=== PATIENT | male | born 1960 | race Caucasian/White ===

== ENCOUNTER → 2017-01-05 | Outpatient (CLI) | payer OTHER ==
[2017-01-05 11:57] LABS: ALT 68 U/L (21-72); AST 39 U/L (17-59); Alkaline Phosphatase 59 U/L (38-126); Anion Gap 10 mmol/L; Blood Urea Nitrogen 26 mg/dL (9-20); Calcium 9.5 mg/dL (8.4-10.2); Carbon Dioxide 28 mmol/L (22-30); Chloride 104 mmol/L (98-107); Cholesterol 324 mg/dL (<200); Glucose 103 mg/dL (74-99); HDL Cholesterol 60 mg/dL (40-60); Non-African American GFR(MDRD) 54 (>60 ml/min/1.73 sqM); Potassium 5.1 mmol/L (3.5-5.1); Sodium 142 mmol/L (137-145); Total Bilirubin 0.9 mg/dL (0.2-1.3); Total Protein 7.6 g/dL (6.3-8.2); Triglycerides 153 mg/dL (<150)
== END | disposition home or self-care (01) ==
LOC: LABWHC1 11:14
PROVIDERS: ATTEND Internal Medicine Endocrinology, Diabetes & Metabolism
DX: E11.9 Type 2 diabetes mellitus without complications (principal); E21.3 Hyperparathyroidism, unspecified
CPT/HCPCS: 36415; 80053; 80061; 82043; 82306; 83970

== ENCOUNTER → 2017-06-29 | Outpatient (CLI) | payer OTHER ==
[2017-06-29 07:48] LABS: ALT 44 U/L (21-72); AST 36 U/L (17-59); Alkaline Phosphatase 48 U/L (38-126); Anion Gap 9 mmol/L; Blood Urea Nitrogen 23 mg/dL (9-20); Calcium 9.5 mg/dL (8.4-10.2); Carbon Dioxide 26 mmol/L (22-30); Chloride 104 mmol/L (98-107); Cholesterol 263 mg/dL (<200); Glucose 101 mg/dL (74-99); HDL Cholesterol 51 mg/dL (40-60); Non-African American GFR(MDRD) 57 (>60 ml/min/1.73 sqM); Potassium 4.8 mmol/L (3.5-5.1); Sodium 139 mmol/L (137-145); Total Protein 7.3 g/dL (6.3-8.2)
[2017-06-29 17:13] LABS: Urine Creatinine 180.3 mg/dL
== END | disposition home or self-care (01) ==
LOC: LABWHC1 07:08
PROVIDERS: ATTEND Internal Medicine Endocrinology, Diabetes & Metabolism
DX: E11.9 Type 2 diabetes mellitus without complications (principal)
CPT/HCPCS: 36415; 80053; 80061; 82043; 82306; 82570

== ENCOUNTER → 2017-10-01 | Outpatient (CLI) | payer OTHER ==
[2017-10-01 09:18] LABS: Basophils # (A) 0.1 k/uL (0-0.2); Basophils % (A) 1 %; CHCM 32.1; Eosinophils # (A) 0.1 k/uL (0-0.7); Eosinophils % (A) 1 %; HCT 50.4 % (39.0-53.0); HGB 15.9 gm/dL (13.0-17.5); Luc # (Auto) 0.11; Luc % (Auto) 2; Lymphocytes # (A) 1.8 k/uL (1.0-4.8); Lymphocytes % (A) 31 %; MCH 30.6 pg (25.0-35.0); MCHC 31.6 g/dL (31.0-37.0); MCV 96.9 fL (80.0-100.0); Mean Platelet Volume 7.3; Monocytes # (A) 0.4 k/uL (0-1.0); Monocytes % (A) 6 %; Neutrophils # (A) 3.5 k/uL (1.3-7.7); Neutrophils % (A) 59 %; RBC 5.21 m/uL (4.30-5.90); RDW 15.4 % (11.5-15.5); WBC (Perox) 5.71
[2017-10-01 09:44] LABS: Appearance,Urine Clear (Clear); Bilirubin,Urine Negative (Negative); Glucose,Urine (UA) Negative (Negative); Ketones,Urine Negative (Negative); Leukocyte Esterase,Urine Negative (Negative); Nitrite,Urine Negative (Negative); PH, Urine 5.5 (5.0-8.0); Protein,Urine Negative (Negative); UA Billing (MACRO vs. MICRO) CHEM; Urobilinogen,Urine <2.0 mg/dL (<2.0)
[2017-10-01 11:39] LABS: ALT 53 U/L (21-72); AST 42 U/L (17-59); Alkaline Phosphatase 56 U/L (38-126); Anion Gap 8 mmol/L; Blood Urea Nitrogen 26 mg/dL (9-20); Calcium 9.7 mg/dL (8.4-10.2); Carbon Dioxide 28 mmol/L (22-30); Chloride 103 mmol/L (98-107); Cholesterol 280 mg/dL (<200); Creatine Kinase 206 U/L (55-170); Glucose 95 mg/dL (74-99); HDL Cholesterol 45 mg/dL (40-60); Non-African American GFR(MDRD) 56 (>60 ml/min/1.73 sqM); Potassium 5.2 mmol/L (3.5-5.1); Sodium 139 mmol/L (137-145); Total Bilirubin 0.8 mg/dL (0.2-1.3); Total Protein 7.5 g/dL (6.3-8.2)
[2017-10-01 12:37] LABS: Rheumatoid Factor, Qnt <9 IU/mL (<12)
[2017-10-01 13:29] LABS: Erythrocyte Sedimentation Rate 8 mm/hr (0-15)
--- NOTE | 2017-10-01 16:31 | US ---
EXAMINATION TYPE: US thyroid st tissue head/neck DATE OF EXAM: 10/01/2017 COMPARISON: NONE CLINICAL HISTORY: 57-year-old male R59.0 Cervical adenopathy. 2 palpable right neck areas for 6 month s. TECHNIQUE: Multiple sonographic images along the right side of the neck at the palpable sites. Some c omparison images of the contralateral side were also obtained. FINDINGS: Right neck posterior palpable area #1: 1.7 x 1.0 x 1.3cm borderline-enlarged lymph node. Right neck anterior palpable area #2: no abnormalities seen at this time. Left neck for comparison: no abnormalities seen at this time. IMPRESSION: 2 palpable sites along the right neck. More posteriorly, there is a borderline enlarged 1.3 cm (short axis) lymph node. This can be followed clinically. The second palpable site anteriorly shows no disc rete abnormality at this time.
[2017-10-01 16:50] LABS: ANA w/Reflex to Titer NEGATIVE (NEGATIVE)
== END | disposition home or self-care (01) ==
LOC: RADUSWWP 08:16
PROVIDERS: ATTEND Family Medicine
DX: R59.0 Localized enlarged lymph nodes (principal); E78.5 Hyperlipidemia, unspecified; E21.3 Hyperparathyroidism, unspecified; E11.9 Type 2 diabetes mellitus without complications; E55.9 Vitamin D deficiency, unspecified; M25.50 Pain in unspecified joint; N39.490 Overflow incontinence
CPT/HCPCS: 36415; 76536; 80053; 80061; 81003; 82043; 82306; 82533; 82550; 82570; 83036; 83970; 84443; 85025; 85652; 86038; 86431

== ENCOUNTER → 2018-02-04 | Outpatient (CLI) | payer BC ==
[2018-02-04 09:42] LABS: Albumin 4.5 g/dL (3.5-5.0); Calcium 9.8 mg/dL (8.4-10.2); Total Protein 7.5 g/dL (6.3-8.2)
[2018-02-04 15:54] LABS: Parathyroid Hormone Intact 72.2 pg/mL (14.0-72.0)
[2018-02-04 15:57] LABS: Vitamin D 25 Hydroxy 41.1 ng/mL (30.0-100.0)
== END | disposition home or self-care (01) ==
LOC: LABWHC1 08:50
PROVIDERS: ATTEND Internal Medicine Endocrinology, Diabetes & Metabolism
DX: E11.9 Type 2 diabetes mellitus without complications (principal); E21.3 Hyperparathyroidism, unspecified; E55.9 Vitamin D deficiency, unspecified
CPT/HCPCS: 36415; 80053; 82306; 83036; 83970

== ENCOUNTER → 2018-09-28 | Outpatient (CLI) | payer BC ==
[2018-09-28 16:51] LABS: Vitamin D 25 Hydroxy 26.6 ng/mL (30.0-100.0)
[2018-09-28 16:58] LABS: Albumin 4.5 g/dL (3.80-4.90); Albumin/Globulin Ratio 2.25 (1.20-2.10); Anion Gap 6.2 mmol/L (4.00-12.00); Calcium 9.5 mg/dL (8.7-10.3); Carbon Dioxide 28.8 mmol/L (21.6-31.8); LDL Cholesterol,Calculated 108.8 mg/dL (0.0-131.0); Potassium 5.5 mmol/L (3.5-5.5); Total Protein 6.5 g/dL (6.2-8.2); VLDL Calculation 23.2 mg/dL (5.00-40.00)
[2018-09-28 17:05] LABS: Parathyroid Hormone Intact 91.5 pg/mL (14.0-72.0)
[2018-09-28 18:32] LABS: Hemoglobin A1C 6.3 % (4.0-6.0)
== END | disposition home or self-care (01) ==
LOC: LABWHC1 08:39
PROVIDERS: ATTEND Internal Medicine Endocrinology, Diabetes & Metabolism
DX: E11.65 Type 2 diabetes mellitus with hyperglycemia (principal); E21.3 Hyperparathyroidism, unspecified; E78.5 Hyperlipidemia, unspecified
CPT/HCPCS: 36415; 80053; 80061; 82043; 82306; 82550; 82570; 82607; 83036; 83970; 84443

== ENCOUNTER 2019-02-21 03:28 | Emergency (ER) | payer BC ==
[2019-02-21] MEDS ORDERED: IPRATROPIUM-ALBUTEROL 3 ML NEB INHALATION STA (04:02)
[2019-02-21] MEDS ORDERED: predniSONE 20 MG TAB PO STA (04:03)
--- NOTE | 2019-02-21 04:52 | XR ---
EXAM: XR Chest, 2 Views CLINICAL HISTORY: ITS.REASON XR Reason: cough TECHNIQUE: Frontal and lateral views of the chest. COMPARISON: 10/02/2016. FINDINGS: Lungs: Low lung volumes. Lungs appear clear. Pleural space: Unremarkable. No pneumothorax. Heart: Stable cardiomediastinal silhouette. Mediastinum: See above. Bones/joints: Degenerative changes of the thoracic findings Tubes, lines and devices: Stable left chest wall pacemaker. IMPRESSION: No acute findings.
--- NOTE | 2019-02-21 04:54 | ED ---
SOB HPI - General Chief Complaint: Shortness of Breath Stated Complaint: IMELDA Time Seen by Provider: 02/21/19 04:02 Source: patient, family Mode of arrival: ambulatory Limitations: no limitations - History of Present Illness Initial Comments: This is a 58-year-old gentleman with a history of asthma presents the emergency department today for evaluation of wheezing and shortness of breath. Patient reports that in the past his asthma has been exacerbated by weather changes, he did spend last week in [place] reports that he did have some wheezing throughout that trip. Patient reports he is feeling better yesterday, he went to bed feeling fine he woke suddenly this morning with wheezing coughing he felt as though he couldn't get his breath. He attempted to use his MDI inhaler with minimal relief at which time his decided to bring the ER for evaluation. She patient denies any chest pain or palpitations he describes feeling as though his airways are very tight and he is wheezing and coughing. Patient does have a history of significant GERD which she had surgical repair of his esophagus for 10 or 12 years ago is now evidently of medications since that time however he does report that recently has been having some acid reflux-like symptoms and his does confirm he's been complaining of acid reflux especially after eating. the patient is scheduled to see Dr. Issa in the near future for evaluation of abdominal pain and will discuss possible plan for colonoscopy and endoscopy. - Related Data Home Medications Medication Instructions Recorded Confirmed Metoprolol Tartrate [Lopressor] 25 mg PO BID 09/11/14 10/06/16 Venlafaxine HCl [Effexor] 50 mg PO DAILY 09/11/14 10/06/16 Flecainide Acetate 50 mg PO Q8H 12/18/14 10/06/16 Temazepam [Restoril] 30 mg PO HS PRN 12/18/14 10/06/16 Venlafaxine HCl [Effexor] 25 mg PO HS 12/18/14 10/06/16 Previous Rx's Medication Instructions Recorded Tamsulosin HCl [Flomax] 0.4 mg PO DAILY #10 cap 09/11/14 predniSONE [Deltasone] 40 mg PO DAILY 5 Days #10 tablet 02/21/19 Allergies Allergy/AdvReac Type Severity Reaction Status Date / Time No Known Allergies Allergy Verified 02/21/19 03:36 Review of Systems ROS Statement: Those systems with pertinent positive or pertinent negative responses have been documented in the HPI. ROS Other: All systems not noted in ROS Statement are negative. Past Medical History Past Medical History: Asthma, Diabetes Mellitus Additional Past Medical History / Comment(s): tachycardia, PVC'S History of Any Multi-Drug Resistant Organisms: None Reported Past Surgical History: Back Surgery, Orthopedic Surgery, Pacemaker Additional Past Surgical History / Comment(s): LT KNEE SX X2. RT KNEE SCOPE. HIATAL HERNIA REPAIR. COLONOSCOPY Past Anesthesia/Blood Transfusion Reactions: Previous Problems w/ Anesthesia Additional Past Anesthesia/Blood Transfusion Reaction / Comment(s): SLOW TO COME OUT OF ANESTHESIA Type of Cardiac Device: Permanent Pacemaker Device Placement Date:: 2010 Past Psychological History: Depression Smoking Status: Never smoker Past Alcohol Use History: None Reported Past Drug Use History: None Reported - Past Family History Father Family Medical History: Cancer Mother Family Medical History: Deep Vein Thrombosis (DVT), Rheumatoid Arthritis (RA) General Exam - General Exam Comments Initial Comments: Physical Exam GENERAL: Patient is well-developed and well-nourished. Patient is nontoxic and well-hydrated, patient is coughing very loudly has audit ory expiratory wheezing without a stethoscope HENT: Normocephalic, Atraumatic. EYES: PERRL, EOMI PULMONARY: Tachypnea, agrees work of breathing, significant wheezing no stridor CARDIOVASCULAR: There is a regular rate and rhythm without any murmurs gallops or rubs. ABDOMEN: Soft and nontender with normal bowel sounds. SKIN: Skin is clear with no lesions or rashes and otherwise unremarkable. : Deferred NEUROLOGIC: Patient is alert and oriented x3. Moving all extremities spontaneously MUSCULOSKELETAL: Normal extremities with adequate strength and full range of motion. No lower e xtremity swelling or edema. No calf tenderness. PSYCHIATRIC: Normal psychiatric evaluation. Limitations: no limitations Limitations: no limitations Course Vital Signs 02/21/19 02/21/19 02/21/19 03:33 04:17 04:37 Temperature 97.7 F Pulse Rate 62 60 65 Respiratory 24 Rate Blood Pressure 110/74 O2 Sat by Pulse 100 Oximetry Medical Decision Making - Medical Decision Making Patient was seen and evaluated patient with a significant cough and expiratory wheeze has a history of asthma no history of COPD Breathing treatments chest x-ray and steroids were ordered Patient was reevaluated after treatment, complete resolution of the wheezing he's feeling much better there is no increased work of breathing he is somewhat jittery from the breathing treatments and steroids if a chest x-ray with no acute findings at this time the patient is comfortable with the plan for discharge home and by mouth steroids he is arty scheduled to follow-up with a building maintenance superintendent Dr. Hawkins. I did discuss with the patient possible etiology for his wheezing including weather changes versus silent aspiration of gastric contents giving that he is been experiencing GERD and this did happen at night. Patient is scheduled to follow-up with Dr Haro on abdominal pain and possible colonoscopy he will discuss this with him at that time and discussed the possibility of endoscopy as well. All questions pertaining care were answered return parameters were discussed and the patient was discharged home in stable condition - EKG Data -: EKG Interpreted by Me EKG shows normal: sinus rhythm Rate: normal EKG Comments: EKG was obtained at 3:46 AM, rate is 62 rhythm is sinus there is a normal axis OH is prolonged at 314, QRS 114, QTC to [address] elevations or depressions no evidence of acute ischemia or infarction. This is sinus rhythm with first-degree AV block. Disposition Clinical Impression: Asthma with exacerbation Disposition: HOME SELF-CARE Condition: Stable Instructions (If sedation given, give patient instructions): Asthma (ED) Prescriptions: predniSONE [Deltasone] 40 mg PO DAILY 5 Days #10 tablet Is patient prescribed a controlled substance at d/c from ED?: No Referrals: Floresita Bonilla MD [Primary Care Provider] - 1-2 days
[2019-02-21 06:12] VITALS: BP 127/85; PULSE 73; RESP 16; TEMP 98
== END 2019-02-21 06:05 | disposition home or self-care (01) ==
LOC: EC 03:28
DX: J45.901 Unspecified asthma with (acute) exacerbation (principal); F32.9 Major depressive disorder, single episode, unspecified; Z79.899 Other long term (current) drug therapy; Z95.0 Presence of cardiac pacemaker
CPT/HCPCS: 94640; 93005; 71046; 99285; J7512

== ENCOUNTER → 2019-02-25 | Outpatient (CLI) | payer BC ==
[2019-02-25 16:51] LABS: Albumin 4.6 g/dL (3.80-4.90); Anion Gap 6.9 mmol/L (4.00-12.00); Calcium 10.2 mg/dL (8.7-10.3); Carbon Dioxide 28.1 mmol/L (21.6-31.8); Globulin 2.3 g/dL (1.6-3.3); Potassium 5.1 mmol/L (3.5-5.5); Total Bilirubin 0.9 mg/dL (0.3-1.2); Total Protein 6.9 g/dL (6.2-8.2)
[2019-02-25 19:09] LABS: Hemoglobin A1C 6.4 % (4.0-6.0)
== END | disposition home or self-care (01) ==
LOC: LABWHC1 08:20
PROVIDERS: ATTEND Internal Medicine Endocrinology, Diabetes & Metabolism
DX: E11.65 Type 2 diabetes mellitus with hyperglycemia (principal); E55.9 Vitamin D deficiency, unspecified
CPT/HCPCS: 36415; 80053; 82306; 83036; 84443

== ENCOUNTER → 2019-06-16 | Outpatient (CLI) | payer BC ==
[2019-06-16 11:39] LABS: African American GFR (CKD) 62.4 (60.0-200.0); Albumin 4.3 g/dL (3.80-4.90); Albumin/Globulin Ratio 2.15 (1.60-3.17); Anion Gap 6.4 mmol/L (4.00-12.00); BUN/Creat Ratio 15.71 Ratio (12.00-20.00); Calcium 9.4 mg/dL (8.7-10.3); Carbon Dioxide 27.6 mmol/L (21.6-31.8); LDL Cholesterol,Calculated 111.4 mg/dL (0.0-131.0); Potassium 4.7 mmol/L (3.5-5.5); Total Bilirubin 0.5 mg/dL (0.3-1.2); Total Protein 6.3 g/dL (6.2-8.2); VLDL Calculation 27.6 mg/dL (5.00-40.00)
[2019-06-16 11:50] LABS: Vitamin D 25 Hydroxy 42.8 ng/mL (30.0-100.0)
[2019-06-16 15:31] LABS: Hemoglobin A1C 6.1 % (4.0-6.0)
== END | disposition home or self-care (01) ==
LOC: LABWHC1 07:28
PROVIDERS: ATTEND Internal Medicine Endocrinology, Diabetes & Metabolism
DX: E11.65 Type 2 diabetes mellitus with hyperglycemia (principal); E55.9 Vitamin D deficiency, unspecified; E21.3 Hyperparathyroidism, unspecified; E78.5 Hyperlipidemia, unspecified; Z12.5 Encounter for screening for malignant neoplasm of prostate
CPT/HCPCS: 80061; 80053; 84443; 82306; 83970; 82043; 82570; 83036; 36415; G0103

== ENCOUNTER → 2019-09-30 | Outpatient (CLI) | payer BC ==
[2019-09-30 17:25] LABS: African American GFR (CKD) 68.3 (60.0-200.0); Albumin 4.6 g/dL (3.80-4.90); Albumin/Globulin Ratio 2.3 (1.60-3.17); Anion Gap 6.6 mmol/L (4.00-12.00); BUN/Creat Ratio 16.15 Ratio (12.00-20.00); Calcium 9.5 mg/dL (8.7-10.3); Carbon Dioxide 29.4 mmol/L (21.6-31.8); Chol/HDL Ratio 4.38; LDL Cholesterol,Calculated 153.2 mg/dL (0.0-131.0); Potassium 5.2 mmol/L (3.5-5.5); Total Bilirubin 0.8 mg/dL (0.3-1.2); Total Protein 6.6 g/dL (6.2-8.2); VLDL Calculation 32.8 mg/dL (5.00-40.00)
[2019-09-30 19:01] LABS: Hemoglobin A1C 5.9 % (4.0-6.0)
== END | disposition home or self-care (01) ==
LOC: LABWHC1 09:43
PROVIDERS: ATTEND Internal Medicine Endocrinology, Diabetes & Metabolism
DX: E11.9 Type 2 diabetes mellitus without complications (principal); E55.9 Vitamin D deficiency, unspecified; E21.3 Hyperparathyroidism, unspecified
CPT/HCPCS: 36415; 80053; 80061; 82306; 83036; 83970

== ENCOUNTER → 2020-01-17 | Outpatient (CLI) | payer BC ==
[2020-01-17 15:53] LABS: African American GFR (CKD) 62.4 (60.0-200.0); Albumin 4.4 g/dL (3.80-4.90); Albumin/Globulin Ratio 1.91 (1.60-3.17); Anion Gap 6.3 mmol/L (4.00-12.00); BUN/Creat Ratio 17.14 Ratio (12.00-20.00); Calcium 9.6 mg/dL (8.7-10.3); Carbon Dioxide 30.7 mmol/L (21.6-31.8); Chol/HDL Ratio 2.94; Globulin 2.3 g/dL (1.6-3.3); LDL Cholesterol,Calculated 119.8 mg/dL (0.0-131.0); Non-African American GFR(CKD) 53.8 (60.0-200.0); Total Bilirubin 1.2 mg/dL (0.2-1.2); Total Protein 6.7 g/dL (6.2-8.2); VLDL Calculation 16.2 mg/dL (5.00-40.00)
[2020-01-17 17:13] LABS: Hemoglobin A1C 6.3 % (4.0-6.0)
== END | disposition home or self-care (01) ==
LOC: LABWHC1 08:44
PROVIDERS: ATTEND Internal Medicine Endocrinology, Diabetes & Metabolism
DX: E11.9 Type 2 diabetes mellitus without complications (principal); E55.9 Vitamin D deficiency, unspecified; E21.3 Hyperparathyroidism, unspecified
CPT/HCPCS: 36415; 80053; 80061; 82306; 83036; 83970

== ENCOUNTER → 2020-09-13 | Outpatient (CLI) | payer BC ==
[2020-09-13 17:52] LABS: Albumin 4.3 g/dL (3.80-4.90); Albumin/Globulin Ratio 1.95 (1.60-3.17); Anion Gap 7.1 mmol/L (4.00-12.00); BUN/Creat Ratio 12.86 Ratio (12.00-20.00); Calcium 9.4 mg/dL (8.7-10.3); Carbon Dioxide 28.9 mmol/L (21.6-31.8); Chol/HDL Ratio 5.35; Globulin 2.2 g/dL (1.6-3.3); Non-African American GFR(CKD) 53.5 (60.0-200.0); Potassium 5.2 mmol/L (3.5-5.5); Total Protein 6.5 g/dL (6.2-8.2)
[2020-09-13 19:16] LABS: Hemoglobin A1C 6.1 % (4.0-6.0)
== END | disposition home or self-care (01) ==
LOC: LABWHC1 09:21
PROVIDERS: ATTEND Internal Medicine Endocrinology, Diabetes & Metabolism
DX: E11.9 Type 2 diabetes mellitus without complications (principal); E21.0 Primary hyperparathyroidism
CPT/HCPCS: 36415; 80053; 80061; 82043; 82306; 82570; 83036; 83970; 84443

== ENCOUNTER → 2020-11-26 | Outpatient (CLI) | payer BC ==
--- NOTE | 2020-11-26 08:28 | CT ---
EXAMINATION TYPE: CT lumbar spine wo con DATE OF EXAM: 11/26/2020 8:12 AM COMPARISON: None. HISTORY: low back pain, lumbar region radiculopathy, spondylolisthesis, osteophyte, primary osteoarth ritis, spondylolisthesis L4-L5, lumbar disc disease L5-S1, bilateral radiculopathy right worse than l eft. Right lower extremity weakness. CT DLP: 1487.9 mGycm Automated exposure control for dose reduction was used. Unenhanced CT of the lumbar spine was performed. Bone and soft tissue window settings are submitted as well as coronal and sagittal reconstructions. There are 5 lumbar type vertebra identified. There is slight grade 1 retrolisthesis L5 on S1. No pars defects. Moderate disc space narrowing with moderate to severe spurring L5-S1 level otherwise verteb ral body heights and disc space heights are maintained. Review of axial images shows T12-L1, L1-L2, and L2-L3 levels all 2 appear within normal limits. Axial images at L3-L4 level mild broad disc bulge mildly effacing the anterior thecal sac, patent giuseppe ateral neural foramina. Mild facet arthropathy bilaterally. Axial images at the L4-L5 level show moderate broad disc bulge and moderate facet degenerative change s. There is effacement of the anterior and posterior lateral thecal sac and at least 57. There is mod erate left and mild right-sided neural foraminal narrowing. Axial images at L5-S1 levels with spondylolisthesis with left paracentral spur disc complex, some enc roachment on the central left S1 nerve suspected axial image 67. Patent spinal canal. Mild bilateral neural foraminal narrowing. Bilateral laminectomy defects. Paraspinal muscle bulk is maintained. Mild calcified plaque of the abdominal aorta. IMPRESSION: Postsurgical change lumbosacral junction. Multilevel degenerative changes greatest at L5-S1 level as detailed above.
== END | disposition home or self-care (01) ==
LOC: RADCTMAIN 07:53
PROVIDERS: ATTEND Orthopaedic Surgery Orthopaedic Surgery of the Spine
DX: M47.27 Other spondylosis with radiculopathy, lumbosacral region (principal); M16.0 Bilateral primary osteoarthritis of hip; E11.9 Type 2 diabetes mellitus without complications; Z98.890 Other specified postprocedural states
CPT/HCPCS: 72131

== ENCOUNTER → 2020-12-29 | Outpatient (CLI) | payer BC ==
[2020-12-29 12:47] LABS: Albumin 4.5 g/dL (3.80-4.90); Albumin/Globulin Ratio 2.65 (1.60-3.17); Anion Gap 8.4 mmol/L (4.00-12.00); BUN/Creat Ratio 12.86 Ratio (12.00-20.00); Calcium 9.1 mg/dL (8.7-10.3); Carbon Dioxide 27.6 mmol/L (21.6-31.8); Chol/HDL Ratio 4.26; Globulin 1.7 g/dL (1.6-3.3); LDL Cholesterol,Calculated 114.2 mg/dL (0.0-131.0); Non-African American GFR(CKD) 53.5 (60.0-200.0); Potassium 4.4 mmol/L (3.5-5.5); Total Bilirubin 0.9 mg/dL (0.2-1.2); Total Protein 6.2 g/dL (6.2-8.2); VLDL Calculation 35.8 mg/dL (5.00-40.00)
[2020-12-29 16:41] LABS: Hemoglobin A1C 6.2 % (4.0-6.0)
[2020-12-29 17:41] LABS: Urine Creatinine 105.5 mg/dL
== END | disposition home or self-care (01) ==
LOC: LABWHC1 07:53
PROVIDERS: ATTEND Internal Medicine Interventional Cardiology
DX: E11.9 Type 2 diabetes mellitus without complications (principal); E78.2 Mixed hyperlipidemia
CPT/HCPCS: 36415; 80053; 80061; 82043; 82550; 82570; 83036; 84443

== ENCOUNTER → 2021-04-04 | Outpatient (CLI) | payer BC ==
[2021-04-04 16:04] LABS: African American GFR (CKD) 74.7 (60.0-200.0); Albumin 4.1 g/dL (3.80-4.90); Albumin/Globulin Ratio 1.78 (1.60-3.17); Anion Gap 7.1 mmol/L (4.00-12.00); BUN/Creat Ratio 16.67 Ratio (12.00-20.00); Calcium 8.9 mg/dL (8.7-10.3); Carbon Dioxide 27.9 mmol/L (21.6-31.8); Chol/HDL Ratio 5.05; Globulin 2.3 g/dL (1.6-3.3); LDL Cholesterol,Calculated 131.8 mg/dL (0.0-131.0); Non-African American GFR(CKD) 64.4 (60.0-200.0); Potassium 5.2 mmol/L (3.5-5.5); Total Bilirubin 0.8 mg/dL (0.2-1.2); Total Protein 6.4 g/dL (6.2-8.2); VLDL Calculation 42.2 mg/dL (5.00-40.00)
[2021-04-04 17:36] LABS: Hemoglobin A1C 6.1 % (4.0-6.0)
[2021-04-04 20:11] LABS: Urine Creatinine 63.2 mg/dL
== END | disposition home or self-care (01) ==
LOC: LABWHC1 07:31
PROVIDERS: ATTEND Internal Medicine Endocrinology, Diabetes & Metabolism
DX: E11.65 Type 2 diabetes mellitus with hyperglycemia (principal); E55.9 Vitamin D deficiency, unspecified; E21.3 Hyperparathyroidism, unspecified
CPT/HCPCS: 36415; 80053; 80061; 82043; 82306; 82570; 83036; 83970; 84443

== ENCOUNTER 2021-09-20 06:46 | Day surgery (SDC) | payer BC ==
[2021-09-15 11:11] VITALS: BMI 33.2
[~2021-09-20 06:46] MED LIST: LACTATED RINGERS 1,000 ML IV SCH
[2021-09-20 07:06] VITALS: TEMP 97.8
[2021-09-20] MEDS ORDERED: LACTATED RINGERS 1,000 ML IV ONE (07:08)
[2021-09-20 07:22] LABS: Glucose,Whole Blood 89 mg/dL (75-99)
[2021-09-20] MEDS ORDERED: PROPOFOL 10 MG/ML 20 ML VIAL IV ONE (07:37)
[2021-09-20] MEDS ORDERED: LIDOCAINE 1% INJ 10MG/ML (20 ML MDV) ONE (07:37)
--- NOTE | 2021-09-20 07:41 | P.GSHP ---
History of Present Illness H&P Date: 09/20/21 Chief Complaint: Colon cancer screening 61-year-old male here today for colonoscopy. Patient's last colonoscopy 5 years ago. Poor prep that time. Personal history of colon polyps in the past. Patient has history of prolapsing internal hemorrhoids chronically. No acute c omplaints. He is interested in having hemorrhoidal banding. Past Medical History Past Medical History: Asthma, Diabetes Mellitus, Hypertension, Osteoarthritis (OA), Sleep Apnea/CPAP/BIPAP Additional Past Medical History / Comment(s): Tachycardia, PVC'S. "Issues with one kidney, Dr watching #'s." CPAP use. Arthritis in back, hips and knees, bone spurs to L2-L5. History of Any Multi-Drug Resistant Organisms: None Reported Past Surgical History: Back Surgery, Orthopedic Surgery, Pacemaker Additional Past Surgical History / Comment(s): LEFT KNEE SURGERY X2, RIGHTT KNEE SCOPE, HIATAL HERNIA/ESOPHAGUS REPAIR, COLONOSCOPY. Past Anesthesia/Blood Transfusion Reactions: Previous Problems w/ Anesthesia, Motion Sickness Additional Past Anesthesia/Blood Transfusion Reaction / Comment(s): SLOW TO COME OUT OF ANESTHESIA. Type of Cardiac Device: Permanent Pacemaker Device Placement Date:: 2010 Past Psychological History: Depression Smoking Status: Never smoker Past Alcohol Use History: None Reported Past Drug Use History: None Reported - Past Family History Father Family Medical History: Cancer Mother Family Medical History: Rheumatoid Arthritis (RA) Brother(s) Family Medical History: Deep Vein Thrombosis (DVT) Medications and Allergies Home Medications Medication Instructions Recorded Confirmed Type Metoprolol Tartrate [Lopressor] 25 mg PO BID 09/11/14 09/15/21 History Tamsulosin HCl [Flomax] 0.4 mg PO DAILY #10 cap 09/11/14 09/15/21 Rx Venlafaxine HCl [Effexor] 75 mg PO DAILY 09/11/14 09/15/21 History Flecainide Acetate 50 mg PO BID 12/18/14 09/15/21 History Actos (Unknown Dose) 1 tab PO BID 09/15/21 09/15/21 History Cyclobenzaprine [Flexeril] 10 mg PO HS 09/15/21 09/15/21 History Doxepin [SINEquan] 10 mg PO HS 09/15/21 09/15/21 History Fluticasone/Vilanterol [Breo 1 inhalation INHALATION QAM 09/15/21 09/15/21 History Ellipta 200-25 Mcg Inhaler] Gabapentin 300 mg PO DAILY 09/15/21 09/15/21 History Rosuvastatin Calcium 5 mg PO DAILY 09/15/21 09/15/21 History Allergies Allergy/AdvReac Type Severity Reaction Status Date / Time No Known Allergies Allergy Verified 09/15/21 11:12 Surgical - Exam Vital Signs Temp Pulse Resp BP Pulse Ox 97.8 F 88 18 178/89 97 09/20/21 07:05 09/20/21 07:05 09/20/21 07:05 09/20/21 07:05 09/20/21 07:05 Physical exam: General: Well-developed, well-nourished HEENT: Normocephalic, sclerae nonicteric Abdomen: Nontender, nondistended Extremities: No edema Neuro: Alert and oriented Assessment and Plan (1) Colon cancer screening Narrative/Plan: Will proceed with colonoscopy with possible hemorrhoidal banding. Risks of bleeding, infection, scarring, recurrent hemorrhoids, stricture reviewed. He understands and wishes to proceed. Current Visit: No Status: Acute Code(s): Z12.11 - ENCOUNTER FOR SCREENING FOR MALIGNANT NEOPLASM OF COLON SNOMED Code(s): 928885067
--- NOTE | 2021-09-20 08:00 | P.PCN ---
Date of Procedure: 09/20/21 Procedure(s) Performed: PREOPERATIVE DIAGNOSIS: Colon cancer screening, prolapsing hemorrhoids, history of polyps POSTOPERATIVE DIAGNOSIS: Poor prep, unable to reach cecum PROCEDURE: Colonoscopy ANESTHESIA: MAC SURGEON: Cruzito Haro M.D. SPECIMENS: None ENDOSCOPIC PROCEDURE: The patient was placed on the endoscopy table in the left decubitus position. The Olympus colonoscope was inserted into the anus and passed under direct visualization to the proximal transverse colon. We could not say for certainty how close we were to the cecum. The patient had a poor prep with significant tortuosity. We got to a point where advancing further was challenging and I could not visualize the lumen well because of the prep. The scope was then withdrawn. Attempts at evacuating some of the stool was mostly unsuccessful. We could not visualize the mucosal surfaces well. No large masses were seen. No obvious diverticulosis was noted. I did not use the anoscope given the poor prep. Digital rectal examination was normal. The patient was taken to the recovery room in stable condition per anesthesia guidelines. RECOMMENDATIONS: Resume diet. Will require short-term repeat colonoscopy with 2 day prep.
[2021-09-20 08:23] VITALS: BP 121/63; PULSE 66; RESP 20
== END 2021-09-20 08:53 | disposition home or self-care (01) ==
LOC: ORWHC2ENDO 06:46
PROVIDERS: ATTEND Surgery
DX: Z12.11 Encounter for screening for malignant neoplasm of colon (principal); E11.9 Type 2 diabetes mellitus without complications; G47.30 Sleep apnea, unspecified; I10 Essential (primary) hypertension; J45.909 Unspecified asthma, uncomplicated; M19.90 Unspecified osteoarthritis, unspecified site; Z79.84 Long term (current) use of oral hypoglycemic drugs; Z87.19 Personal history of other diseases of the digestive system; Z95.0 Presence of cardiac pacemaker; F32.9 Major depressive disorder, single episode, unspecified
CPT/HCPCS: 45378; J2001; J2704

== ENCOUNTER → 2022-04-25 | Outpatient (CLI) | payer BC ==
[2022-04-25 12:56] LABS: Partial Thromboplastin Time 25.9 sec (22.0-30.0); Prothrombin Time 10.7 sec (9.0-12.0)
[2022-04-25 18:35] LABS: HCT 47.9 % (39.6-50.0); HGB 15.4 g/dL (13.0-17.0); MCH 29.7 pg (27.0-32.0); MCHC 32.2 g/dL (32.0-37.0); MCV 92.5 fL (80.0-97.0); Mean Platelet Volume 10.3 fL (9.5-12.2); NRBC Per 100 WBC 0 /100 WBCS (0.0-0.0); Platelet Count 201 X 10*3/uL (140-440); RBC 5.18 X 10*6/uL (4.40-5.60); WBC 5.71 X 10*3/uL (4.50-10.00)
[2022-04-25 18:36] LABS: African American GFR (CKD) 66.8 (60.0-200.0); Albumin 4.5 g/dL (3.8-4.9); Albumin/Globulin Ratio 2.04 (1.60-3.17); Anion Gap 11.4 mmol/L (10.00-18.00); BUN/Creat Ratio 15.54 Ratio (12.00-20.00); Blood Urea Nitrogen 20.2 mg/dL (9.0-27.0); Calcium 9.8 mg/dL (8.7-10.3); Carbon Dioxide 26.1 mmol/L (20.0-27.5); Globulin 2.2 g/dL (1.6-3.3); Non-African American GFR(CKD) 57.7 (60.0-200.0); Potassium 5.1 mmol/L (3.5-5.5); Total Bilirubin 0.8 mg/dL (0.30-1.20); Total Protein 6.7 g/dL (6.2-8.2)
[2022-04-25 19:55] LABS: Appearance,Urine Clear (Clear); Bilirubin,Urine Negative (Negative); Blood,Urine Negative (Negative); Color,Urine Yellow (Yellow); Ketones,Urine Negative (Negative); Nitrite,Urine Negative (Negative); Specific Gravity,Urine 1.008 (1.001-1.030); Urobilinogen,Urine 0.2 (0.2,1.0)
== END | disposition home or self-care (01) ==
LOC: LABPAT 11:18
PROVIDERS: ATTEND Orthopaedic Surgery
DX: Z01.812 Encounter for preprocedural laboratory examination (principal)
CPT/HCPCS: 80053; 81003; 85027; 85610; 85730; 87070

== ENCOUNTER → 2022-04-25 | Outpatient (CLI) | payer BC | END | disposition home or self-care (01) | LOC: LABWHC1 11:15 | PROVIDERS: ATTEND Family Medicine | DX: Z53.9 Procedure and treatment not carried out, unspecified reason (principal) ==

== ENCOUNTER 2022-05-02 05:33 | Day surgery (SDC) | payer BC ==
[2022-04-27 09:44] VITALS: BMI 33.6
[~2022-05-02 05:33] MED LIST changes: +ACETAMINOPHEN TAB 500 MG TAB PO PRN; +GABAPENTIN 300 MG CAP PO PRN; -LACTATED RINGERS 1,000 ML IV SCH; +MELOXICAM 7.5 MG TAB PO PRN; +TRANEXAMIC ACID IN NACL,ISO-OS 1,000 MG in SALINE 1 100ML.BAG IVPB PRN
[2022-05-02] MEDS ORDERED: ONDANSETRON 4 MG/2 ML VIAL IVP ONE (05:44)
[2022-05-02] MEDS ORDERED: LIDOCAINE 1% (10MG/ML) FOR IV START INTRADERMA PRN (05:44)
[2022-05-02] MEDS ORDERED: DEXAMETHASONE SOD PHOSPHATE 4 MG/ML 1 ML VIAL IV ONE (05:44)
[2022-05-02] MEDS ORDERED: MIDAZOLAM 2 MG/2 ML VIAL IV PRN (05:44)
[2022-05-02] MEDS: LACTATED RINGERS 1,000 ML IV SCH (06:00)
[2022-05-02 06:22] LABS: Glucose,Whole Blood 92 mg/dL (75-99)
[2022-05-02] MEDS ORDERED: PHENYLEPHRINE-0.9% NACL SYG 1,000 MCG/10 ML SYRINGE ONE (06:52)
[2022-05-02] MEDS ORDERED: ePHEDrine 50 MG/ML 1 ML VIAL ONE (06:52)
[2022-05-02] MEDS ORDERED: TRANEXAMIC ACID IN NACL,ISO-OS 1,000 MG/100 ML BAG ONE (06:52)
[2022-05-02] MEDS ORDERED: MIDAZOLAM 2 MG/2 ML VIAL ONE (06:52)
[2022-05-02] MEDS ORDERED: PROPOFOL 10 MG/ML 20 ML VIAL IV ONE (06:52)
[2022-05-02] MEDS ORDERED: ceFAZolin 1,000 MG in SODIUM CHLORIDE 0.9% 1,000 ML IRRIGATION ONE (06:58)
[2022-05-02] MEDS ORDERED: HYDROmorphone 0.5 MG/0.5 ML SYRINGE IVP PRN ×2 (07:00→08:45)
[2022-05-02] MEDS ORDERED: ROPIVACAINE 5 MG/ML 30 ML VIAL MISCELLANE ONE ×2 (07:23→08:06)
--- NOTE | 2022-05-02 08:16 | P.OP ---
Date of Procedure: 05/02/22 Preoperative Diagnosis: Severe osteoarthritis right hip Postoperative Diagnosis: Severe osteoarthritis right hip Procedure(s) Performed: Right total hip arthroplasty with a direct anterior approach Implants: [employer] Polarstem standard size 3 [employer] R3, 3 hole hemispherical acetabular shell, 52 mm [employer] Reflection 6.5 mm cancellus screw, 20 mm 2 [employer] R3, XLPE 20 acetabular liner [employer] Oxinium femoral head 36 m, +0 All components were press-fit. The articulation is Oxinium on polyethylene. Anesthesia: spinal Surgeon: Luis Preciado Yard Pilot #1: Rory Flores Estimated Blood Loss (ml): 300 Pathology: other (Femoral head) Condition: stable Disposition: PACU Indications for Procedure: After failure of conservative treatment we discussed the surgical and nonsurgical treatment options at length. Patient wishes to proceed with a total hip arthroplasty with a direct anterior approach. Complications specific to this procedure were discussed at length, including but not limited to infection, leg length discrepancy, dislocation, nerve injury, and fracture. Covid-19 was also discussed at length with the patient, and they are aware of the current policies and procedures. The patient was given the option of delaying surgery, but they elect to proceed knowing these risks. Patient is aware of all these complications and informed consent was obtained Operative Findings: The operative findings are consistent with severe osteoarthritis of the right hip Description of Procedure: Patient was seen and evaluated in the preoperative area and the consent was reviewed. The operative site was marked with a skin marker. The patient was then brought to the operating room and given preoperative antibiotics i ntravenously. 1 g of Tranexamic acid was also given intravenously. A spinal anesthetic was administered by the anesthesia department. The patient was then placed on the [place] table with the bony prominences well-padded. The hip area was then prepped with a ChloraPrep solution and draped in the usual sterile fashion. A universal timeout was then performed, which confirmed the patient's name, s urgical site, ALLERGIES, and procedure being performed on the consent. Next the incision site was located at 1 cm distal and 2 cm lateral to the anterior superior iliac spine. The skin and subcutaneous tissues were sharply incised. Incision was carefully dissected down to the fascia overlying the tensor fascia kenn muscle. This fascia was then incised in line with the incision. Care was taken to stay laterally in order to avoid injuring the lateral femoral cutaneous nerve. Next, using blunt finger dissection, the tensor fascia kenn muscle was dissected off its investing fascia. The muscle was then carefully retracted laterally with a cobra retractor over the lateral neck of the femur. Next, the circumflex vessels were identified and cauterized using the AquaMantis device. The anterior hip capsule was then exposed. The capsule was then opened and an inverted T fashion. Cobra retractors were then placed intracapsularly. The retractors were maintained intracapsular throughout the procedure. The proximal femur was then visualized. Fluoroscopic x-rays were then taken in order to evaluate the preoperative leg lengths. A small amount of traction was placed on the leg. The femoral neck was then osteotomized at the appropriate level above the lesser trochanter. A small wedge of bone was then removed from the remaining femoral head. Next, using a corkscrew the femoral head was removed from the acetabulum. On gross visual inspection, the femoral head had complete loss of articular cartilage and multiple periarticular osteophytes. The femoral head was then measured. Attention was then turned to the acetabulum. The acetabulum was exposed and any remaining labrum was excised. Sequential reaming of the acetabulum was performed using fluoroscopic guidance until there was a good bed of bleeding cancellus bone. When the appropriate size was reached, a trial was then placed. The position and fit of the trial was checked with fluoroscopy. The trial was then removed. Then, using fluoroscopic guidance, the final implant was impacted at 20 of anteversion and 40 of abduction, and fully seated in the acetabulum. 2 screws were then placed in the acetabulum. Again fluoroscopy was used to check position of the screws. Next, the liner was then impacted, with a 20 elevated liner located in the anterior superior quadrant. Component locking was confirmed. Attention was then directed to the femur. With the aid of the [place] table, the femur was externally rotated to approximately 130, extended, and adducted under the opposite leg. A side hook was then placed under the proximal femur, and the side hook elevator was used to elevate the proximal femur while releasing the capsule. Retractors were then placed. A capsular release was performed, as wel l as a release of the conjoined tendon, which afforded excellent visualization of the proximal femur. Next, a box osteotome was used to lateralize the proximal femur. A ice handler was then used to locate the femoral canal. Sequential broaching was then performed with appropriate size which afforded excellent fixation in the proximal femur. A trial was then placed with appropriate head and neck, and the hip was gently reduced with the aid of the [place] table. Fluoroscopy was then used to check position of the components, as well as to ensure equal leg lengths. The hip was then gently dislocated and the trials were then removed. Final implants were then impacted and the hip was again reduced. Final fluoroscopic x-rays confirmed that the components were in anatomic position, as well as equal leg lengths. The hip was also taken through range of motion, and found to be stable. The hip was then copiously irrigated with antibiotic solution with pulsatile lavage. The hip was then irrigated with Irrisept solution. The soft tissues were then injected with a ropivacaine solution. A second dose of 1 g of Tranexamic acid was also given intravenously. The fascia was then closed with 2-0 strata fix suture. The subcutaneous tissue was closed with 3-0 Vicryl. The subcuticular tissue was closed with 3-0 strata fix suture. The skin was then closed with Exofin skin glue. After the glue and dried, and Optifoam silver impregnated dressing was applied. The patient was then transferred to the recovery room in stable condition. The public aid eligibility assistant JEREMY Matthew was required due to the complexity of surgery, and the need for skilled surgical coordinator for positioning, draping, exposure, retraction, and closure of the wound.
--- NOTE | 2022-05-02 08:40 | XR ---
EXAMINATION TYPE: XR Hip Limited RT, FL guidance operating room DATE OF EXAM: 05/02/2022 Comparison: None Clinical History: 62-year-old male RIGHT ANTERIOR HIP Findings: Intraoperative fluoroscopy during right hip arthroplasty. FLUOROSCOPY Fluoroscopy time of 37 seconds was used during right hip total arthroplasty. 3 image/s document/s th e procedure. Impression: Intraoperative fluoroscopy as above.
[2022-05-02] MEDS ORDERED: NALOXONE 0.4 MG/ML 1 ML VIAL IV PRN (08:45)
[2022-05-02] MEDS ORDERED: ONDANSETRON 4 MG/2 ML VIAL IVP PRN (08:45)
[2022-05-02] MEDS ORDERED: HYDROcodone/APAP 5-325MG 1 EACH TAB PO PRN (08:45)
[2022-05-02] MEDS ORDERED: HYDROmorphone 1 MG/ML 1 ML SYRINGE IVP PRN (08:45)
[2022-05-02] MEDS ORDERED: HYDROcodone/APAP 7.5-325MG 1 EACH TAB PO PRN (08:45)
[2022-05-02 08:54] LABS: Glucose,Whole Blood 95 mg/dL (75-99)
--- NOTE | 2022-05-02 09:40 | XR ---
Limited right hip HISTORY: Post right hip arthroplasty Single frontal view of the right hip Patient is status post right hip arthroplasty. There is anatomic alignment. Lucency is present within the soft tissues. IMPRESSION: Orthopedic follow-up.
--- NOTE | 2022-05-02 14:34 | P.CONS ---
History of Present Illness - Reason for Consult Consult date: 05/02/22 Medical Management Requesting physician: Luis Preciado - History of Present Illness History of Presenting Illness: Patient is a very pleasant 62-year-old male with a past medical history complete heart block status post pacemaker placement, hypertension, hyperlipidemia, chronic kidney disease, diabetes mellitus, obstructive sleep apnea, BPH, asthma, and GERD. He is currently admitted under orthopedic surgery team status post right total hip arthroplasty secondary to severe osteoarthritis. We have been consulted for continued medical management throughout patient's hospitalization. Patient seen and fully evaluated at bedside upon returning from our. Patient appears to be doing well. He reports management of postoperative pain and denies having any complaints at this time. Patient is tolerating oral intake and denies any episodes of postoperative nausea or vomiting. Patient denies experiencing any numbness/tingling/focal weakness. He denies having a history of DVTs or PEs. Patient has yet to urinate in postoperative period, but reports he will continue to attempt. Patient is currently eating lunch time of assessment and visiting with his at bedside. He denies having any headache, lightheadedness, dizziness, chest pain, palpitations, or shortness of breath. Patient reports full resolution of numbness and tingling to lower extremities, moving right lower extremity without any difficulties and was able to ambulate from lower structure to bed upon arrival to room. Review of systems: Pertinent positives and negatives as discussed in HPI, a complete review of systems was performed and all other systems are negative. Physical exam: Vital signs reviewed and stable. General: Nontoxic, no distress and appears stated age. Derm: Skin warm and dry, normal coloration for ethnicity. Head: Atraumatic, normocephalic and symmetric. Eyes: EOMs intact, no lid lag, and anicteric sclera Mouth: no lip lesions, mucus membranes moist Cardiovascular: regular rate and rhythm with normal S1S2, no murmur, positive posterior tibial pulses bilaterally, and cap refill < 2 seconds. Lungs: Respirations even, regular, and unlabored on room air. Lungs CTA bilaterally, no rhonchi, no rales, no wheezing, and no accessory muscle usage. Abdominal: soft, nontender to palpation, no guarding, no appreciable organomegaly Ext: ROM intact. No gross muscle atrophy, no edema, no contractures. Dressing in place right hip, clean dry and intact ice pack in place. Neuro: Speech clear, face symmetrical and CN II-XII grossly intact with no noted focal neuro deficits Psych: Alert and oriented to person, place, time, and situation. Appropriate and pleasant affect. Assessment and Plan of Care: Severe osteoarthritis Status post right total hip arthroplasty -Management per primary admitting orthopedic surgery team including DVT prophylaxis, pain management, postoperative wound care, weightbearing, and PT/OT. -Currently DVT prophylaxis with aspirin 325 mg twice a day. Type 2 diabetes mellitus -Patient to continue daily medication regimen with Acarbose and has been placed on glycemic protocol with NovoLog sliding scale. Hypertension -Monitor vital signs and continue daily medication regimen with metoprolol. Hyperlipidemia -Continue daily medication regimen with atorvastatin. History of complete heart block status post pacemaker placement, tachyarrhythmia -Continue daily cardiac medication regimen including flecainide, atorvastatin, and metoprolol. Thank you for allowing us to participate in the care of this pleasant patient. Do not hesitate to contact us with questions. Someone can be reached from the [facility] hospitalist group all hours of the day at [phone] or via [employer]. I reviewed the documentation as provided by the SUSSY above, who is the original author of this note. I agree with the documented assessment and plan, with the following changes: none Past Medical History Past Medical History: Asthma, Diabetes Mellitus, GERD/Reflux, Hyperlipidemia, Hypertension, Osteoarthritis (OA), Prostate Disorder, Renal Disease, Sleep Apnea/CPAP/BIPAP Additional Past Medical History / Comment(s): Pacemaker - Medtronic; Tachycardia, PVC'S. "Issues with one kidney, Dr watching #'s, mild." Sl BPH. CPAP use. Arthritis back, hips, knees; bone spurs to S1-L2. History of Any Multi-Drug Resistant Organisms: None Reported Past Surgical History: Back Surgery, Hernia Repair, Orthopedic Surgery, Pacemaker, Tonsillectomy Additional Past Surgical History / Comment(s): Bilat ing hernia as child. LEFT KNEE scopes X2, RIGHT KNEE SCOPE, HIATAL HERNIA/ESOPHAGUS REPAIR, COLONOSCOPY, 2004 herniated disc L3-4, Pain procedures. Past Anesthesia/Blood Transfusion Reactions: Previous Problems w/ Anesthesia, Motion Sickness Additional Past Anesthesia/Blood Transfusion Reaction / Comm: Slow to awaken from Anesthesia, some combative x1. Type of Cardiac Device: Permanent Pacemaker Device Placement Date:: 2010 Smoking Status: Never smoker - Past Family History Father Family Medical History: Cancer Additional Family Medical History / Comment(s): anaplastic thyroid cancer Mother Family Medical History: Rheumatoid Arthritis (RA) Brother(s) Family Medical History: Deep Vein Thrombosis (DVT) Medications and Allergies Home Medications Medication Instructions Recorded Confirmed Type Metoprolol Tartrate [Lopressor] 25 mg PO BID 09/11/14 05/02/22 History Flecainide Acetate 50 mg PO TID 12/18/14 05/02/22 History Doxepin [SINEquan] 10 mg PO HS 09/15/21 05/02/22 History Fluticasone/Vilanterol [Breo 1 inhalation INHALATION QAM 09/15/21 05/02/22 History Ellipta 200-25 Mcg Inhaler] Rosuvastatin Calcium 10 mg PO HS 09/15/21 05/02/22 History Acarbose [Precose] 50 mg PO BID 04/27/22 05/02/22 History Ergocalciferol [Vitamin D2 (1250 1,250 mcg PO SA 04/27/22 05/02/22 History Mcg = 86534 Iu)] Multivit-Mins/Iron/Folic/Lycop 1 each PO DAILY 04/27/22 05/02/22 History [Centrum Men's Tablet] Naproxen Sodium [Aleve] 220 mg PO Q12HR PRN 04/27/22 05/02/22 History Tamsulosin HCl [Flomax] 0.4 mg PO HS 04/27/22 05/02/22 History Zypan (Digestive Enzyme) 7 tab PO TID 04/27/22 05/02/22 History Aspirin 325 mg PO BID #60 tab 05/02/22 Rx Celecoxib [CeleBREX] 200 mg PO DAILY PRN #30 cap 05/02/22 Rx HYDROcodone/APAP 7.5-325MG [[place] 1 - 2 each PO Q6HR PRN #32 tab 05/02/22 Rx 7.5-325] Ondansetron [Zofran] 4 mg PO Q6HR PRN #30 tab 05/02/22 Rx Sennosides-Docusate Sodium 1 tab PO BID PRN #60 tablet 05/02/22 Rx [Senokot-S] Venlafaxine HCl ER [Effexor Xr] 225 mg PO DAILY 05/02/22 05/02/22 History Allergies Allergy/AdvReac Type Severity Reaction Status Date / Time gluten Allergy Nausea & Verified 05/02/22 16:12 Vomiting & Diarrhea Physical Exam Osteopathic Statement: *. No significant issues noted on an osteopathic structural exam other than those noted in the History and Physical/Consult. Vitals: Vital Signs Temp Pulse Pulse Resp BP Pulse Ox 05/02/22 12:03 64 18 104/59 98 05/02/22 11:33 65 16 102/69 98 05/02/22 11:03 52 L 16 108/58 97 05/02/22 10:30 49 L 16 115/65 97 05/02/22 10:01 53 L 16 107/67 95 05/02/22 09:46 49 L 16 100/60 95 05/02/22 09:32 49 L 16 108/64 100 05/02/22 09:17 50 L 16 102/62 100 05/02/22 09:00 51 L 16 94/51 100 05/02/22 08:47 50 L 16 95/54 98 05/02/22 08:40 97.2 F L 53 L 12 90/54 95 05/02/22 05:55 97.2 F L 55 L 18 118/72 94 L Intake and Output 05/01/22 05/02/22 05/02/22 22:59 06:59 14:59 Intake Total 351 400 Output Total 300 Balance 351 100 Intake: IV 351 400 Output: Estimated Blood Loss 300 Other: Weight 109.8 kg
[2022-05-02] MEDS ORDERED: ZYPAN PO SCH (16:00)
[2022-05-02] MEDS: ACARBOSE 25 MG TAB PO SCH (17:29)
[2022-05-02] MEDS: FLECAINIDE 50 MG TAB PO SCH ×2 (17:29→22:04)
[2022-05-02] MEDS: SODIUM CHLORIDE 0.9% 1,000 ML IV SCH (17:32)
[2022-05-02] MEDS ORDERED: ATORVASTATIN 20 MG TAB PO SCH (21:00)
[2022-05-02] MEDS ORDERED: SENNOSIDES-DOCUSATE SODIUM 1 EACH TAB PO SCH (21:00)
[2022-05-02] MEDS ORDERED: DOXEPIN 10 MG CAP PO SCH (21:00)
[2022-05-02] MEDS ORDERED: TAMSULOSIN 0.4 MG CAP.ER.24H PO SCH (21:00)
[2022-05-02] MEDS: ASPIRIN 325 MG TAB PO SCH (21:03)
[2022-05-02] MEDS: METOPROLOL TARTRATE 25 MG TAB PO SCH (21:03)
[2022-05-02 21:15] LABS: Glucose,Whole Blood 100 mg/dL (75-99)
[2022-05-03] MEDS: SODIUM CHLORIDE 0.9% 1,000 ML IV SCH ×2 (01:23→09:51)
[2022-05-03] MEDS: LACTATED RINGERS 1,000 ML IV SCH (06:19)
[2022-05-03 06:53] LABS: Glucose,Whole Blood 113 mg/dL (75-99)
--- NOTE | 2022-05-03 07:36 | P.DS ---
Providers Expected date of discharge: 05/03/22 Attending physician: Luis Preciado Consults: 05/02/22 08:45 Consult Physician Routine Consulting Provider: Socorro Gatica Consult Reason/Comments: Medical management Do you want consulting provider notified?: Yes Primary care physician: Jaspreet Shaver - Discharge Diagnosis(es) (1) Primary localized osteoarthritis of right hip Current Visit: Yes Status: Acute (2) Status post total hip replacement, right Current Visit: Yes Status: Acute Hospital Course: This is a 62-year-old male with known history of degenerative arthritis of the right hip. The patient presents for evaluation. After discussion and consideration patient elects to proceed with total hip arthroplasty with direct anterior approach. The patient is seen preoperatively by primary care physician and cleared for surgery. Patient is admitted to [facility] on 05/02/2022 for total hip arthroplasty with direct anterior approach. The procedure is performed without complication or sequelae. The patient is doing well postoperatively. Labs and vital signs are stable on day of discharge. On day of discharge patient's hip incision is healing well. There is minimal erythema. There is no drainage noted at this time. There is minimal soft tissue swelling to the hip and thigh. Patient has full foot and ankle motion without difficulty or pain. Neurovascular status to the lower extremity is intact. Patient is discharged to home in good condition. Please see med rec for accurate list of home medications. Patient Condition at Discharge: Good Plan - Discharge Summary Discharge Rx Participant: No New Discharge Prescriptions: New Aspirin 325 mg PO BID #60 tab Ondansetron [Zofran] 4 mg PO Q6HR PRN #30 tab PRN Reason: Nausea Celecoxib [CeleBREX] 200 mg PO DAILY PRN #30 cap PRN Reason: Pain HYDROcodone/APAP 7.5-325MG [[place] 7.5-325] 1 - 2 each PO Q6HR PRN #32 tab PRN Reason: Pain Sennosides-Docusate Sodium [Senokot-S] 1 tab PO BID PRN #60 tablet PRN Reason: Constipation No Action Metoprolol Tartrate [Lopressor] 25 mg PO BID Flecainide Acetate 50 mg PO TID Rosuvastatin Calcium 10 mg PO HS Naproxen Sodium [Aleve] 220 mg PO Q12HR PRN PRN Reason: Pain Multivit-Mins/Iron/Folic/Lycop [Centrum Men's Tablet] 1 each PO DAILY Zypan (Digestive Enzyme) 7 tab PO TID Acarbose [Precose] 50 mg PO BID Doxepin [SINEquan] 10 mg PO HS Fluticasone/Vilanterol [Breo Ellipta 200-25 Mcg Inhaler] 1 inhalation INHALATION QAM Ergocalciferol [Vitamin D2 (1250 Mcg = 59562 Iu)] 1,250 mcg PO SA Tamsulosin HCl [Flomax] 0.4 mg PO HS Venlafaxine HCl ER [Effexor Xr] 225 mg PO DAILY Discharge Medication List Metoprolol Tartrate [Lopressor] 25 mg PO BID 09/11/14 [History] Flecainide Acetate 50 mg PO TID 12/18/14 [History] Doxepin [SINEquan] 10 mg PO HS 09/15/21 [History] Fluticasone/Vilanterol [Breo Ellipta 200-25 Mcg Inhaler] 1 inhalation INHALATION QAM 09/15/21 [History] Rosuvastatin Calcium 10 mg PO HS 09/15/21 [History] Acarbose [Precose] 50 mg PO BID 04/27/22 [History] Ergocalciferol [Vitamin D2 (1250 Mcg = 86549 Iu)] 1,250 mcg PO SA 04/27/22 [History] Multivit-Mins/Iron/Folic/Lycop [Centrum Men's Tablet] 1 each PO DAILY 04/27/22 [History] Naproxen Sodium [Aleve] 220 mg PO Q12HR PRN 04/27/22 [History] Tamsulosin HCl [Flomax] 0.4 mg PO HS 04/27/22 [History] Zypan (Digestive Enzyme) 7 tab PO TID 04/27/22 [History] Aspirin 325 mg PO BID #60 tab 05/02/22 [Rx] Celecoxib [CeleBREX] 200 mg PO DAILY PRN #30 cap 05/02/22 [Rx] HYDROcodone/APAP 7.5-325MG [[place] 7.5-325] 1 - 2 each PO Q6HR PRN #32 tab 05/02/22 [Rx] Ondansetron [Zofran] 4 mg PO Q6HR PRN #30 tab 05/02/22 [Rx] Sennosides-Docusate Sodium [Senokot-S] 1 tab PO BID PRN #60 tablet 05/02/22 [Rx] Venlafaxine HCl ER [Effexor Xr] 225 mg PO DAILY 05/02/22 [History] Follow up Appointment(s)/Referral(s): Luis Preciado DO [Doctor of Osteopathic Medicine] - 2 Weeks Activity/Diet/Wound Care/Special Instructions: 1. Keep Optifoam dressing over the right hip intact over the next 7 days 2. Patient may shower with dressing intact over the surgical site of the right hip 3. Patient may shower without a dressing intact after 7 days if his incision site remains clean and dry 4. Weight-bear as tolerated right lower extremity with a walker 5. Take medications as prescribed 6. Any questions or concerns patient may contact [facility] at [phone] Discharge Disposition: HOME SELF-CARE
[2022-05-03 07:54] VITALS: BP 141/68; PULSE 63; TEMP 98.8
[2022-05-03] MEDS ORDERED: SYMBICORT 160-4.5 MCG INHALER INHALATION SCH (08:00)
[2022-05-03] MEDS: FLECAINIDE 50 MG TAB PO SCH (08:44)
[2022-05-03] MEDS: ASPIRIN 325 MG TAB PO SCH (08:44)
[2022-05-03] MEDS: ACARBOSE 25 MG TAB PO SCH (08:44)
[2022-05-03] MEDS: METOPROLOL TARTRATE 25 MG TAB PO SCH (08:44)
[2022-05-03] MEDS ORDERED: VENLAFAXINE HCL ER 75 MG CAP PO SCH (09:00)
[2022-05-03] MEDS ORDERED: MULTIVITAMINS, THERA 1 EACH TAB PO SCH (09:00)
[2022-05-03 09:51] VITALS: RESP 16
[2022-05-03 10:02] LABS: Basophils # (A) 0.02 X 10*3/uL (0.00-0.10); Basophils % (A) 0.2 %; Eosinophils # (A) 0.02 X 10*3/uL (0.04-0.35); Eosinophils % (A) 0.2 %; HCT 44.4 % (39.6-50.0); HGB 14.6 g/dL (13.0-17.0); Immature Grans, Automated 0.3 %; Lymphocytes # (A) 2.02 X 10*3/uL (0.90-5.00); Lymphocytes % (A) 16.4 %; MCH 30.2 pg (27.0-32.0); MCHC 32.9 g/dL (32.0-37.0); MCV 91.9 fL (80.0-97.0); Mean Platelet Volume 10.2 fL (9.5-12.2); Monocytes # (A) 1.15 X 10*3/uL (0.20-1.00); Monocytes % (A) 9.3 %; NRBC Per 100 WBC 0 /100 WBCS (0.0-0.0); Neutrophils # (A) 9.09 X 10*3/uL (1.80-7.70); Neutrophils % (A) 73.6 %; Platelet Count 197 X 10*3/uL (140-440); RBC 4.83 X 10*6/uL (4.40-5.60); RDW 13.2 % (11.5-14.5); WBC 12.34 X 10*3/uL (4.50-10.00)
[2022-05-03 10:16] LABS: African American GFR (CKD) 66.8 (60.0-200.0); Albumin 4.2 g/dL (3.8-4.9); Anion Gap 10.1 mmol/L (10.00-18.00); BUN/Creat Ratio 16.46 Ratio (12.00-20.00); Blood Urea Nitrogen 21.4 mg/dL (9.0-27.0); Calcium 9.3 mg/dL (8.7-10.3); Carbon Dioxide 24.9 mmol/L (20.0-27.5); Globulin 2.1 g/dL (1.6-3.3); Non-African American GFR(CKD) 57.7 (60.0-200.0); Potassium 5.1 mmol/L (3.5-5.5); Total Bilirubin 0.8 mg/dL (0.30-1.20); Total Protein 6.3 g/dL (6.2-8.2)
[2022-05-03 11:46] LABS: Glucose,Whole Blood 87 mg/dL (75-99)
--- NOTE | 2022-05-03 14:03 | P.PN ---
Subjective Progress Note Date: 05/03/22 History of Presenting Illness: Patient is a very pleasant 62-year-old male with a past medical history complete heart block status post pacemaker placement, hypertension, hyperlipidemia, chronic kidney disease, diabetes mellitus, obstructive sleep apnea, BPH, asthma, and GERD. He is currently admitted under orthopedic surgery team status post right total hip arthroplasty secondary to severe osteoarthritis. We have been consulted for continued medical management throughout patient's hospitalization. Patient seen and fully evaluated at bedside upon returning from our. Patient appears to be doing well. He reports management of postoperative pain and denies having any complaints at this time. Patient is tolerating oral intake and denies any episodes of postoperative nausea or vomiting. Patient denies experiencing any numbness/tingling/focal weakness. He denies having a history of DVTs or PEs. Patient has yet to urinate in postoperative period, but reports he will continue to attempt. Patient is currently eating lunch time of assessment and visiting with his at bedside. He denies having any headache, lightheadedness, dizziness, chest pain, palpitations, or shortness of breath. Patient reports full resolution of numbness and tingling to lower extremities, moving right lower extremity without any difficulties and was able to ambulate from lower structure to bed upon arrival to room. Interval history: Patient was seen and examined at the bedside. He denies any chest pain or shortness of breath. Patient is being discharged today by primary orthopedic team. Physical exam: Vital signs reviewed and stable. General: Nontoxic, no distress and appears stated age. Derm: Skin warm and dry, normal coloration for ethnicity. Head: Atraumatic, normocephalic and symmetric. Eyes: EOMs intact, no lid lag, and anicteric sclera Mouth: no lip lesions, mucus membranes moist Cardiovascular: regular rate and rhythm with normal S1S2, no murmur, positive posterior tibial pulses bilaterally, and cap refill < 2 seconds. Lungs: Respirations even, regular, and unlabored on room air. Lungs CTA bilaterally, no rhonchi, no rales, no wheezing, and no accessory muscle usage. Abdominal: soft, nontender to palpation, no guarding, no appreciable organomegaly Ext: ROM intact. No gross muscle atrophy, no edema, no contractures. Dressing in place right hip, clean dry and intact ice pack in place. Neuro: Speech clear, face symmetrical and CN II-XII grossly intact with no noted focal neuro deficits Psych: Alert and oriented to person, place, time, and situation. Appropriate and pleasant affect. Assessment and Plan of Care: Severe osteoarthritis Status post right total hip arthroplasty -Management per primary admitting orthopedic surgery team including DVT prophylaxis, pain management, postoperative wound care, weightbearing, and PT/OT. -Currently DVT prophylaxis with aspirin 325 mg twice a day. Type 2 diabetes mellitus -Patient to continue daily medication regimen with Acarbose and has been placed on glycemic protocol with NovoLog sliding scale. Hypertension -Monitor vital signs and continue daily medication regimen with metoprolol. Hyperlipidemia -Continue daily medication regimen with atorvastatin. History of complete heart block status post pacemaker placement, tachyarrhythmia -Continue daily cardiac medication regimen including flecainide, atorvastatin, and metoprolol. Objective - Vital Signs Vital signs: Vital Signs Temp 98.8 F 05/03/22 07:53 Pulse 63 05/03/22 07:53 Resp 16 05/03/22 09:48 BP 141/68 05/03/22 07:53 Pulse Ox 97 05/03/22 07:53 FiO2 Intake & Output 05/02/22 05/03/22 05/03/22 18:59 06:59 18:59 Intake Total 400 925 Output Total 300 Balance 100 925 Weight 109.8 kg Intake: IV 400 Intake, IV Titration 925 Amount Sodium Chloride 0.9% 1, 825 000 ml @ 75 mls/hr IV . [id number] AMY Rx#:[id number] ceFAZolin 2 gm In Sodium 100 Chloride 0.9% 50 ml @ 100 mls/hr IVPB Q8H AMY Rx#: [id number] Output: Estimated Blood Loss 300 Other: Voiding Method Toilet Toilet Toilet # Voids 1 3 - Labs CBC & Chem 7: 05/03/22 04:45 05/03/22 04:45 Labs: Abnormal Lab Results - Last 24 Hours (Table) 05/02/22 05/03/22 05/03/22 Range/Units 21:13 04:45 04:45 WBC 12.34 H (4.50-10.00) X 10*3/uL Neutrophils # 9.09 H (1.80-7.70) X 10*3/uL Monocytes # 1.15 H (0.20-1.00) X 10*3/uL Eosinophils # 0.02 L (0.04-0.35) X 10*3/uL Est GFR (CKD-EPI)NonAf 57.7 L (60.0-200.0) Glucose 120 H (70-110) mg/dL POC Glucose (mg/dL) 100 H (75-99) mg/dL AST 61 H (14-35) U/L 05/03/22 Range/Units 06:52 WBC (4.50-10.00) X 10*3/uL Neutrophils # (1.80-7.70) X 10*3/uL Monocytes # (0.20-1.00) X 10*3/uL Eosinophils # (0.04-0.35) X 10*3/uL Est GFR (CKD-EPI)NonAf (60.0-200.0) Glucose (70-110) mg/dL POC Glucose (mg/dL) 113 H (75-99) mg/dL AST (14-35) U/L
[2022-05-06] MEDS ORDERED: ERGOCALCIFEROL 1,250 MCG (50,000 IU) CAPSULE PO SCH (09:00)
== END 2022-05-03 12:54 | disposition home or self-care (01) ==
LOC: OR 05:33 → 4SSUR 08:44 → OR 05-03 12:54
PROVIDERS: ATTEND Orthopaedic Surgery
DX: M16.11 Unilateral primary osteoarthritis, right hip (principal); E11.22 Type 2 diabetes mellitus with diabetic chronic kidney disease; E78.5 Hyperlipidemia, unspecified; G89.18 Other acute postprocedural pain; G47.33 Obstructive sleep apnea (adult) (pediatric); I12.9 Hypertensive chronic kidney disease with stage 1 through stage 4 chronic kidney disease, or unspecified chronic kidney disease; J45.909 Unspecified asthma, uncomplicated; K21.9 Gastro-esophageal reflux disease without esophagitis; N40.0 Benign prostatic hyperplasia without lower urinary tract symptoms; Z79.82 Long term (current) use of aspirin; Z95.0 Presence of cardiac pacemaker; Z79.1 Long term (current) use of non-steroidal anti-inflammatories (NSAID)
CPT/HCPCS: 27130; 97116; 97161; 86900; 86901; 80053; 85025; 86850; 88300; 73501; C1776; J1100; J0690 ×2; J2405; J2795

== ENCOUNTER → 2022-05-31 | Outpatient (CLI) | payer BC ==
[2022-05-31 17:10] LABS: African American GFR (CKD) 66.8 (60.0-200.0); Anion Gap 9.9 mmol/L (10.00-18.00); Blood Urea Nitrogen 20.7 mg/dL (9.0-27.0); Carbon Dioxide 25.1 mmol/L (20.0-27.5); Non-African American GFR(CKD) 57.7 (60.0-200.0)
[2022-05-31 17:27] LABS: HCT 44.7 % (39.6-50.0); HGB 14.2 g/dL (13.0-17.0); MCH 29.4 pg (27.0-32.0); MCHC 31.8 g/dL (32.0-37.0); MCV 92.5 fL (80.0-97.0); Mean Platelet Volume 10.2 fL (9.5-12.2); NRBC Per 100 WBC 0 /100 WBCS (0.0-0.0); Platelet Count 223 X 10*3/uL (140-440); RBC 4.83 X 10*6/uL (4.40-5.60); RDW 13.5 % (11.5-14.5); WBC 5.86 X 10*3/uL (4.50-10.00)
== END | disposition home or self-care (01) ==
LOC: LABPAT 09:51
PROVIDERS: ATTEND Internal Medicine Clinical Cardiac Electrophysiology
DX: Z01.812 Encounter for preprocedural laboratory examination (principal); R55 Syncope and collapse
CPT/HCPCS: 80051; 82565; 84520; 85027

== ENCOUNTER 2022-06-05 12:26 | Day surgery (SDC) | payer BC ==
[2022-06-01 13:09] VITALS: BMI 32.5
[~2022-06-05 12:26] MED LIST changes: -ACETAMINOPHEN TAB 500 MG TAB PO PRN; -GABAPENTIN 300 MG CAP PO PRN; -MELOXICAM 7.5 MG TAB PO PRN; +SODIUM CHLORIDE 0.9% 1,000 ML IV SCH; -TRANEXAMIC ACID IN NACL,ISO-OS 1,000 MG in SALINE 1 100ML.BAG IVPB PRN; +ceFAZolin 1 GM in SODIUM CHLORIDE 0.9% IRRIG BTL 250 ML IRRIGATION PRN
[2022-06-05] MEDS ORDERED: SODIUM CHLORIDE 0.9% 500 ML 500 ML IV ONE (12:40)
[2022-06-05 13:00] LABS: Glucose,Whole Blood 93 mg/dL (70-110)
[2022-06-05 14:42] VITALS: RESP 16; TEMP 98.2
[2022-06-05] MEDS ORDERED: fentaNYL (PF) 50 MCG/ML 2 ML AMP ONE (15:40)
[2022-06-05] MEDS ORDERED: fentaNYL (PF) 50 MCG/ML 2 ML AMP IV ONE (15:51)
[2022-06-05] MEDS: MIDAZOLAM 2 MG/2 ML VIAL IV ONE ×2 (15:51→16:04)
[2022-06-05] MEDS: LIDOCAINE 1% INJ 10MG/ML (30 ML VIAL-PF) SQ ONE ×2 (16:02→16:10)
[2022-06-05] MEDS ORDERED: ACETAMINOPHEN TAB 325 MG TAB PO PRN (16:44)
--- NOTE | 2022-06-05 17:12 | P.EPPROC ---
- EP Procedure Note Electrophysiology Procedure Note: Diagnosis Symptomatic bradycardia, status post dual-chamber pacemaker Device at [facility] Procedure Dual-chamber pacemaker generator twisting frame changer fluoroscopy Details Patient was brought to the EP lab in a fasting state. Written informed consent was obtained prior to the procedure. Conscious sedation provided. By EP lab* IV antibiotics administered. Local anesthesia administered. A 4 cm incision made in the pectoral area. Device was explanted Atrial lead position the right atrial appendage, stable Pacing threshold 1.4 V at 0.4 ms, pacing impedance of 418 ohms and P waves 2.25 ohms . Chronic position stable on fluoroscopy no fractures or breaks RV lead position in the RV apex. Chronic position stable on fluoroscopy no fractures or breaks Pacing threshold 1.5 V at 0.4 ms pacing impedance of 399 ohms R waves 6.5 mV Both Medtronic leads Device scrum product owner: Medtronic JOSELUIS XT [id number] 50 Dual-chamber pacemaker device connected to the leads and placed in the subfascial pocket Patient tolerated the procedure well without acute complications
[2022-06-05 19:36] VITALS: BP 123/59; PULSE 52
== END 2022-06-05 18:59 | disposition home or self-care (01) ==
LOC: CATHEP 12:26
PROVIDERS: ATTEND Internal Medicine Clinical Cardiac Electrophysiology
DX: Z45.010 Encounter for checking and testing of cardiac pacemaker pulse generator [battery] (principal); I44.2 Atrioventricular block, complete; I10 Essential (primary) hypertension; E78.5 Hyperlipidemia, unspecified; E11.9 Type 2 diabetes mellitus without complications; I47.1 Supraventricular tachycardia; J45.40 Moderate persistent asthma, uncomplicated; E78.00 Pure hypercholesterolemia, unspecified; Z20.822 Contact with and (suspected) exposure to COVID-19; Z79.899 Other long term (current) drug therapy; Z79.51 Long term (current) use of inhaled steroids; Z96.641 Presence of right artificial hip joint
CPT/HCPCS: 33228; 87635; C1785; J2250; J0690; J2001; J3010

== ENCOUNTER 2022-12-11 01:44 | Emergency (ER) | payer BC ==
[2022-12-11 01:59] VITALS: TEMP 97.9
[2022-12-11 02:00] LABS: Glucose,Whole Blood 129 mg/dL (70-110)
[2022-12-11 02:25] LABS: Basophils # (A) 0.1 k/uL (0-0.2); Basophils % (A) 1 %; Eosinophils # (A) 0.2 k/uL (0-0.7); Eosinophils % (A) 1 %; HCT 51.2 % (39.0-53.0); HGB 17.2 gm/dL (13.0-17.5); Lymphocytes # (A) 2.9 k/uL (1.0-4.8); Lymphocytes % (A) 25 %; MCH 29.8 pg (25.0-35.0); MCHC 33.5 g/dL (31.0-37.0); MCV 88.9 fL (80.0-100.0); Mean Platelet Volume 7.5; Monocytes # (A) 0.8 k/uL (0-1.0); Monocytes % (A) 7 %; Neutrophils # (A) 7.3 k/uL (1.3-7.7); Neutrophils % (A) 64 %; Platelet Count 243 k/uL (150-450); RBC 5.76 m/uL (4.30-5.90); RDW 13.8 % (11.5-15.5); WBC 11.4 k/uL (3.8-10.6)
[2022-12-11 02:39] LABS: Albumin 4.6 g/dL (3.5-5.0); Calcium 9.3 mg/dL (8.4-10.2); Potassium 3.9 mmol/L (3.5-5.1); Total Bilirubin 1.6 mg/dL (0.2-1.3); Total Protein 7.6 g/dL (6.3-8.2)
[2022-12-11] MEDS ORDERED: SODIUM CHLORIDE 0.9% 1,000 ML IV ONE (02:41)
[2022-12-11] MEDS ORDERED: ONDANSETRON 4 MG/2 ML VIAL IVP STA (02:41)
[2022-12-11] MEDS ORDERED: FAMOTIDINE 20 MG/2 ML VIAL IV STA (02:42)
--- NOTE | 2022-12-11 02:47 | ED ---
Nausea/Vomiting/Diarrhea HPI - General Chief complaint: Abdominal Pain Stated complaint: Abdominal Pain, Vomiting, Diarrhea Time Seen by Provider: 12/11/22 02:11 Source: patient Mode of arrival: wheelchair Limitations: no limitations - History of Present Illness Initial comments: 's patient is 62-year-old man who presents to have evaluation of nausea, v omiting, diarrhea. The patient began having nausea night. Sunday he had onset of vomiting. He has continued to have some vomiting and then subsequently developed diarrhea over the weekend. Today he has had 6 bowel movements, no blood or dark tarry material. He has had 2 episodes of vomiting, no coffee-ground material or blood. He does have a little abdominal discomfort, mainly epigastric that he describes as a feeling like things are pushed together. No fever or chills. No upper respiratory or chest symptoms. No symptoms into the scrotum or testicles. No leg pains or swelling. MD complaint: nausea, vomiting, diarrhea, abdominal pain Onset/Timin -: days(s) Description of Vomiting: food contents Description of Diarrhea: water Location: epigastric Radiation: none Severity: mild Quality: dull Consistency: intermittent Improves with: none Worsens with: none Associated Symptoms: nausea/vomiting - Related Data Home Medications Medication Instructions Recorded Confirmed Metoprolol Tartrate [Lopressor] 25 mg PO BID 09/11/14 06/05/22 Flecainide Acetate 50 mg PO TID 12/18/14 06/05/22 Doxepin [SINEquan] 10 mg PO 09/15/21 06/05/22 Fluticasone/Vilanterol [Breo 1 inhalation INHALATION QAM 09/15/21 06/05/22 Ellipta 200-25 Mcg Inhaler] Rosuvastatin Calcium 10 mg PO HS 09/15/21 06/05/22 Acarbose [Precose] 50 mg PO BID 04/27/22 06/05/22 Ergocalciferol [Vitamin D2 (1250 1,250 mcg PO SA 04/27/22 06/05/22 Mcg = 61332 Iu)] Multivit-Mins/Iron/Folic/Lycop 1 each PO DAILY 04/27/22 06/05/22 [Centrum Men's Tablet] Tamsulosin HCl [Flomax] 0.4 mg PO HS 04/27/22 06/05/22 Zypan (Digestive Enzyme) 7 tab PO TID 04/27/22 06/05/22 Venlafaxine HCl ER [Effexor XR] 225 mg PO DAILY 05/02/22 06/05/22 Previous Rx's Medication Instructions Recorded Ondansetron Odt [Zofran ODT] 4 mg PO Q8HR PRN #10 tab 12/11/22 Allergies Allergy/AdvReac Type Severity Reaction Status Date / Time gluten Allergy Nausea & Verified 06/05/22 12:42 Vomiting & Diarrhea Review of Systems ROS Statement: Those systems with pertinent positive or pertinent negative responses have been documented in the HPI. ROS Other: All systems not noted in ROS Statement are negative. Constitutional: Denies: fever, chills Respiratory: Denies: cough, dyspnea Cardiovascular: Denies: chest pain, palpitations, edema Gastrointestinal: Reports: abdominal pain, nausea, vomiting, diarrhea. Denies: constipation, melena, hematochezia Genitourinary: Denies: dysuria, hematuria Musculoskeletal: Denies: back pain Skin: Denies: rash Neurological: Denies: headache Past Medical History Past Medical History: Asthma, Diabetes Mellitus, Hypertension, Osteoarthritis (OA), Sleep Apnea/CPAP/BIPAP Additional Past Medical History / Comment(s): Tachycardia, PVC'S. "Issues with one kidney, Dr watching #'s." CPAP use. Arthritis in back, hips and knees, bone spurs to L2-L5. History of Any Multi-Drug Resistant Organisms: None Reported Past Surgical History: Back Surgery, Orthopedic Surgery, Pacemaker Additional Past Surgical History / Comment(s): LEFT KNEE SURGERY X2, RIGHTT KNEE SCOPE, HIATAL HERNIA/ESOPHAGUS REPAIR, COLONOSCOPY. Past Anesthesia/Blood Transfusion Reactions: Previous Problems w/ Anesthesia, Motion Sickness Additional Past Anesthesia/Blood Transfusion Reaction / Comment(s): SLOW TO COME OUT OF ANESTHESIA. Type of Cardiac Device: Permanent Pacemaker Device Placement Date:: 2010 Past Psychological History: Depression Smoking Status: Never smoker - Past Family History Father Family Medical History: Cancer Mother Family Medical History: Rheumatoid Arthritis (RA) Brother(s) Family Medical History: Deep Vein Thrombosis (DVT) General Exam Limitations: no limitations General appearance: alert, in no apparent distress Head exam: Present: atraumatic, normocephalic Eye exam: Present: normal appearance. Absent: scleral icterus, conjunctival injection Respiratory exam: Present: normal lung sounds bilaterally. Absent: respiratory distress, wheezes, rales, rhonchi, stridor Cardiovascular Exam: Present: regular rate, normal rhythm, normal heart sounds. Absent: systolic murmur, diastolic murmur, rubs, gallop GI/Abdominal exam: Present: soft. Absent: distended, tenderness, guarding, rebound, rigid, mass Extremities exam: Present: normal inspection, normal capillary refill. Absent: pedal edema, calf tenderness Back exam: Present: normal inspection. Absent: CVA tenderness (R), CVA tenderness (L) Neurological exam: Present: alert Skin exam: Present: warm, dry, intact, normal color. Absent: rash Course Vital Signs 12/11/22 12/11/22 01:46 04:29 Temperature 97.9 F Pulse Rate 81 74 Respiratory 24 15 Rate Blood Pressure 141/85 129/74 O2 Sat by Pulse 97 100 Oximetry Medical Decision Making - Medical Decision Making This patient is 62-year-old man presenting to have evaluation of nausea, vomiting, diarrhea. The exam is not consistent with surgical cause patient's symptoms. The workup here does not show severe dehydration requiring admission. The patient does feel better after fluids and anti-medic, and would like to go home. We discussed appropriate further care and follow-up as well as return parameters. Was pt. sent in by a medical professional or institution? @ -no Did you speak to anyone other than the patient for history? @ -[No Did you review nursing and triage notes? @ -[agree Were old charts reviewed? @ -[yes Differential Diagnosis? @ -[Differential Dizziness: Differential Abdominal Pain Women: Appendicitis, Cholecystitis, diverticulosis, ischemic bowel, pancreatitis, hepatitis, UTI, gastroenteritis, AAA, incarcerated hernia, bowel obstruction, constipation, inflammatory bowel, hepatitis, peptic ulcer disease, splenic infarction, perforated viscus, vulvitis, ovarian torsion, PID, kidney stone, placenta abruption, this is not meant to be an all-inclusive list EKG interpreted by me (3pts min.)? @ -[See chart X-rays interpreted by me (1pt min.)? @ - CT interpreted by me (1pt min.)? @ - U/S interpreted by me (1pt. min.)? @ -[none] What testing was considered but not performed? (CT, X-rays, U/S, labs)? Why? @ [CT abdomen and pelvis considered, but patient responded well to treatment and has no abdominal tenderness, this will be deferred What meds were considered but not given? Why? @ -[none] Did you discuss the management of the patient with other professionals? @ -[No Did you reconcile home meds? @ -[none] Was smoking cessation discussed for >3mins.? @ -[none] Was critical care preformed (if so, how long)? @ -[none] Were there social determinants of health that impacted care today? How? (Homelessness, low income, unemployed, alcoholism, drug addiction, transportation, low edu. Level, literacy, decrease access to med. care, prison, rehab)? @ -[No Was there de-escalation of care discussed even if they declined? (Discuss DNR or withdrawal of care, Hospice)? @ -[No What co-morbidities impacted this encounter? (DM, HTN, Smoking, COPD, CAD, Cancer, CVA, Hep., AIDS, mental health diagnosis, sleep apnea, morbid obesity)? @ -[None Was patient admitted / discharged? @ -[Discharged Undiagnosed new problem with uncertain prognosis? @ -[none] Drug Therapy requiring intensive monitoring for toxicity (Heparin, Nitro, Insulin, Cardizem)? @ -[none] Were any procedures done? @ -[none] Diagnosis/symptom? @ -[1. Acute gastroenteritis Acute, or Chronic, or Acute on Chronic? @ -[Acute Uncomplicated (without systemic symptoms) or Complicated (systemic symptoms)? @ -[Uncomplicated Side effects of treatment? @ -[none] Exacerbation, Progression, or Severe Exacerbation] @ -[no] Poses a threat to life or bodily function? @ -[no] - Lab Data Result diagrams: 12/11/22 01:58 12/11/22 01:58 Lab Results 12/11/22 12/11/22 12/11/22 Range/Units 01:58 01:58 01:58 WBC 11.4 H (3.8-10.6) k/uL RBC 5.76 (4.30-5.90) m/uL Hgb 17.2 (13.0-17.5) gm/dL Hct 51.2 (39.0-53.0) % MCV 88.9 (80.0-100.0) fL MCH 29.8 (25.0-35.0) pg MCHC 33.5 (31.0-37.0) g/dL RDW 13.8 (11.5-15.5) % Plt Count 243 (150-450) k/uL MPV 7.5 Neutrophils % 64 % Lymphocytes % 25 % Monocytes % 7 % Eosinophils % 1 % Basophils % 1 % Neutrophils # 7.3 (1.3-7.7) k/uL Lymphocytes # 2.9 (1.0-4.8) k/uL Monocytes # 0.8 (0-1.0) k/uL Eosinophils # 0.2 (0-0.7) k/uL Basophils # 0.1 (0-0.2) k/uL Sodium 136 L (137-145) mmol/L Potassium 3.9 (3.5-5.1) mmol/L Chloride 101 (98-107) mmol/L Carbon Dioxide 25 (22-30) mmol/L Anion Gap 10 mmol/L BUN 21 H (9-20) mg/dL Creatinine 1.42 H (0.66-1.25) mg/dL Est GFR (CKD-EPI)AfAm 60 (>60 ml/min/1.73 sqM) Est GFR (CKD-EPI)NonAf 52 (>60 ml/min/1.73 sqM) Glucose 137 H (74-99) mg/dL POC Glucose (mg/dL) 129 H (70-110) mg/dL POC Glu [employer] Developer ID [place] Calcium 9.3 (8.4-10.2) mg/dL Total Bilirubin 1.6 H (0.2-1.3) mg/dL AST 28 (17-59) U/L ALT 24 (4-49) U/L Alkaline Phosphatase 71 (38-126) U/L Troponin I (0.000-0.034) ng/mL Total Protein 7.6 (6.3-8.2) g/dL Albumin 4.6 (3.5-5.0) g/dL Amylase 55 (30-110) U/L Lipase 94 (23-300) U/L Influenza Type A (PCR) (Not Detectd) Influenza Type B (PCR) (Not Detectd) RSV (PCR) (Not Detectd) SARS-CoV-2 (PCR) (Not Detectd) 12/11/22 12/11/22 Range/Units 01:58 01:58 WBC (3.8-10.6) k/uL RBC (4.30-5.90) m/uL Hgb (13.0-17.5) gm/dL Hct (39.0-53.0) % MCV (80.0-100.0) fL MCH (25.0-35.0) pg MCHC (31.0-37.0) g/dL RDW (11.5-15.5) % Plt Count (150-450) k/uL MPV Neutrophils % % Lymphocytes % % Monocytes % % Eosinophils % % Basophils % % Neutrophils # (1.3-7.7) k/uL Lymphocytes # (1.0-4.8) k/uL Monocytes # (0-1.0) k/uL Eosinophils # (0-0.7) k/uL Basophils # (0-0.2) k/uL Sodium (137-145) mmol/L Potassium (3.5-5.1) mmol/L Chloride (98-107) mmol/L Carbon Dioxide (22-30) mmol/L Anion Gap mmol/L BUN (9-20) mg/dL Creatinine (0.66-1.25) mg/dL Est GFR (CKD-EPI)AfAm (>60 ml/min/1.73 sqM) Est GFR (CKD-EPI)NonAf (>60 ml/min/1.73 sqM) Glucose (74-99) mg/dL POC Glucose (mg/dL) (70-110) mg/dL POC Glu Data Services Developer ID Calcium (8.4-10.2) mg/dL Total Bilirubin (0.2-1.3) mg/dL AST (17-59) U/L ALT (4-49) U/L Alkaline Phosphatase (38-126) U/L Troponin I <0.012 (0.000-0.034) ng/mL Total Protein (6.3-8.2) g/dL Albumin (3.5-5.0) g/dL Amylase (30-110) U/L Lipase (23-300) U/L Influenza Type A (PCR) Not Detected (Not Detectd) Influenza Type B (PCR) Not Detected (Not Detectd) RSV (PCR) Not Detected (Not Detectd) SARS-CoV-2 (PCR) Not Detected (Not Detectd) - EKG Data -: EKG Interpreted by Me EKG shows normal: axis (Normal), intervals (Prolonged QRS complex, other intervals normal), QRS complexes (Presented nonspecific intraventricular conduction delay) Rate: normal (Rate 70 bpm) When compared to previous EKG there are: other (Similar to the comparison ECG) Interpretation: nonspecific ST-T wave changes, other (Rhythm is paced, rate 70 bpm.) Disposition Clinical Impression: Gastroenteritis Disposition: HOME SELF-CARE Condition: Good Prescriptions: Ondansetron Odt [Zofran ODT] 4 mg PO Q8HR PRN #10 tab PRN Reason: Nausea Is patient prescribed a controlled substance at d/c from ED?: No Referrals: Nonstaff,Physician [REFERRING] - 1-2 days
[2022-12-11 04:30] VITALS: BP 129/74; PULSE 74; RESP 15
== END 2022-12-11 04:39 | disposition home or self-care (01) ==
LOC: EC 01:44
DX: K52.9 Noninfective gastroenteritis and colitis, unspecified (principal); E11.9 Type 2 diabetes mellitus without complications; J45.909 Unspecified asthma, uncomplicated; I10 Essential (primary) hypertension; M19.90 Unspecified osteoarthritis, unspecified site; F32.A Depression, unspecified; Z91.018 Allergy to other foods; Z79.899 Other long term (current) drug therapy; Z20.822 Contact with and (suspected) exposure to COVID-19
CPT/HCPCS: 36415; 80053; 82150; 83690; 84484; 85025; 87636; 99284; 96374; 96375; 96361; J2405

== ENCOUNTER → 2023-12-06 | Outpatient (CLI) | payer BC ==
--- NOTE | 2023-12-06 18:13 | P.SLEEP ---
History of Present Illness DATE: 12/06/2023 CONSULTATION/NEW PATIENT EVALUATION HISTORY OF PRESENT ILLNESS/SLEEP-WAKE EVALUATION: 63 year old gentleman had been evaluated in the sleep center for obstructive sleep apnea hypopnea syndrome. Patient had history of obstructive sleep apnea hypopnea syndrome for about 20 years, last titration done in our institution in 2014. Patient continued to use his CPAP equipment every night. I checked his CPAP unit range over the pressure 8-15, average 14.4 cm of water. Usage is 100% of nights, average 7.7 hours per night. Leak is 12 L/m which is acceptable. Apnea- hypopnea index increased to 12.2. SLEEP SCHEDULE: Usually sleep schedule from 11 PM to 6:30 AM on weekdays and from midnight until 6:307 AM on weekend. FALLING ASLEEP: No problems with falling asleep. DURING SLEEP: Patient may wake up from sleep multiple times with up to 3 episodes of nocturia, dry mouth, episodes of palpitations, sweating, restless leg symptoms. No history of hypnogogical hallucinations, sleep paralysis, or cataplexy. DURING THE DAY/WAKE STATE: In the morning patient wake up tired, falling asleep during the day. Dougherty sleepiness scale is increased to 12. Usually patient doesn't take naps. PAST MEDICAL HISTORY: Asthma, diabetes mellitus, depression, supraventricular tachycardia, BPH. PAST SURGICAL HISTORY: Per minute pacemaker insertion, right hip replacement, left knee surgery. MEDICATIONS: Doxepin 10 mg at bedtime, flecainide 50 mg 3 times a day, Flomax 0.4 mg once a day, metoprolol 25 mg twice a day, rosuvastatin 10 mg once a day, venlafaxine 225 mg twice a day. SOCIAL HISTORY: Negative for smoking or using alcohol. FAMILY HISTORY: Hypertension, cancer, thyroid problems, diabetes. REVIEW OF SYSTEMS: Snoring, awakenings from sleep. No fevers. No double vision. No recent chest pain. No shortness of breath. No abdominal pain. No bleeding episodes. No blood in urine. No seizure episodes. PHYSICAL EXAMINATION: GENERAL: A pleasant patient without any distress. VITAL SIGNS: BP 146/82 , HR 78 , RR 16 , weight 257 pounds, height 5 foot 11.5 inches, body mass index 35.3 . HEENT: PERRLA, EOMI. Evaluation of oropharynx showed tongue protrudes midline, low position of soft palate Mallampati 4, retrognathia 2 mm. NECK: Supple. No JVD. Thyroid is not palpable. 19 inches in circumference. LUNGS: Clear to percussion and to auscultation. Good air exchange. No wheezing or rhonchi. HEART: S1, S2 regular. No murmurs, gallops or rubs. ABDOMEN: Soft and nontender. Bowel sounds are present. No organomegaly appreciated. EXTREMITIES: No clubbing or cyanosis. BUSSER: Awake, alert, and oriented x3. Cranial nerves 2 to 7 intact. There is no fasciculation or atrophy noted. No focal deficits observed. ASSESSMENT: 1. Obstructive sleep apnea hypopnea syndrome for 20 years. Patient continued to use CPAP equipment every night for the whole night. CPAP unit is old, apnea-hypopnea index increased to 12.2 while patient using CPAP. Extremely low position of soft palate Mallampati 4, wide neck 19 inches circumference. 2. Obesity, BMI 35.3. 3. Asthma. 4. Status post permanent pacemaker insertion. 5 diabetes mellitus. 6 . Depression. 7. Status post right hip replacement. 8. Status post left knee surgery. 9 . BPH. PLAN: 1. Prescription to replace CPAP unit to AutoPAP with the range of the pressure 8-17 cm of water. 2. Patient will continue to use CPAP equipment every night for the whole night 3. Preferable position during sleep on the side. 4. No driving if patient feels any sleepiness. Patient is aware of civil and criminal liability for unsafe driving. 5. Sleep hygiene with regular sleep time for at least 7.5-8 hours. 6. Watching and losing weight. 7. Follow-up visit in 1-3 months after patient will get new CPAP unit to evaluate clinical response on treatment, compliance with treatment and make any necessary adjustments related to mask fitting pressure and humidification Thank you very much for referring this patient for consultation. Sincerely, Rinku Henao MD, PhD, FAASM. Diplomat of [employer], Sleep Medicine Board by [employer] Head Inspector of [facility] Past Medical History Past Medical History: Asthma, Diabetes Mellitus, Hypertension, Osteoarthritis (OA), Sleep Apnea/CPAP/BIPAP Additional Past Medical History / Comment(s): Tachycardia, PVC'S. "Issues with one kidney, Dr elaine #'s." CPAP use. Arthritis in back, hips and knees, bone spurs to L2-L5. History of Any Multi-Drug Resistant Organisms: None Reported Past Surgical History: Back Surgery, Orthopedic Surgery, Pacemaker Additional Past Surgical History / Comment(s): LEFT KNEE SURGERY X2, RIGHTT KNEE SCOPE, HIATAL HERNIA/ESOPHAGUS REPAIR, COLONOSCOPY. Past Anesthesia/Blood Transfusion Reactions: Previous Problems w/ Anesthesia, Motion Sickness Additional Past Anesthesia/Blood Transfusion Reaction / Comment(s): SLOW TO COME OUT OF ANESTHESIA. Type of Cardiac Device: Permanent Pacemaker Device Placement Date:: 2010 Smoking Status: Never smoker - Past Family History Father Family Medical History: Cancer Mother Family Medical History: Rheumatoid Arthritis (RA) Brother(s) Family Medical History: Deep Vein Thrombosis (DVT) Medications and Allergies Home Medications Medication Instructions Recorded Confirmed Type Metoprolol Tartrate [Lopressor] 25 mg PO BID 09/11/14 01/04/23 History Flecainide Acetate 50 mg PO TID 12/18/14 01/04/23 History Doxepin [SINEquan] 10 mg PO HS 09/15/21 01/04/23 History Fluticasone/Vilanterol [Breo 1 inhalation INHALATION QAM 09/15/21 01/04/23 History Ellipta 200-25 Mcg Inhaler] Rosuvastatin Calcium 10 mg PO HS 09/15/21 01/04/23 History Ergocalciferol [Vitamin D2 (1250 1,250 mcg PO SA 04/27/22 01/04/23 History Mcg = 56294 Iu)] Multivit-Mins/Iron/Folic/Lycop 1 each PO DAILY 04/27/22 01/04/23 History [Centrum Men's Tablet] Tamsulosin HCl [Flomax] 0.4 mg PO HS 04/27/22 01/04/23 History Zypan (Digestive Enzyme) 7 tab PO TID 04/27/22 01/04/23 History Venlafaxine HCl ER [Effexor XR] 225 mg PO DAILY 05/02/22 01/04/23 History Docusate [Colace] 100 mg PO BID #20 capsule 01/04/23 Rx Doxycycline Hyclate 100 mg PO BID #10 tab 01/04/23 Rx HYDROcodone/APAP 7.5-325MG [Wallace 1 - 2 each PO Q6HR PRN #15 tab 01/04/23 Rx 7.5-325] Ondansetron [Zofran] 4 mg PO Q8HR PRN #21 tab 01/04/23 Rx Allergies Allergy/AdvReac Type Severity Reaction Status Date / Time garlic Allergy Swelling-TO Verified 01/04/23 08:05 NGUE gluten Allergy Nausea & Verified 01/04/23 08:05 Vomiting & Diarrhea onion Allergy Swelling-TO Verified 01/04/23 08:05 NGUE Sleep Note - Sleep Note Sleep Note: Temperature: Pulse Rate: Respiratory Rate: Blood Pressure: SpO2: Height: Weight: BMI: Neck Circumference:
== END ==
LOC: 3 N SLEEP 15:20
PROVIDERS: ATTEND Internal Medicine
DX: G47.33 Obstructive sleep apnea (adult) (pediatric) (principal); E66.9 Obesity, unspecified; J45.909 Unspecified asthma, uncomplicated; E11.9 Type 2 diabetes mellitus without complications; F32.A Depression, unspecified; N40.0 Benign prostatic hyperplasia without lower urinary tract symptoms; Z95.5 Presence of coronary angioplasty implant and graft; Z99.89 Dependence on other enabling machines and devices; Z68.35 Body mass index [BMI] 35.0-35.9, adult; Z96.641 Presence of right artificial hip joint; Z98.890 Other specified postprocedural states; Z91.018 Allergy to other foods
CPT/HCPCS: 99211

== ENCOUNTER → 2023-12-10 | Outpatient (CLI) | payer BC ==
[2023-12-10 17:40] LABS: African American GFR (CKD) 72 (>60 ml/min/1.73 sqM); Blood Urea Nitrogen 24 mg/dL (9-20); Non-African American GFR(CKD) 62 (>60 ml/min/1.73 sqM)
--- NOTE | 2023-12-10 18:33 | CT ---
EXAMINATION TYPE: CT chest w con DATE OF EXAM: 12/10/2023 COMPARISON: None HISTORY: Chronic cough, worse the last [address] DLP: 607.2 mGycm Automated exposure control for dose reduction was used. TECHNIQUE: CT scan of the chest is performed with IV Contrast, patient injected with 80 mL of Isovue 300. MIP I mages are created on CT scanner and reviewed. 3D reconstructed images are created on an independent w orkstation and reviewed. FINDINGS: LUNGS: The lungs are grossly clear, there is no concerning parenchymal mass or nodule identified. T here is no pleural effusion or pneumothorax seen. The tracheobronchial tree is patent. MEDIASTINUM: There are no greater than 1 cm hilar or mediastinal lymph nodes. No pericardial effusi on is seen. OTHER: There is a 2-lead cardiac pacemaker. Postsurgical changes at the GE junction. IMPRESSION: No significant abnormality seen. There is no acute cardiopulmonary disease. Follow-up recommendations for incidental pulmonary nodules are per [employer] or [employer].
== END | disposition home or self-care (01) ==
LOC: RADCTMAIN 16:43
PROVIDERS: ATTEND Internal Medicine Critical Care Medicine
DX: R05.3 Chronic cough (principal)
CPT/HCPCS: 82565; 84520; 71260; 36415; Q9967

== ENCOUNTER → 2024-02-19 | Day surgery (SDC) | payer BC ==
[2024-02-18 10:32] VITALS: BMI 33.7
[~2024-02-19] MED LIST changes: +LACTATED RINGERS 1,000 ML IV SCH; +PROPOFOL 10 MG/ML 20 ML VIAL IV ONE; -SODIUM CHLORIDE 0.9% 1,000 ML IV SCH; -ceFAZolin 1 GM in SODIUM CHLORIDE 0.9% IRRIG BTL 250 ML IRRIGATION PRN
[2024-02-19] MEDS: LACTATED RINGERS 1,000 ML IV ONE (07:55)
[2024-02-19 08:03] VITALS: TEMP 98
[2024-02-19 08:03] LABS: Glucose,Whole Blood 102 mg/dL (70-110)
--- NOTE | 2024-02-19 09:03 | P.GSHP ---
History of Present Illness H&P Date: 02/19/24 Chief Complaint: Colon cancer screening 63-year-old male here for colonoscopy. Last exam 3 years ago. Patient with poor prep on his last 2 studies. This time he did a 2-day bowel cleanse. No bowel complaints. Some hemorrhoidal swelling every 2 to 3 months. No bleeding. Patient had recent EGD with dilation by GI which helped his dysphagia symptoms. Past Medical History Past Medical History: Asthma, Diabetes Mellitus, Hyperlipidemia, Hypertension, Osteoarthritis (OA), Sleep Apnea/CPAP/BIPAP Additional Past Medical History / Comment(s): Tachycardia, PVC'S. "Issues with one kidney, Dr Pate watching #'s." CPAP use. Arthritis in back, hips and knees, bone spurs to L2-L5. History of Any Multi-Drug Resistant Organisms: None Reported Past Surgical History: Back Surgery, Orthopedic Surgery, Pacemaker Additional Past Surgical History / Comment(s): LEFT KNEE SURGERY X2, RIGHT KNEE SCOPE, HIATAL HERNIA/ESOPHAGUS REPAIR, COLONOSCOPY, back ablation,EGD Past Anesthesia/Blood Transfusion Reactions: Previous Problems w/ Anesthesia, Motion Sickness Additional Past Anesthesia/Blood Transfusion Reaction / Comment(s): slow to come out of anesthesia a long time ago Type of Cardiac Device: Permanent Pacemaker Device Placement Date:: 2022 Smoking Status: Never smoker - Past Family History Father Family Medical History: Cancer Mother Family Medical History: Rheumatoid Arthritis (RA) Brother(s) Family Medical History: Deep Vein Thrombosis (DVT) Medications and Allergies Home Medications Medication Instructions Recorded Confirmed Type Metoprolol Tartrate [Lopressor] 25 mg PO BID 09/11/14 02/18/24 History Flecainide Acetate 50 mg PO TID 12/18/14 02/18/24 History Doxepin [SINEquan] 10 mg PO HS 09/15/21 02/18/24 History Fluticasone/Vilanterol [Breo 1 inhalation INHALATION QAM 09/15/21 02/18/24 History Ellipta 200-25 Mcg Inhaler] Rosuvastatin Calcium 10 mg PO HS 09/15/21 02/18/24 History Ergocalciferol [Vitamin D2 (1250 1,250 mcg PO SA 04/27/22 02/18/24 History Mcg = 67342 Iu)] Multivit-Mins/Iron/Folic/Lycop 1 each PO DAILY 04/27/22 02/18/24 History [Centrum Men's Tablet] Tamsulosin HCl [Flomax] 0.4 mg PO HS 04/27/22 02/18/24 History Zypan (Digestive Enzyme) 7 tab PO TID 04/27/22 02/18/24 History Venlafaxine HCl ER [Effexor XR] 225 mg PO QAM 05/02/22 02/18/24 History Docusate [Colace] 100 mg PO BID #20 capsule 01/04/23 02/18/24 Rx Allergies Allergy/AdvReac Type Severity Reaction Status Date / Time garlic Allergy Swelling-TO Verified 02/18/24 09:45 NGUE gluten Allergy Nausea & Verified 02/18/24 09:45 Vomiting & Diarrhea onion Allergy Swelling-TO Verified 02/18/24 09:45 NGUE Surgical - Exam Vital Signs Temp Pulse Resp BP Pulse Ox 98 F 90 18 151/84 99 02/19/24 07:55 02/19/24 07:55 02/19/24 07:55 02/19/24 07:55 02/19/24 07:55 Physical exam: General: Well-developed, well-nourished HEENT: Normocephalic, sclerae nonicteric Abdomen: Nontender, nondistended Extremities: No edema Neuro: Alert and oriented Assessment and Plan (1) Colon cancer screening Narrative/Plan: Will proceed with colonoscopy at this time. Current Visit: No Status: Acute Code(s): Z12.11 - ENCOUNTER FOR SCREENING FOR MALIGNANT NEOPLASM OF COLON SNOMED Code(s): 628948773
--- NOTE | 2024-02-19 09:21 | P.PCN ---
Date of Procedure: 02/19/24 Procedure(s) Performed: PREOPERATIVE DIAGNOSIS: Colon cancer screening POSTOPERATIVE DIAGNOSIS: Diverticulosis PROCEDURE: Colonoscopy ANESTHESIA: MAC SURGEON: Cruzito Haro M.D. SPECIMENS: None ENDOSCOPIC PROCEDURE: The patient was placed on the endoscopy table in the left decubitus position. The Olympus colonoscope was inserted into the anus and passed under direct visualization to the base of the cecum. The appendiceal orifice was visualized. From that point the scope was slowly withdrawn inspe cting all surfaces carefully. There were no neoplastic inflammatory or polypoid lesions throughout the cecum, ascending, transverse, descending, sigmoid and rectum. There was mild scattered diverticulosis noted. Digital rectal examination was normal. The patient was taken to the recovery room in stable condition per anesthesia guidelines. RECOMMENDATIONS: Resume diet. Repeat colonoscopy 10 years.
[2024-02-19 09:34] LABS: Glucose,Whole Blood 106 mg/dL (70-110)
[2024-02-19 10:04] VITALS: BP 129/78; PULSE 59; RESP 16
== END ==
LOC: ORWHC2ENDO 07:32
PROVIDERS: ATTEND Surgery
DX: Z12.11 Encounter for screening for malignant neoplasm of colon (principal); K57.30 Diverticulosis of large intestine without perforation or abscess without bleeding; I10 Essential (primary) hypertension; E11.69 Type 2 diabetes mellitus with other specified complication; E78.5 Hyperlipidemia, unspecified; G47.33 Obstructive sleep apnea (adult) (pediatric); F32.A Depression, unspecified; J45.909 Unspecified asthma, uncomplicated; Z95.0 Presence of cardiac pacemaker; Z79.51 Long term (current) use of inhaled steroids; Z79.899 Other long term (current) drug therapy; Z91.018 Allergy to other foods
CPT/HCPCS: 45378; J2704

== ENCOUNTER → 2024-03-26 | Outpatient (CLI) | payer BC ==
--- NOTE | 2024-03-31 15:18 | CT ---
EXAMINATION TYPE: CT lumbar spine wo con CT DLP: 1744.1 mGycm, Automated exposure control for dose reduction was used. DATE OF EXAM: 03/26/2024 2:45 PM COMPARISON: 11/26/2020. CLINICAL INDICATION:Male, 63 years old with history of M51.17 DISC DISORDERS W RAD M96.1 POSTLAMINECT WENDY; PHH, chronic lumbar pain and down both legs TECHNIQUE: Multiple axial images were obtained from the midportion of T11 through the sacroiliac zee nts. Soft tissue and bone windows in coronal and sagittal planes were obtained and reviewed. 3-D ref ormats of the bones were created on a separate workstation and submitted for review. Contrast used: mL of , (None, if empty). Oral contrast used: (None, if empty). FINDINGS: There are 5 lumbar type vertebra identified. There is slight grade 1 retrolisthesis L5 on S1. No pars defects identified. Moderate disc space narrowing with moderate to severe spurring L5-S1 level other pittman vertebral body heights and disc space heights are maintained. Review of axial images shows T12-L1, L1-L2, and L2-L3 levels all 2 appear within normal limits. Axial images at L3-L4 level mild broad disc bulge mildly effacing the anterior thecal sac, patent giuseppe ateral neural foramina. Mild facet arthropathy bilaterally. Axial images at the L4-L5 level show moderate broad disc bulge and moderate facet degenerative change s. There is effacement of the anterior and posterior lateral thecal sac and at least 6 mm anterior po sterior dimension of the thecal sac within the soft tissue of the central canal. There is moderate le ft and mild right-sided neural foraminal narrowing. Axial images at L5-S1 levels with spondylolisthesis with left paracentral disc osteophyte complex, so me encroachment on the central left S1 nerve suspected axial image 67. Patent spinal canal. Mild bila teral neural foraminal narrowing. Bilateral laminectomy defects. Paraspinal muscle bulk is maintained. Mild calcified plaque of the abdominal aorta. IMPRESSION: Postsurgical change lumbosacral junction. Multilevel degenerative changes, greatest at L5-S1 level, as detailed above.
== END | disposition home or self-care (01) ==
LOC: RADCTMAIN 08:17
PROVIDERS: ATTEND Psychiatry & Neurology Neurology
DX: M47.27 Other spondylosis with radiculopathy, lumbosacral region (principal); M51.17 Intervertebral disc disorders with radiculopathy, lumbosacral region; M96.1 Postlaminectomy syndrome, not elsewhere classified; M51.37 Other intervertebral disc degeneration, lumbosacral region; M54.50 Low back pain, unspecified; M25.562 Pain in left knee; Z98.890 Other specified postprocedural states
CPT/HCPCS: 72131

== ENCOUNTER → 2024-06-19 | Outpatient (CLI) | payer BC ==
[2024-06-19 11:50] VITALS: BP 123/79; PULSE 68; RESP 97; TEMP 98.2
--- NOTE | 2024-06-19 12:43 | P.PROGSL ---
Subjective DATE: 06/19/2024 FOLLOW UP VISIT. Patient with obstructive sleep apnea hypopnea syndrome return to sleep center for follow-up visit. Patient received new CPAP unit and this is his first visit after he started to use new equipment. Information from previous visit have been reviewed. Patient is using PAP equipment every night for the whole night, getting PAP supplies in time. The patient does not have significant problems with the mask, PAP unit and humidification. [place] sleepiness scale is 7. I checked information from PAP unit. PAP unit pressure 8-19, average 14.1 cm H2O. Usage is 100% and 97% for more then 4 hours, average 7 hours per night. Leak is 25.2 l/m, which is in acceptable range. Apnea Hypopnea Index is increased to 11.6, which include central apnea hypopnea index 6.9 and obstructive 3.6. MEDICATIONS have been reviewed, please see below. During physical exam: GENERAL: A pleasant patient without any distress. VITAL SIGNS: Please see below, weight is 253.4 lbs. HEENT: PERRLA, EOMI.low position of soft palate, Mallapati 4 . NECK: Supple. No JVD. LUNGS: Clear to percussion and to auscultation. Good air exchange. No wheezing or rhonchi. HEART: S1, S2 regular. ABDOMEN: Soft and nontender. Obese EXTREMITIES: No clubbing or cyanosis. F[employer] FI[employer]NAGER: Awake, alert, and oriented x3. No focal deficit. Impressions: 1. Obstructive sleep apnea-hypopnea syndrome. Patient demonstrated great compliance with treatment, benefiting from treatment. 2. Reading from CPAP unit showed central sleep apneas, total apnea hypopnea index increased to 11.6, which include central apnea hypopnea index 6.9. 3. Obesity. 4. Asthma. 5. Status post permanent pacemaker insertion. 6. Diabetes mellitus. 7. History of depression. 8. BPH. 9. Status post right hip replacement. 10. Status post left knee surgery. Plan: 1. Continue using PAP equipment every night for the whole night. 2. Home sleep apnea test to check for obstructive and central sleep apneas. If significant amount of central sleep apneas will be present, we may consider BiPAP ST mode treatment. 3. PAP unit should stay lower then position of the head. 4. Advised patient to remove all remaining water from humidifier canister daily and make it dry after each usage. Refill canister with fresh distilled water before each usage. 5. Watching and losing weight. 6. Precautions related to driving. No driving if feel any sleepiness. 7. I will maintain prescription for PAP supplies including mask, tube, filters. 8. Follow up visit in 6 months or earlier if patient has any problems. Thank you very much for allowing me to participate in the management of your patient. Rinku Henao MD, PhD, FAASM. Diplomat of [place] [employer], Sleep Medicine Board by [place] [employer] [facility] [place] cc: Cory Villarreal MD Objective - Vital Signs Vital Signs: Vital Signs Temp 98.2 F 06/19/24 11:47 Pulse 68 06/19/24 11:47 Resp 97 H 06/19/24 11:47 BP 123/79 06/19/24 11:47 Pulse Ox 97 06/19/24 11:47 FiO2 Intake & Output 06/18/24 06/19/24 06/19/24 18:59 06:59 18:59 Weight 114.759 kg Home Medications: Home Medications Medication Instructions Recorded Confirmed Type Metoprolol Tartrate [Lopressor] 25 mg PO BID 09/11/14 06/19/24 History Flecainide Acetate 50 mg PO TID 12/18/14 06/19/24 History Doxepin [SINEquan] 10 mg PO HS 09/15/21 06/19/24 History Fluticasone/Vilanterol [Breo 1 inhalation INHALATION QA 09/15/21 06/19/24 History Ellipta 200-25 Mcg Inhaler] Rosuvastatin Calcium 10 mg PO HS 09/15/21 06/19/24 History Ergocalciferol [Vitamin D2 (1250 1,250 mcg PO SA 04/27/22 06/19/24 History Mcg = 15949 Iu)] Multivit-Mins/Iron/Folic/Lycop 1 each PO DAILY 04/27/22 06/19/24 History [Centrum Men's Tablet] Tamsulosin HCl [Flomax] 0.4 mg PO HS 04/27/22 06/19/24 History Zypan (Digestive Enzyme) 7 tab PO TID 04/27/22 06/19/24 History Venlafaxine HCl ER [Effexor XR] 225 mg PO QAM 05/02/22 06/19/24 History Docusate [Colace] 100 mg PO BID #20 capsule 01/04/23 06/19/24 Rx Empagliflozin [Jardiance] 10 mg PO 06/19/24 06/19/24 History
== END ==
LOC: 3 N SLEEP 10:52
PROVIDERS: ATTEND Internal Medicine
DX: G47.33 Obstructive sleep apnea (adult) (pediatric) (principal); E66.9 Obesity, unspecified; J45.909 Unspecified asthma, uncomplicated; E11.9 Type 2 diabetes mellitus without complications; N40.0 Benign prostatic hyperplasia without lower urinary tract symptoms; F32.A Depression, unspecified; Z98.890 Other specified postprocedural states; Z96.641 Presence of right artificial hip joint; Z95.0 Presence of cardiac pacemaker; Z99.89 Dependence on other enabling machines and devices; Z79.51 Long term (current) use of inhaled steroids; Z91.018 Allergy to other foods; Z79.84 Long term (current) use of oral hypoglycemic drugs; Z68.34 Body mass index [BMI] 34.0-34.9, adult
CPT/HCPCS: 99212

== ENCOUNTER → 2024-09-22 | Outpatient (CLI) | payer BC ==
[2024-09-22 11:19] LABS: ALT 26 U/L (10-49); AST 27 U/L (14-35); Albumin 4.2 g/dL (3.8-4.9); Albumin/Globulin Ratio 1.91 Ratio (1.60-3.17); Alkaline Phosphatase 69 U/L (41-126); BUN/Creat Ratio 15.62 Ratio (12.00-20.00); Blood Urea Nitrogen 20.3 mg/dL (9.0-27.0); Calcium 9.2 mg/dL (8.7-10.3); Chloride 105 mmol/L (96-109); Chol/HDL Ratio 6.99 Ratio; Globulin 2.2 g/dL (1.6-3.3); Glucose 116 mg/dL (70-110); LDL Cholesterol,Calculated 205.1 mg/dL (0.0-131.0); Potassium 4.5 mmol/L (3.5-5.5); Sodium 138 mmol/L (135-145); Total Bilirubin 0.7 mg/dL (0.3-1.2); Total Protein 6.4 g/dL (6.2-8.2)
[2024-09-22 11:36] LABS: Microalbumin Creatinine Ratio <12 mg/g Cr (0-30)
== END | disposition home or self-care (01) ==
LOC: LABWHC1 07:31
PROVIDERS: ATTEND Internal Medicine Endocrinology, Diabetes & Metabolism
DX: E11.9 Type 2 diabetes mellitus without complications (principal); E55.9 Vitamin D deficiency, unspecified; E21.3 Hyperparathyroidism, unspecified
CPT/HCPCS: 36415; 80053; 80061; 82043; 82306; 82570; 83036; 83970; 84443

== ENCOUNTER → 2024-10-01 | Outpatient (CLI) | payer BC ==
--- NOTE | 2024-10-08 16:23 | P.PCN ---
Description of Procedure: CLINICAL: A home sleep apnea test has been done for confirmation of possible obstructive sleep apnea-hypopnea syndrome. DESCRIPTION OF PROCEDURE: RESULTS: Recording time was 6 hours 24 minutes. Evaluation time was 6 hours 13 minutes. Evaluation time is sufficient for making conclusion about results of the test. Raw data of sleep recording has been reviewed and is adequate. Respiratory channel showed 176 apneas and 143 hypopneas. Apnea-hypopnea index was 67.2 per hour, which included obstructive apnea index 15.8, central apnea index 25.5, mixed apnea index 2.1. Pulse rate in the range between minimum 50, maximum 219, average 58 by computer calculation. Lowest desaturation was 79%. IMPRESSION: 1. Central sleep apnea hypopnea syndrome and obstructive sleep apnea hypopnea syndrome in severe range. Please see other impressions from consultation. PLAN: 1. The patient should have PAP titration for correction of respiratory abnormallities during sleep, possibly will need BiPAP ST mode unit treatment. 2. Sleep hygiene with regular time in bed for at least 8 hours. 3. Watching weight. 4. No driving if feeling any sleepiness. Thank you very much for allowing me to participate in the management of your patient. Sincerely, Rinku Henao MD, PhD, FAASM Diplomat of [employer] Sleep Medicine Board of [employer] [facility] [place] cc: Cory Villarreal MD
== END ==
LOC: 3 N SLEEP 10:51
PROVIDERS: ATTEND Internal Medicine
DX: G47.33 Obstructive sleep apnea (adult) (pediatric) (principal); G47.31 Primary central sleep apnea; Z91.018 Allergy to other foods

== ENCOUNTER 2024-10-02 05:40 | Day surgery (SDC) | payer BC ==
[~2024-10-02 05:40] MED LIST changes: -LACTATED RINGERS 1,000 ML IV SCH; -PROPOFOL 10 MG/ML 20 ML VIAL IV ONE; +Pre Op ABX Message 1 EACH MISC MISCELLANE ONE
[2024-10-02] MEDS ORDERED: droPERidol 5 MG/2 ML VIAL IVP ONE (06:08)
[2024-10-02] MEDS ORDERED: LIDOCAINE 1% (10MG/ML) FOR IV START INTRADERMA PRN (06:08)
[2024-10-02] MEDS: IV FLUID CONTINUATION 1,000 ML IV ONE (06:31)
[2024-10-02 06:38] LABS: Glucose,Whole Blood 92 mg/dL (70-110)
[2024-10-02] MEDS: ONDANSETRON 4 MG/2 ML VIAL IVP ONE (06:44)
[2024-10-02] MEDS: LACTATED RINGERS 1,000 ML IV SCH (06:44)
[2024-10-02] MEDS ORDERED: HYDROmorphone 0.5 MG/0.5 ML SYRINGE IVP PRN (07:00)
[2024-10-02] MEDS ORDERED: PROPOFOL 10 MG/ML 20 ML VIAL IV ONE (07:27)
[2024-10-02] MEDS ORDERED: fentaNYL (PF) 50 MCG/ML 2 ML AMP ONE (07:27)
[2024-10-02] MEDS ORDERED: LIDOCAINE 1% INJ 10MG/ML (20 ML MDV) ONE (07:27)
[2024-10-02] MEDS ORDERED: SUCCINYLCHOLINE CHLORIDE 200 MG/10 ML VIAL IV ONE (07:27)
[2024-10-02] MEDS ORDERED: ePHEDrine 50 MG/ML 1 ML VIAL ONE (07:27)
[2024-10-02] MEDS ORDERED: MIDAZOLAM 2 MG/2 ML VIAL ONE (07:27)
[2024-10-02] MEDS: SODIUM CHLORIDE 0.9% 100 ML with ceFAZolin 1,000 MG IV ONE (07:32)
[2024-10-02] MEDS: LIDOCAINE 1%-EPI 1:100,000 20 ML VIAL SQ ONE (07:51)
[2024-10-02 08:29] VITALS: TEMP 97.2
[2024-10-02 08:47] LABS: Glucose,Whole Blood 117 mg/dL (70-110)
[2024-10-02 09:16] VITALS: RESP 17
[2024-10-02 10:15] VITALS: BP 130/72; PULSE 59
--- NOTE | 2024-10-02 10:21 | OP ---
OPERATIVE REPORT DATE OF SERVICE : 10/02/2024 PREOPERATIVE DIAGNOSES: 1. Left knee chondromalacia. 2. Left knee large symptomatic calcified loose body. POSTOPERATIVE DIAGNOSES: 1. Left knee chondromalacia. 2. Left knee large symptomatic calcified loose body. PROCEDURE PERFORMED: Left knee arthroscopic removal 2.5 cm calcified loose body. ANESTHESIA: General endotracheal. ESTIMATED BLOOD LOSS: Minimal. TOURNIQUET: None. DRAINS: None. COMPLICATIONS: None apparent. DISPOSITION: Postanesthesia care unit. INDICATIONS: Yousuf is a very pleasant 64-year-old male, who has developed significant catching and locking in his knee. It is quite painful. He has known longstanding osteoarthrosis of the knee. What is seem to bother most recently though is this very painful catching that he gets. X-ray revealed a large calcified loose body in the suprapatellar pouch. I had a long discussion with him with regard to treatment options. At this point, he feels that his arthritis is not advanced enough to warrant a total knee arthroplasty, and he would like to proceed with removal of that calcified loose body. The risks were explained to the patient, which include, but are not limited to risk of infection, nerve damage, bleeding, pain, and a small risk of deep vein thrombosis, which could lead to fatal pulmonary embolism. He also understands that the removal of loose body may fail to alleviate his symptoms. All of his questions were answered to his satisfaction. The patient understands and wishes to proceed with surgical procedure. Examination under anesthesia: Range of motion, right full, left full; effusion, right none, left mild Wild's; right normal good endpoint, left normal good endpoint; pivot shift, right grade 0, left grade 0; posterior drawer, right normal good endpoint, left normal good endpoint; varus laxity, right none, left none; valgus laxity, right none, left none; external rotation, right normal, left normal. ARTHROSCOPIC FINDINGS: Suprapatellar pouch, large calcified loose body in the suprapatellar pouch. Medial gutter was normal. Lateral gutter was normal. Patella, grade 4 change. Trochlea, grade 4 change. Patellar tracking was normal. Medial femoral condyle, grade 4 change. Medial tibial plateau, grade 4 change. Medial meniscus, degenerative fraying of the medial meniscus. Lateral femoral condyle, grade 4 change. Lateral tibial plateau, grade 4 change. Lateral meniscus, degenerative fraying. Anterior cruciate ligament intact. Posterior cruciate ligament, normal. DESCRIPTION OF THE PROCEDURE: The patient was identified in the preoperative holding area. Surgical site was marked by both the patient and myself. He was given 2 g of Ancef IV for prophylactic purposes. He was then transported to the operative suite. He was placed supine on the operating room table. A general anesthetic was then administered, dosed per the anesthesia without apparent complication. Examination under anesthesia was then performed of both knees. The findings are noted above. Tourniquet was then placed high on the left upper thigh, well-padded in preparation for surgery. The tourniquet was not inflated throughout the entire procedure. The patient's left lower extremity was then prepped and draped in usual sterile fashion. Standard surgical pause was undertaken to ensure that we were operating the correct site and appropriate preoperative antibiotics were given. All staff were in agreement, and we proceeded. The knee was then inflated with 120 mL of sterile saline solution. This was done to gradually distend the joint. A standard inferolateral portal was then made. A 30- degree arthroscope was introduced into the suprapatellar pouch. The arthroscopic pump pressure was set to 60 mmHg and maintained at a level throughout the entire case. Next, utilizing an 18-gauge spinal needle to help localize the placement, the inferomedial portal was made under direct visualization. A standard diagnostic arthroscopy of the knee was then performed. The findings were noted as above. Attention was drawn to the suprapatellar pouch. A very large calcified loose body. I did have to make a third superolateral portal. This was again done after first localizing with an 18-gauge spinal needle. I was then able to remove the calcified loose body utilizing a hemostat through this portal. At this point in time, no further work was deemed necessary. The knee was thoroughly irrigated and drained with an outflow cannula. The arthroscopic equipment was removed from the knee. The arthroscopic portals were then closed with 3-0 nylon interrupted suture. Sterile compressive dressing was then applied. All sponge and needle counts were deemed correct prior to closure. The patient tolerated the procedure without apparent complication. The tourniquet was not inflated throughout the entire procedure. He was transferred to the recovery room in stable condition. MMODL / IJN: [id number] /
== END 2024-10-02 10:16 | disposition home or self-care (01) ==
LOC: OR 05:40
PROVIDERS: ATTEND Orthopaedic Surgery Sports Medicine
DX: M23.42 Loose body in knee, left knee (principal); M94.262 Chondromalacia, left knee; I10 Essential (primary) hypertension; E78.5 Hyperlipidemia, unspecified; J45.909 Unspecified asthma, uncomplicated; I49.3 Ventricular premature depolarization; G47.33 Obstructive sleep apnea (adult) (pediatric); E11.9 Type 2 diabetes mellitus without complications; F32.A Depression, unspecified; M19.90 Unspecified osteoarthritis, unspecified site; Z79.51 Long term (current) use of inhaled steroids; Z79.899 Other long term (current) drug therapy; Z91.048 Other nonmedicinal substance allergy status; Z91.018 Allergy to other foods
CPT/HCPCS: 29874; J2250; J0330; J2405; J0690; J2003; J3010; J2704

== ENCOUNTER 2024-11-10 19:46 | Outpatient (CLI) | payer BC ==
--- NOTE | 2024-11-13 12:01 | P.PCN ---
Description of Procedure: CLINICAL: Titration with positive air pressure has been done for correction of respiratory abnormalities during sleep. DESCRIPTION OF PROCEDURE: The standard montage for clinical polysomnography included the electroencephalogram, the electrocardiogram, the mentalis surface electromyography and Lead II cardiography. The respiratory battery consisted of measurements of nasal /buccal air flow, pressure transducer measurements from the nose, thoracic and /or abdominal effort and intercostal surface electromyography. Video monitoring has been done to check for any parasomnia events. Nocturnal oxyhemoglobin saturations were obtained by finger oximetry. Step-pittman titration with positive airway pressure was utilized to control respiratory events. Raw data of sleep recording has been reviewed and is adequate. RESULTS: Sleep efficiency was decreased to 83.2%. Latency to sleep onset was normal 14.5 minutes.]. Sleep architecture showed stage N1 was significantly increased to 45.0%, Delta sleep was absent 0%, REM sleep was decreased to 10.4%. Heart rate was minimum 50 BPM, maximum 56 BPM, average 52 BPM. EMG showed 3.9 periodic limb movements per hour with 0.7 micriarousals per hour. PAP titration have been done with CPAP up to the pressure 9 cm H2O. Patient had problems with CPAP, switched to BPAP. BPAP titrated up to 16/[address] mode with respiratory rate 12. The best results were at the pressure BiPAP ST 15/11 cm H2O with respiratory rate 12. Apnea hypopnea index reduced to 0.8. At that pressure of patient was in non-REM sleep for 162 minutes and then REM sleep for 29.5 minutes. IMPRESSION: 1. Central and obstructive sleep apnea hypopnea syndrome on controle with BPAP ST mode treatment. 2. No significant periodic limb movements have been documented. Please see other impressions from consultation. PLAN: 1. The patient will have treatment with positive air pressure equipment with the level of pressure BPAP ST 15/11 cm H2O with respiratory rate 12 and should use it every night for the whole night. 2. Watching and losing weight. 3. Sleep hygiene with regular time in bed for at least 8 hours. 4. No driving if feeling any sleepiness. 5. I will see the patient for follow up visit to explain the results of the test, recommendations, check compliance with treatment and make any necessary adjustment related to mask fitting, pressure and humidification. Thank you very much for allowing me to participate in the management of your patient. Sincerely, Rinku Henao MD, PhD, FAASM Diplomat of [place] [employer] Sleep Medicine Board of [place] [employer] [facility] [employer] [place] cc: Cory Villarreal MD
== END 2024-11-11 12:24 | disposition home or self-care (01) ==
LOC: 3 N SLEEP 19:46
PROVIDERS: ATTEND Internal Medicine
DX: G47.31 Primary central sleep apnea (principal); G47.33 Obstructive sleep apnea (adult) (pediatric); Z91.018 Allergy to other foods
CPT/HCPCS: 95811

== ENCOUNTER → 2025-03-23 | Outpatient (CLI) | payer MEDICARE, OTHER ==
[2025-03-23 15:33] LABS: ALT 24 U/L (10-49); AST 30 U/L (14-35); Albumin 4.3 g/dL (3.8-4.9); Albumin/Globulin Ratio 1.87 Ratio (1.60-3.17); Alkaline Phosphatase 70 U/L (41-126); BUN/Creat Ratio 13.71 Ratio (12.00-20.00); Blood Urea Nitrogen 19.2 mg/dL (9.0-27.0); Calcium 9.5 mg/dL (8.7-10.3); Carbon Dioxide 24.3 mmol/L (21.6-31.8); Chloride 104 mmol/L (96-109); Chol/HDL Ratio 5.26 Ratio; Globulin 2.3 g/dL (1.6-3.3); Glucose 110 mg/dL (70-110); LDL Cholesterol,Calculated 147.5 mg/dL (0.0-131.0); Potassium 4.9 mmol/L (3.5-5.5); Sodium 139 mmol/L (135-145); Total Bilirubin 0.7 mg/dL (0.3-1.2); Total Protein 6.6 g/dL (6.2-8.2)
[2025-03-23 19:04] LABS: Microalbumin Creatinine Ratio <11 mg/g Cr (0-30)
== END | disposition home or self-care (01) ==
LOC: LABWHC1 07:58
PROVIDERS: ATTEND Internal Medicine Endocrinology, Diabetes & Metabolism
DX: E11.9 Type 2 diabetes mellitus without complications (principal)
CPT/HCPCS: 36415; 80053; 80061; 82043; 82570; 83036; 84443

== ENCOUNTER 2025-05-31 09:00 | Emergency (ER) | payer MEDICARE, OTHER ==
[2025-05-31 09:09] VITALS: TEMP 98
[2025-05-31] MEDS: HYDROmorphone 1 MG/ML 1 ML SYRINGE IVP STA (10:01)
[2025-05-31] MEDS: KETOROLAC 15 MG/ML 1 ML VIAL IVP STA (10:02)
[2025-05-31] MEDS: methylPREDNISolone SOD SUCCI 125 MG/2 ML VIAL IV STA (10:03)
--- NOTE | 2025-05-31 10:09 | ED ---
General Adult HPI - General Chief complaint: Back Pain/Injury Stated complaint: Lower back pain Time Seen by Provider: 05/31/25 09:10 Source: patient, family, RN notes reviewed, old records reviewed Mode of arrival: ambulatory Limitations: no limitations - History of Present Illness Initial comments: This is a 65-year-old male who presents to the emergency department complaining of chronic back pain. Patient states he has had sciatica in the past but all of a sudden over the last few days the pain is in the left lower back and radiates down his left leg. Patient denies any numbness or weakness. Patient denies any difficulty urinating or having bowel movements. Patient states it is just more painful and he cannot stand it at home. Patient will follow-up with his neurologist. Patient denies any recent injury. Patient denies any abdominal pain. Patient states these are symptoms she has had in the past - Related Data Home Medications Medication Instructions Recorded Confirmed Metoprolol Tartrate [Lopressor] 25 mg PO BID 09/11/14 10/02/24 Flecainide Acetate 50 mg PO TID 12/18/14 10/02/24 Doxepin [SINEquan] 10 mg PO HS 09/15/21 10/02/24 Fluticasone/Vilanterol [Breo 1 inhalation INHALATION QAM 09/15/21 10/02/24 Ellipta 200-25 Mcg Inhaler] Rosuvastatin Calcium 10 mg PO HS 09/15/21 10/02/24 Ergocalciferol [Vitamin D2 (1250 1,250 mcg PO SA 04/27/22 10/02/24 Mcg = 49094 Iu)] Multivit-Mins/Iron/Folic/Lycop 1 each PO DAILY 04/27/22 10/02/24 [Centrum Men's Tablet] Tamsulosin HCl [Flomax] 0.4 mg PO HS 04/27/22 10/02/24 Zypan (Digestive Enzyme) 7 tab PO TID 04/27/22 10/02/24 Venlafaxine HCl ER [Effexor XR] 225 mg PO QAM 05/02/22 10/02/24 Empagliflozin [Jardiance] 10 mg PO DAILY 06/19/24 10/02/24 Albuterol Inhaler [Ventolin Hfa 1 - 2 puff INHALATION Q6H PRN 09/29/24 10/02/24 Inhaler] Previous Rx's Medication Instructions Recorded Aspirin [Adult Low Dose Aspirin EC] 81 mg PO DAILY #14 tab 10/02/24 HYDROcodone/APAP 5-325MG [[place] 1 tab PO Q4HR PRN #10 tab 10/02/24 5-325] Ondansetron [Zofran] 4 mg PO Q8HR PRN #10 tab 10/02/24 predniSONE [Deltasone] 40 mg PO DAILY #8 tab 05/31/25 Allergies Allergy/AdvReac Type Severity Reaction Status Date / Time garlic Allergy Swelling-TO Verified 05/31/25 09:09 NGUE gluten Allergy Nausea & Verified 05/31/25 09:09 Vomiting & Diarrhea onion Allergy Swelling-TO Verified 05/31/25 09:09 NGUE Review of Systems ROS Statement: Those systems with pertinent positive or pertinent negative responses have been documented in the HPI. ROS Other: All systems not noted in ROS Statement are negative. Past Medical History Past Medical History: Asthma, Diabetes Mellitus, Hyperlipidemia, Hypertension, Osteoarthritis (OA), Sleep Apnea/CPAP/BIPAP Additional Past Medical History / Comment(s): Tachycardia, PVC'S. "Issues with one kidney, Dr Pate watching #'s." CPAP use. Arthritis in back, hips and knees, bone spurs to L2-L5. History of Any Multi-Drug Resistant Organisms: None Reported Past Surgical History: Back Surgery, Orthopedic Surgery, Pacemaker Additional Past Surgical History / Comment(s): LEFT KNEE SURGERY X2, RIGHT KNEE SCOPE, HIATAL HERNIA/ESOPHAGUS REPAIR, COLONOSCOPY, back ablation,EGD Past Anesthesia/Blood Transfusion Reactions: Previous Problems w/ Anesthesia, Motion Sickness Additional Past Anesthesia/Blood Transfusion Reaction / Comment(s): slow to come out of anesthesia a long time ago Type of Cardiac Device: Permanent Pacemaker Device Placement Date:: 2022 Past Psychological History: Depression Smoking Status: Never smoker Past Alcohol Use History: None Reported Past Drug Use History: None Reported - Past Family History Father Family Medical History: Cancer, Coronary Artery Disease (CAD) Mother Family Medical History: Hypertension, Rheumatoid Arthritis (RA) Brother(s) Family Medical History: Deep Vein Thrombosis (DVT) General Exam - General Exam Comments Initial Comments: GENERAL: Patient is well-developed and well-nourished. Patient is nontoxic and well- hydrated and is in moderate distress. ENT: Neck is soft and supple. No significant lymphadenopathy is noted. Oropharynx is clear. Moist mucous membranes. Neck has full range of motion without eliciting any pain. EYES: The sclera were anicteric and conjunctiva were pink and moist. Extraocular movements were intact and pupils were equal round and reactive to light. Eyelids were unremarkable. PULMONARY: Unlabored respirations. Good breath sounds bilaterally. No audible rales rhonchi or wheezing was noted. CARDIOVASCULAR: There is a regular rate and rhythm without any murmurs gallops or rubs. ABDOMEN: Soft and nontender with normal bowel sounds. SKIN: Skin is clear with no lesions or rashes and otherwise unremarkable. NEUROLOGIC: Patient is alert and oriented x3. Cranial nerves II through XII are grossly intact. Motor and sensory are also intact. Normal speech, volume and content. Symmetrical smile. Perineum sensation is normal. Straight leg test is negative MUSCULOSKELETAL: Normal extremities with adequate strength and full range of motion. Patient is not having any reproducible back pain. LYMPHATICS: No significant lymphadenopathy is noted PSYCHIATRIC: Normal psychiatric evaluation. Limitations: no limitations Course Vital Signs 05/31/25 05/31/25 09:07 10:10 Temperature 98 F Pulse Rate 72 51 L Respiratory 18 16 Rate Blood Pressure 150/87 147/86 O2 Sat by Pulse 98 95 Oximetry Medical Decision Making - Medical Decision Making Was pt. sent in by a medical professional or institution (, JEREMY, RENEWABLE ENERGY TECHNICIAN, urgent care, hospital, or usp...) When possible be specific @ -No Did you speak to anyone other than the patient for history (EMS, parent, family, police, friend...)? What history was obtained from this source @ -No Did you review nursing and triage notes (agree or disagree)? Why? @ -I reviewed and agree with nursing and triage notes Were old charts reviewed (outside hosp., previous admission, EMS record, old EKG, old radiological studies, urgent care reports/EKG's, usp records)? Report findings @ -No old charts were reviewed Differential Diagnosis? @ -Differential Back Pain: Strain, zoster, cauda equina syndrome, epidural abscess, vertebral osteomyelitis, discitis, fracture, subluxation, disc herniation, DJD, spinal stenosis, dissection, AAA, pancreatitis, peptic ulcer disease, pyelonephritis, kidney stone, this is not meant to be an all-inclusive list. EKG interpreted by me (3pts min.). @ -As above X-rays interpreted by me (1pt min.). @ -Lumbosacral spine showed no acute abnormality CT interpreted by me (1pt min.). @ -None done U/S interpreted by me (1pt. min.). @ -None done What testing was considered but not performed or refused? (CT, X-rays, U/S, labs)? Why? @ -None What meds were considered but not given or refused? Why? @ -None Did you discuss the management of the patient with other professionals (professionals i.e. Dr., PA, RENEWABLE ENERGY TECHNICIAN, lab, RT, psych nurse, social work lecturer, building carpenter helper, teacher, associate loan officer, case specialist)? Give summary @ -No Was smoking cessation discussed for >3mins.? @ -No Was critical care preformed (if so, how long)? @ -No Were there social determinants of health that impacted care today? How? (Homelessness, low income, unemployed, alcoholism, drug addiction, transportation, low edu. Level, literacy, decrease access to med. care, intermediate, rehab)? @ -No Was there de-escalation of care discussed even if they declined (Discuss DNR or withdrawal of care, Hospice)? DNR status @ -No What co-morbidities impacted this encounter? (DM, HTN, Smoking, COPD, CAD, Cancer, CVA, ARF, Chemo, Hep., AIDS, mental health diagnosis, sleep apnea, morbid obesity)? @ -None Was patient admitted / discharged? Hospital course, mention meds given and route, prescriptions, significant lab abnormalities, going to OR and other pertinent info. @ -Patient was given Solu-Medrol Toradol and Dilaudid for pain. Patient was feeling considerably better. Patient will be discharged home to follow-up with his neurologist Undiagnosed new problem with uncertain prognosis? @ -No Drug Therapy requiring intensive monitoring for toxicity (Heparin, Nitro, Insulin, Cardizem)? @ -No Were any procedures done? @ -No Diagnosis/symptom? @ -Sciatica Acute, or Chronic, or Acute on Chronic? @ -Acute Uncomplicated (without systemic symptoms) or Complicated (systemic symptoms)? @ -Complicated Side effects of treatment? @ -No Exacerbation, Progression, or Severe Exacerbation? @ -No Poses a threat to life or bodily function? How? (Chest pain, [place], [place], pneumonia, PE, COPD, DKA, ARF, appy, cholecystitis, CVA, Diverticulitis, Homicidal, Suicidal, threat to staff... and all critical care pts) @ -No Disposition Clinical Impression: Sciatica Disposition: HOME SELF-CARE Condition: Good Instructions (If sedation given, give patient instructions): Sciatica (ED) Prescriptions: predniSONE [Deltasone] 40 mg PO DAILY #8 tab Is patient prescribed a controlled substance at d/c from ED?: No Referrals: Cory Villarreal MD [Primary Care Provider] - 1-2 days Time of Disposition: 11:06
[2025-05-31 10:11] VITALS: BP 147/86; PULSE 51; RESP 16
--- NOTE | 2025-05-31 10:36 | XR ---
Lumbar spine HISTORY: Sciatic pain. COMPARISON: None TECHNIQUE: 4 views of the lumbar spine were obtained FINDINGS: The lumbar vertebral segments are normal in height and alignment and there is no fracture or subluxat ion. The disc spaces are well preserved in height from L1 through L5. There is probable mild degenerative disc disease at the L5-S1 level. There is hypertrophic changes of the facet joints in the lower lumbar spine at L4-5 and L5-S1. IMPRESSION: 1. No lumbar spine fracture or malalignment. 2. Mild degenerative disease at the L5-S1 level. 3. Facet arthropathy in the lower lumbar spine. [facility], Workstation: [facility], 05/31/2025 10:34 AM
== END 2025-05-31 11:30 | disposition home or self-care (01) ==
LOC: EC 09:00
DX: M54.42 Lumbago with sciatica, left side (principal); Z91.018 Allergy to other foods
CPT/HCPCS: 99284; 96374; 96375; 72110; J1171; J1885; J2919

== ENCOUNTER 2025-06-01 18:43 | Inpatient (IN) | payer MEDICARE ==
--- NOTE | 2025-06-01 20:52 | XR ---
EXAMINATION TYPE: XR chest 2V DATE OF EXAM: 06/01/2025 8:35 PM COMPARISON: Chest radiographs from 02/21/2019. CLINICAL INDICATION: Male, 65 years old with history of Chest Pain; [facility] TECHNIQUE: XR chest 2V Frontal and lateral views of the chest. FINDINGS: Lungs/Pleura: There is no evidence of pleural effusion, focal consolidation, or pneumothorax. Pulmonary vascularity: Unremarkable. Heart/mediastinum: Cardiomediastinal silhouette is unremarkable. Two lead cardiac conduction device o verlying the left hemithorax with lead tips projecting over the right ventricle and right atrium. Musculoskeletal: No acute osseous pathology. Other findings: None IMPRESSION: No acute cardiopulmonary disease/process. [facility], , 06/01/2025 8:50 PM
[2025-06-01 21:02] LABS: Basophils # (A) 0.04 10*3/uL (0.00-0.10); Basophils % (A) 0.2 %; Eosinophils # (A) 0.04 10*3/uL (0.04-0.35); Eosinophils % (A) 0.2 %; HCT 50.5 % (39.6-50.0); HGB 17.7 g/dL (13.0-17.0); Lymphocytes # (A) 3.56 10*3/uL (0.90-5.00); Lymphocytes % (A) 21.2 %; MCH 31.1 pg (27.0-32.0); MCHC 35.0 g/dL (32.0-37.0); MCV 88.6 fL (80.0-97.0); Monocytes # (A) 1.18 10*3/uL (0.20-1.00); Monocytes % (A) 7.0 %; Neutrophils # (A) 11.95 10*3/uL (1.80-7.70); Neutrophils % (A) 71.1 %; Platelet Count 217 10*3/uL (140-440); RBC 5.70 10*6/uL (4.40-5.60); RDW 13.7 % (11.5-14.5); WBC 16.82 10*3/uL (4.50-10.00)
--- NOTE | 2025-06-01 21:19 | ED ---
Chest Pain HPI - General Source: patient, RN notes reviewed Mode of arrival: ambulatory Limitations: no limitations <Adriano Hutchinson - Last Filed: 06/01/25 21:17> - General Source: patient, RN notes reviewed, old records reviewed Mode of arrival: ambulatory Limitations: no limitations - History of Present Illness MD Complaint: chest pain -: hour(s) Onset: during rest, during exertion Pain Location: substernal, left chest Pain Radiation: jaw/teeth Severity: moderate, severe Severity scale (1-10): 10 Quality: tightness, heaviness Consistency: constant Improves With: nothing Worsens With: nothing Anginal Symptoms: dyspnea, sense of impending doom Other Symptoms: palpitations Treatments Prior to Arrival: none <Elvis Farnsworth - Last Filed: 06/02/25 01:27> - General Chief Complaint: Chest Pain Stated Complaint: Chest/jaw pain Time Seen by Provider: 06/01/25 18:58 - History of Present Illness Initial Comments: Quick note: This is a 65-year-old male with history including DM, pacemaker, hypertension and hyperlipidemia presenting for chest pain starting at 1800 today. Patient describes the chest pain as constant pressure (9/10), radiating to left arm. Denies gvoj-etw-aopecyr medication use. Denies dizziness, lighth eadedness, dyspnea, diaphoresis. (Adriano Hutchinson) This is a 58-year-old male to ER for evaluation underlying diabetes history of for pressure and cholesterol with chest pain today chest pain heavy pressure arm and jaw (Elvis Farnsworth) - Related Data Home Medications Medication Instructions Recorded Confirmed Metoprolol Tartrate [Lopressor] 25 mg PO BID 09/11/14 10/02/24 Flecainide Acetate 50 mg PO TID 12/18/14 10/02/24 Doxepin [SINEquan] 10 mg PO HS 09/15/21 10/02/24 Fluticasone/Vilanterol [Breo 1 inhalation INHALATION QAM 09/15/21 10/02/24 Ellipta 200-25 Mcg Inhaler] Rosuvastatin Calcium 10 mg PO HS 09/15/21 10/02/24 Ergocalciferol [Vitamin D2 (1250 1,250 mcg PO SA 04/27/22 10/02/24 Mcg = 94581 Iu)] Multivit-Mins/Iron/Folic/Lycop 1 each PO DAILY 04/27/22 10/02/24 [Centrum Men's Tablet] Tamsulosin HCl [Flomax] 0.4 mg PO HS 04/27/22 10/02/24 Zypan (Digestive Enzyme) 7 tab PO TID 04/27/22 10/02/24 Venlafaxine HCl ER [Effexor XR] 225 mg PO QAM 05/02/22 10/02/24 Empagliflozin [Jardiance] 10 mg PO DAILY 06/19/24 10/02/24 Albuterol Inhaler [Ventolin Hfa 1 - 2 puff INHALATION Q6H PRN 09/29/24 10/02/24 Inhaler] Previous Rx's Medication Instructions Recorded Aspirin [Adult Low Dose Aspirin EC] 81 mg PO DAILY #14 tab 10/02/24 HYDROcodone/APAP 5-325MG [[place] 1 tab PO Q4HR PRN #10 tab 10/02/24 5-325] Ondansetron [Zofran] 4 mg PO Q8HR PRN #10 tab 10/02/24 predniSONE [Deltasone] 40 mg PO DAILY #8 tab 05/31/25 Allergies Allergy/AdvReac Type Severity Reaction Status Date / Time garlic Allergy Swelling-TO Verified 06/01/25 19:02 NGUE gluten Allergy Nausea & Verified 06/01/25 19:02 Vomiting & Diarrhea onion Allergy Swelling-TO Verified 06/01/25 19:02 NGUE Review of Systems ROS Other: All systems not noted in ROS Statement are negative. <Adriano Hutchinson - Last Filed: 06/01/25 21:17> ROS Other: All systems not noted in ROS Statement are negative. <Elvis Farnsworth - Last Filed: 06/02/25 01:27> ROS Statement: Those systems with pertinent positive or pertinent negative responses have been documented in the HPI. Past Medical History Past Medical History: Asthma, Diabetes Mellitus, Hyperlipidemia, Hypertension, Osteoarthritis (OA), Sleep Apnea/CPAP/BIPAP Additional Past Medical History / Comment(s): Tachycardia, PVC'S. "Issues with one kidney, Dr Pate watching #'s." CPAP use. Arthritis in back, hips and knees, bone spurs to L2-L5. History of Any Multi-Drug Resistant Organisms: None Reported Past Surgical History: Back Surgery, Orthopedic Surgery, Pacemaker Additional Past Surgical History / Comment(s): LEFT KNEE SURGERY X2, RIGHT KNEE SCOPE, HIATAL HERNIA/ESOPHAGUS REPAIR, COLONOSCOPY, back ablation,EGD Past Anesthesia/Blood Transfusion Reactions: Previous Problems w/ Anesthesia, Motion Sickness Additional Past Anesthesia/Blood Transfusion Reaction / Comment(s): slow to come out of anesthesia a long time ago Type of Cardiac Device: Permanent Pacemaker Device Placement Date:: 2022 Past Psychological History: Depression Smoking Status: Never smoker Past Alcohol Use History: None Reported Past Drug Use History: None Reported - Past Family History Father Family Medical History: Cancer, Coronary Artery Disease (CAD) Mother Family Medical History: Hypertension, Rheumatoid Arthritis (RA) Brother(s) Family Medical History: Deep Vein Thrombosis (DVT) <Adriano Hutchinson - Last Filed: 06/01/25 21:17> General Exam Limitations: no limitations <Adriano Hutchinson - Last Filed: 06/01/25 21:17> General appearance: alert, in no apparent distress Head exam: Present: atraumatic, normocephalic, normal inspection Eye exam: Present: normal appearance, PERRL, EOMI. Absent: scleral icterus, co njunctival injection, periorbital swelling ENT exam: Present: normal exam, mucous membranes moist Neck exam: Present: normal inspection. Absent: tenderness, meningismus, lymphadenopathy Respiratory exam: Present: normal lung sounds bilaterally. Absent: respiratory distress, wheezes, rales, rhonchi, stridor Cardiovascular Exam: Present: regular rate, normal rhythm, normal heart sounds. Absent: systolic murmur, diastolic murmur, rubs, gallop, clicks GI/Abdominal exam: Present: soft, normal bowel sounds. Absent: distended, tenderness, guarding, rebound, rigid Extremities exam: Present: normal inspection, full ROM, normal capillary refill. Absent: tenderness, pedal edema, joint swelling, calf tenderness Back exam: Present: normal inspection Neurological exam: Present: alert, oriented X3, CN II-XII intact Psychiatric exam: Present: normal affect, normal mood Skin exam: Present: warm, dry, intact, normal color. Absent: rash <Elvis Farnsworth - Last Filed: 06/02/25 01:27> - General Exam Comments Initial Comments: Visual Physical Exam Vital signs reviewed General: Patient appears to be distressed and in pain Head: Normocephalic, atraumatic Eyes: PERRLA, EOMI ENT: Airway patent Chest: Nonlabored breathing Skin: No visual rash, normal skin tone Neuro: Alert and oriented 3 Musculoskeletal: No gross abnormalities (Adriano Hutchinson) Course <Elvis Farnsworth - Last Filed: 06/02/25 01:27> Vital Signs 06/01/25 06/01/25 18:59 22:55 Temperature 97.8 F 97.6 F Pulse Rate 83 80 Respiratory 16 18 Rate Blood Pressure 196/110 173/84 O2 Sat by Pulse 100 98 Oximetry - Reevaluation(s) Reevaluation #1: 06/02/25 01:26 Medical records reviewed (Elvis Farnsworth) Reevaluation #2: 06/02/25 01:26 Chest pain is persistent here in the ER (Elvis Farnsworth) Reevaluation #3: 06/02/25 01:26 Patient informed of results questions answered (Elvis Farnsworth) Reevaluation #4: Was pt. sent in by a medical professional or institution (, PA, DRAFTER TOPOGRAPHICAL, urgent care, hospital, or retirement...) When possible be specific @ -no Did you speak to anyone other than the patient for history (EMS, parent, family, police, friend...)? What history was obtained from this source @ -no Did you review nursing and triage notes (agree or disagree)? Why? @ -agree Are old charts reviewed (outside hosp., previous admission, EMS record, old EKG, old radiological studies, urgent care reports/EKG's, retirement records)? Report findings @ -yes Differential Diagnosis (chest pain, altered mental status, abdominal pain women, abdominal pain men, vaginal bleeding, weakness, fever, dyspnea, syncope, headache, dizziness, GI bleed, back pain, seizure, CVA, palpatations, mental health, musculoskeletal)? @ -prior EKG interpreted by me (3pts min.). @ -yes X-rays interpreted by me (1pt min.). @ -yes negative for acute disease CT interpreted by me (1pt min.). @ -no U/S interpreted by me (1pt. min.). @ -no What testing was considered but not performed or refused? (CT, X-rays, U/S, labs)? Why? @ -none What meds were considered but not given or refused? Why? @ -none Did you discuss the management of the patient with other professionals (professionals i.e. , PA, DRAFTER TOPOGRAPHICAL, lab, RT, psych nurse, addiction social worker, immigration lawyer, teacher, contracting officer, immigration case worker)? Give summary @ -no Was smoking cessation discussed for >3mins.? @ -no Was critical care preformed (if so, how long)? @ -no Were there social determinants of health that impacted care today? How? (Homelessness, low income, unemployed, alcoholism, drug addiction, transportation, low edu. Level, literacy, decrease access to med. care, long term, rehab)? @ -none Was there de-escalation of care discussed even if they declined (Discuss DNR or withdrawal of care, Hospice)? DNR status @ -no What co-morbidities impacted this encounter? (DM, HTN, Smoking, COPD, CAD, Cancer, CVA, ARF, Chemo, Hep., AIDS, mental health diagnosis, sleep apnea, morbid obesity)? @ -none Was patient admitted / discharged? Hospital course, mention meds given and route, prescriptions, significant lab abnormalities, going to OR and other pertinent info. @ - Undiagnosed new problem with uncertain prognosis? @ -no Drug Therapy requiring intensive monitoring for toxicity (Heparin, Nitro, Insulin, Cardizem)? @ -no Were any procedures done? @ -no Diagnosis/symptom? @ - Acute, or Chronic, or Acute on Chronic? @ -Acute Uncomplicated (without systemic symptoms) or Complicated (systemic symptoms)? @ -Complicated Side effects of treatment? @ -no Exacerbation, Progression, or Severe Exacerbation? @ -exacerbation Poses a threat to life or bodily function? How? (Chest pain, [place], [place], pneumonia, PE, COPD, DKA, ARF, appy, cholecystitis, CVA, Diverticulitis, Homicidal, Suicidal, threat to staff... and all critical care pts) @ -yes (Elvis Farnsworth) Reevaluation #5: Differential Chest Pain: Stable Angina, Unstable Angina, STEMI, NSTEMI Aortic Dissection, Pneumothorax, Musculoskeletal, Esophageal Spasm GERD, Cholecystitis, Pancreatitis, Zoster, this is not meant to be an all-inclusive list. (Elvis Farnsworth) - Consultations Consultation #1: Spoke with sound who agrees to admit this patient (Elvis Farnsworth) Chest Pain MDM <Adriano Hutchinson - Last Filed: 06/01/25 21:17> <Elvis Farnsworth - Last Filed: 06/02/25 01:27> - MDM I completed the quick note portion of this chart signed CRESENCIO Lopez (Adriano Hutchinson) 65-year-old male to the ER for evaluation, patient presents today for evaluation of chest pain patient admitted for chest pain observation chest pain atypical in nature with history of heart disease (Elvis Farnsworth) Disposition <Adriano Htuchinson - Last Filed: 06/01/25 21:17> Is patient prescribed a controlled substance at d/c from ED?: No Time of Disposition: 01:00 <Elvis Farnsworth - Last Filed: 06/02/25 01:27> Clinical Impression: Atypical chest pain, Chest pain Disposition: ADMITTED IP TO THIS HOSP Condition: Fair Referrals: Cory Villarreal MD [Primary Care Provider] - 1-2 days
[2025-06-01 21:24] LABS: ALT 31 U/L (4-49); AST 35 U/L (17-59); African American GFR (CKD) 59 (>60 ml/min/1.73 sqM); Albumin 5.2 g/dL (3.5-5.0); Alkaline Phosphatase 85 U/L (38-126); Anion Gap 19 mmol/L; Blood Urea Nitrogen 35 mg/dL (9-20); Calcium 10.3 mg/dL (8.4-10.2); Carbon Dioxide 17 mmol/L (22-30); Chloride 102 mmol/L (98-107); Glucose 127 mg/dL (74-99); Magnesium 2.2 mg/dL (1.6-2.3); Non-African American GFR(CKD) 51 (>60 ml/min/1.73 sqM); Potassium 4.3 mmol/L (3.5-5.1); Sodium 138 mmol/L (137-145); Total Protein 8.3 g/dL (6.3-8.2)
[2025-06-01 21:42] LABS: INR 1.0 (<1.2); Partial Thromboplastin Time 22.6 sec (22.0-30.0); Prothrombin Time 10.9 sec (10.0-12.5)
--- NOTE | 2025-06-02 01:10 | CT ---
EXAM: CT Abdomen and Pelvis With Intravenous Contrast CLINICAL HISTORY: ITS.REASON CT Reason: pain TECHNIQUE: Axial computed tomography images of the abdomen and pelvis with intravenous contrast. CTDI is 37.4 mGy and DLP is 1923.9 mGy-cm. This CT exam was performed using one or more of the following dose reduction techniques: automated exposure control, adjustment of the mA and/or kV according to patient size, and/or use of iterative reconstruction technique. COMPARISON: 06/11/2023 FINDINGS: Lung bases: Unremarkable. Heart: Partially imaged cardiac pacer leads. ABDOMEN: Liver: Unremarkable. No mass. Gallbladder and bile ducts: Unremarkable. No calcified stones. No ductal dilation. Pancreas: Unremarkable. No mass. No ductal dilation. Spleen: Unremarkable. No splenomegaly. Adrenals: Unremarkable. No mass. Kidneys and ureters: Unremarkable. No solid mass. No hydronephrosis. Stomach and bowel: No bowel obstruction. Distal colonic diverticula without diverticulitis. PELVIS: Appendix: Normal appendix. Bladder: Unremarkable. No mass. Reproductive: Unremarkable as visualized. ABDOMEN and PELVIS: Intraperitoneal space: Unremarkable. No free fluid or free air. Bones/joints: Uncomplicated right total hip arthroplasty. Mild osteoarthritis of the left hip. L5-S1 disc degeneration. No acute fracture or dislocation. Soft tissues: Small fat containing umbilical hernia. Vasculature: Unremarkable. No abdominal aortic aneurysm. Lymph nodes: Unremarkable. No enlarged lymph nodes. IMPRESSION: No acute findings in the abdomen or pelvis.
--- NOTE | 2025-06-02 01:12 | CT ---
EXAM: CT Angiography Chest With Intravenous Contrast CLINICAL HISTORY: ITS.REASON CT Reason: pain TECHNIQUE: Axial computed tomographic angiography images of the chest with intravenous contrast. CTDI is 57.1 mGy and DLP is 723.3 mGy-cm. This CT exam was performed using one or more of the following dose reduction techniques: automated exposure control, adjustment of the mA and/or kV according to patient size, and/or use of iterative reconstruction technique. MIP reconstructed images were created and reviewed. COMPARISON: No relevant prior studies available. FINDINGS: Pulmonary arteries: No evidence of acute pulmonary embolism. Aorta: No aortic aneurysm or dissection. Lungs: Linear atelectasis or scar left lower lobe. No consolidation or mass. Pleural space: No significant effusion. No pneumothorax. Heart: No cardiomegaly. No significant pericardial effusion. Bones/joints: No acute fracture. No dislocation. Soft tissues: Unremarkable. Lymph nodes: No enlarged lymph nodes. Tubes, lines and devices: Left chest wall dual lead AICD-pacemaker. IMPRESSION: No evidence of acute pulmonary embolism.
[2025-06-02] MEDS ORDERED: MORPHINE SULFATE 4 MG/ML SYRINGE IV PRN (01:24)
[2025-06-02] MEDS: ASPIRIN 81 MG PO STA ×2 (02:02→09:51)
--- NOTE | 2025-06-02 03:13 | P.HPIM ---
History of Present Illness H&P Date: 06/02/25 Chief Complaint: chest pain Patient is a 65-year-old male with a PMH of - Dual-chamber pacemaker s/p heart block. Replaced 2021 - Type 2 diabetes mellitus - Hypertension - Hyperlipidemia - Asthma - Sleep apnea - Osteoarthritis Comes in to the emergency with a chest pain. Pt stated that chest pain started around 5 PM and became worse in the next few hours. It started as substernal and then migrated to the left shoulder and jaw. Pain started at rest, and per p atient, moving around made it better. Pt had diaphoresis with the chest pain, but denied palpitation and shortness of breath. Denied history of similar chest pain. Denied history of smoking . ED course: Patient was given aspirin 325 mg. Chest CTA to rule out PE and aortic dissection. Initial troponin was negative. Imaging: Chest x-ray 06/01 No acute cardiopulmonary disease CTA chest 06/01 No evidence of acute pulmonary embolism CT abdomen and pelvis 06/01 No acute findings in the abdomen or pelvis Labs: WBC 16.82/Hgb 17.7/HCT 50.5/plt count 217 Glucose 127/ Na 138/ K 4.3/ Cl102/ CO2 17/ BUN 35/ Cr 1.41 Vitals: T 97.8/ HR 83/ RR 16/ BP 196/110, MAP 138/ O2 sat 100% ED documentation reviewed. Review of systems: Pertinent positives and negatives as discussed in HPI, a complete review of systems was performed and all other systems are negative. Physical examination: Vital signs reviewed General: non toxic, no distress, appears at stated age, normal weight Derm: no unusual rashes/lesions, warm Head: atraumatic, normocephalic, symmetric Eyes: EOMI, anicteric sclera, pupils equal round reactive to light ENT: Nose and ears atraumatic Cardiovascular: S1S2 reg, no murmur, positive dorsalis pedis pulse bilateral, no edema Lungs: CTA bilateral, no rhonchi, no rales, no accessory muscle use Abdominal: soft, nontender to palpation, no guarding Ext: muscle strength 5 out of 5 in all 4 extremities grossly, no gross muscle atrophy Neuro: CN II-XI grossly intact, no gross focal neuro deficits Psych: Alert, oriented to person, place, and time Assessment/Plan: A 65-year-old male with PMH of diabetes mellitus, hypertension, hyperlipidemia, pacemaker s/p heart block comes into the ED for chest pain. #. Typical substernal chest pain - Heart score of 4 - Monitor troponin levels - Consult cardiology for stress test - Keep patient n.p.o. #. Pacemaker s/p heart block. Replaced 2021 - Continue Lopressor 25 mg and flecainide 50 mg #. Diabetes melitis, type II - Continue Farxiga 5 mg DVT prophylaxis: Lovenox 40 mg CODE STATUS: [] Discussed with: Dr. Kyrie López MD PGY-1 IM Dictation was produced using [employer] dictation software. please excuse any grammatical, word or spelling errors. Past Medical History Past Medical History: Asthma, Diabetes Mellitus, Hyperlipidemia, Hypertension, Osteoarthritis (OA), Sleep Apnea/CPAP/BIPAP Additional Past Medical History / Comment(s): Tachycardia, PVC'S. "Issues with one kidney, Dr Pate watching #'s." CPAP use. Arthritis in back, hips and knees, bone spurs to L2-L5. History of Any Multi-Drug Resistant Organisms: None Reported Past Surgical History: Back Surgery, Orthopedic Surgery, Pacemaker Additional Past Surgical History / Comment(s): LEFT KNEE SURGERY X2, RIGHT KNEE SCOPE, HIATAL HERNIA/ESOPHAGUS REPAIR, COLONOSCOPY, back ablation,EGD Past Anesthesia/Blood Transfusion Reactions: Previous Problems w/ Anesthesia, Mo tion Sickness Additional Past Anesthesia/Blood Transfusion Reaction / Comment(s): slow to come out of anesthesia a long time ago Type of Cardiac Device: Permanent Pacemaker Device Placement Date:: 2022 Past Psychological History: Depression Smoking Status: Never smoker Past Alcohol Use History: None Reported Past Drug Use History: None Reported - Past Family History Father Family Medical History: Cancer, Coronary Artery Disease (CAD) Mother Family Medical History: Hypertension, Rheumatoid Arthritis (RA) Brother(s) Family Medical History: Deep Vein Thrombosis (DVT) Medications and Allergies Home Medications Medication Instructions Recorded Confirmed Type Metoprolol Tartrate [Lopressor] 25 mg PO BID 09/11/14 10/02/24 History Flecainide Acetate 50 mg PO TID 12/18/14 10/02/24 History Doxepin [SINEquan] 10 mg PO HS 09/15/21 10/02/24 History Fluticasone/Vilanterol [Breo 1 inhalation INHALATION QAM 09/15/21 10/02/24 History Ellipta 200-25 Mcg Inhaler] Rosuvastatin Calcium 10 mg PO HS 09/15/21 10/02/24 History Ergocalciferol [Vitamin D2 (1250 1,250 mcg PO SA 04/27/22 10/02/24 History Mcg = 13442 Iu)] Multivit-Mins/Iron/Folic/Lycop 1 each PO DAILY 04/27/22 10/02/24 History [Centrum Men's Tablet] Tamsulosin HCl [Flomax] 0.4 mg PO HS 04/27/22 10/02/24 History Zypan (Digestive Enzyme) 7 tab PO TID 04/27/22 10/02/24 History Venlafaxine HCl ER [Effexor XR] 225 mg PO QAM 05/02/22 10/02/24 History Empagliflozin [Jardiance] 10 mg PO DAILY 06/19/24 10/02/24 History Albuterol Inhaler [Ventolin Hfa 1 - 2 puff INHALATION Q6H PRN 09/29/24 10/02/24 History Inhaler] Aspirin [Adult Low Dose Aspirin EC] 81 mg PO DAILY #14 tab 10/02/24 Rx HYDROcodone/APAP 5-325MG [[place] 1 tab PO Q4HR PRN #10 tab 10/02/24 Rx 5-325] Ondansetron [Zofran] 4 mg PO Q8HR PRN #10 tab 10/02/24 Rx predniSONE [Deltasone] 40 mg PO DAILY #8 tab 05/31/25 Rx Allergies Allergy/AdvReac Type Severity Reaction Status Date / Time garlic Allergy Swelling-TO Verified 06/01/25 19:02 NGUE gluten Allergy Nausea & Verified 06/01/25 19:02 Vomiting & Diarrhea onion Allergy Swelling-TO Verified 06/01/25 19:02 NGUE Physical Exam Vitals: Vital Signs Temp Pulse Resp BP Pulse Ox 06/01/25 22:55 97.6 F 80 18 173/84 98 06/01/25 18:59 97.8 F 83 16 196/110 100 Intake and Output 06/01/25 06/01/25 06/02/25 14:59 22:59 06:59 Other: Weight 113.398 kg Results CBC & Chem 7: 06/01/25 20:54 06/01/25 20:54 Labs: Abnormal Lab Results - Last 24 Hours (Table) 06/01/25 06/01/25 06/01/25 Range/Units 20:54 20:54 20:54 WBC 16.82 H (4.50-10.00) 10*3/uL RBC 5.70 H (4.40-5.60) 10*6/uL Hgb 17.7 H (13.0-17.0) g/dL Hct 50.5 H (39.6-50.0) % Immature Gran # 0.05 H (0.00-0.04) 10*3/uL Neutrophils # 11.95 H (1.80-7.70) 10*3/uL Monocytes # 1.18 H (0.20-1.00) 10*3/uL D-Dimer 1.25 H (<0.60) mg/L FEU Carbon Dioxide 17 L (22-30) mmol/L BUN 35 H (9-20) mg/dL Creatinine 1.41 H (0.66-1.25) mg/dL Glucose 127 H (74-99) mg/dL Calcium 10.3 H (8.4-10.2) mg/dL Troponin I (0.000-0.034) ng/mL Total Protein 8.3 H (6.3-8.2) g/dL Albumin 5.2 H (3.5-5.0) g/dL 06/02/25 Range/Units 01:33 WBC (4.50-10.00) 10*3/uL RBC (4.40-5.60) 10*6/uL Hgb (13.0-17.0) g/dL Hct (39.6-50.0) % Immature Gran # (0.00-0.04) 10*3/uL Neutrophils # (1.80-7.70) 10*3/uL Monocytes # (0.20-1.00) 10*3/uL D-Dimer (<0.60) mg/L FEU Carbon Dioxide (22-30) mmol/L BUN (9-20) mg/dL Creatinine (0.66-1.25) mg/dL Glucose (74-99) mg/dL Calcium (8.4-10.2) mg/dL Troponin I 0.043 H* (0.000-0.034) ng/mL Total Protein (6.3-8.2) g/dL Albumin (3.5-5.0) g/dL Assessment and Plan Assessment: I have seen and evaluated the patient today. Discussed with the resident and agree with the residents finding and plan as documented in the resident's note. Changes highlighted in blue font.
[2025-06-02 08:05] LABS: Basophils # (A) 0.06 10*3/uL (0.00-0.10); Basophils % (A) 0.5 %; Eosinophils # (A) 0.05 10*3/uL (0.04-0.35); Eosinophils % (A) 0.4 %; HCT 49.5 % (39.6-50.0); HGB 16.8 g/dL (13.0-17.0); Lymphocytes # (A) 2.61 10*3/uL (0.90-5.00); Lymphocytes % (A) 22.9 %; MCH 30.4 pg (27.0-32.0); MCHC 33.9 g/dL (32.0-37.0); MCV 89.5 fL (80.0-97.0); Monocytes # (A) 0.94 10*3/uL (0.20-1.00); Monocytes % (A) 8.2 %; Neutrophils # (A) 7.71 10*3/uL (1.80-7.70); Neutrophils % (A) 67.7 %; Platelet Count 189 10*3/uL (140-440); RBC 5.53 10*6/uL (4.40-5.60); RDW 13.8 % (11.5-14.5); WBC 11.40 10*3/uL (4.50-10.00)
[2025-06-02 08:29] LABS: African American GFR (CKD) 71 (>60 ml/min/1.73 sqM); Anion Gap 16 mmol/L; Blood Urea Nitrogen 30 mg/dL (9-20); Calcium 9.5 mg/dL (8.4-10.2); Carbon Dioxide 19 mmol/L (22-30); Chloride 105 mmol/L (98-107); Glucose 110 mg/dL (74-99); Non-African American GFR(CKD) 62 (>60 ml/min/1.73 sqM); Potassium 4.5 mmol/L (3.5-5.1); Sodium 140 mmol/L (137-145)
[2025-06-02] MEDS ORDERED: METOPROLOL TARTRATE 25 MG TAB PO SCH (09:00)
[2025-06-02] MEDS ORDERED: VENLAFAXINE HCL ER 75 MG CAP PO SCH (09:00)
[2025-06-02 09:01] LABS: Glucose,Whole Blood 107 mg/dL (70-110)
[2025-06-02] MEDS: NITROGLYCERIN SL TABS 0.4 MG TAB SUBLINGUAL PRN (09:05)
[2025-06-02] MEDS: SYMBICORT 160-4.5 MCG INHALER INHALATION SCH (09:15)
[2025-06-02] MEDS: HYDROcodone/APAP 5-325MG 1 EACH TAB PO PRN (09:15)
[2025-06-02] MEDS: METOPROLOL TARTRATE 25 MG TAB PO SCH (09:16)
[2025-06-02] MEDS: ASPIRIN 81 MG PO SCH (09:16)
[2025-06-02] MEDS: FLECAINIDE 50 MG TAB PO SCH ×3 (09:16→19:49)
[2025-06-02] MEDS ORDERED: NITROGLYCERIN SL TABS 0.4 MG TAB SUBLINGUAL PRN ×2 (09:23→11:54)
[2025-06-02] MEDS ORDERED: ASPIRIN 325 MG TAB PO STA (09:23)
[2025-06-02] MEDS ORDERED: ALPRAZolam 0.25 MG TAB PO PRN (09:23)
[2025-06-02] MEDS ORDERED: ALPRAZolam 0.5 MG TAB PO PRN (09:23)
[2025-06-02] MEDS ORDERED: HEPARIN SODIUM 1,000 UN/ML (10ML VL) IV PRN (09:23)
[2025-06-02] MEDS: DAPAGLIFLOZIN PROPANEDIOL 5 MG TABLET PO SCH (09:23)
[2025-06-02] MEDS: MONTELUKAST 10 MG TAB PO SCH (09:26)
[2025-06-02] MEDS: VENLAFAXINE HCL 50 MG TAB PO SCH (09:27)
[2025-06-02] MEDS ORDERED: FLECAINIDE 50 MG TAB PO SCH (09:45)
[2025-06-02] MEDS: SODIUM CHLORIDE 0.9% 1,000 ML IV SCH (09:52)
[2025-06-02] MEDS: ATORVASTATIN 80 MG TAB PO STA (09:52)
[2025-06-02] MEDS: HEPARIN SODIUM 1,000 UN/ML (10ML VL) IV ONE (09:56)
[2025-06-02] MEDS: IV FLUID CONTINUATION 1,000 ML IV ONE (10:25)
[2025-06-02] MEDS: HEPARIN SODIUM,PORCINE 10,000 UNIT in SODIUM CHLORIDE 0.9% 1,000 ML IRRIGATION PRN (10:26)
[2025-06-02] MEDS: HEPARIN SODIUM,PORCINE (1 ML) 2,500 UNIT in SODIUM CHLORIDE 0.9% 250 ML IRRIGATION PRN (10:26)
[2025-06-02] MEDS: fentaNYL (PF) 50 MCG/1 ML VIAL IVP ONE (10:49)
[2025-06-02] MEDS: MIDAZOLAM 2 MG/2 ML VIAL IVP ONE (10:52)
[2025-06-02] MEDS: LIDOCAINE 1% INJ 10MG/ML (20 ML MDV) SQ ONE (10:53)
[2025-06-02] MEDS: VERAPAMIL SYRINGE (5 MG/10 ML) INTRAARTER ONE (10:55)
[2025-06-02] MEDS: HEPARIN SODIUM 1,000 UN/ML (10ML VL) IVP ONE ×2 (11:02→11:14)
[2025-06-02] MEDS: PRASUGREL 10 MG TAB PO ONE (11:12)
[2025-06-02] MEDS: IOPAMIDOL-370 100ML BTL INJ ONE (11:31)
[2025-06-02] MEDS ORDERED: ZOLPIDEM 5 MG TAB PO PRN (11:54)
[2025-06-02] MEDS ORDERED: MAG HYDROX/AL HYDROX/SIMETH 30 ML CUP PO PRN (11:54)
[2025-06-02] MEDS ORDERED: ATROPINE SULFATE 0.1 MG/ML 10ML SYRINGE IV PRN (11:54)
[2025-06-02] MEDS ORDERED: RX INFO: IV CONTRAST WAS GIVEN 1 EACH MISC MISCELLANE PRN (11:54)
[2025-06-02 11:58] LABS: Basophils # (A) 0.06 10*3/uL (0.00-0.10); Basophils % (A) 0.5 %; Eosinophils # (A) 0.05 10*3/uL (0.04-0.35); Eosinophils % (A) 0.5 %; HCT 51.0 % (39.6-50.0); HGB 16.8 g/dL (13.0-17.0); Lymphocytes # (A) 2.21 10*3/uL (0.90-5.00); Lymphocytes % (A) 20.2 %; MCH 30.2 pg (27.0-32.0); MCHC 32.9 g/dL (32.0-37.0); MCV 91.6 fL (80.0-97.0); Monocytes # (A) 0.87 10*3/uL (0.20-1.00); Monocytes % (A) 8.0 %; Neutrophils # (A) 7.71 10*3/uL (1.80-7.70); Neutrophils % (A) 70.5 %; Platelet Count 213 10*3/uL (140-440); RBC 5.57 10*6/uL (4.40-5.60); RDW 14.0 % (11.5-14.5); WBC 10.93 10*3/uL (4.50-10.00)
--- NOTE | 2025-06-02 12:00 | P.CRDCN ---
History of Present Illness Consult date: 06/02/25 Consult reason: chest pain History of present illness: Patient is a 65-year-old male with history of heart block status post dual- chamber pacemaker, type 2 diabetes mellitus, obstructive sleep apnea, hypertension and hyperlipidemia presented to the ER with a complaint of sudden onset chest pain yesterday evening at home which he describes as squeezing type substernal radiating across his chest 10 out of 10 associated with dizziness, nausea vomiting and diaphoresis with no alleviating or aggravating factors. Patient reports that he was initially experiencing tightness of his jaw before he started experiencing this squeezing type substernal chest pain. Patient reports that he has been endorsing chest pain recently with physical activities. Patient is established with his primary reporting lead Dr. Meyer whom he saw last summer for a stress test and apparently it was negative. He also underwent heart catheterization 10 years ago which was unremarkable for coronary artery disease. At the time of the interview, patient is still in 1 out of 10 pain. Patient denies orthopnea, PND, worsening ankle edema. Patient denies smoking history, alcohol history, use of illicit drugs. Labs and images: Troponin: 0.043, 0.050, 0.037 WBC 16.8, hemoglobin 7.7, platelet count 217, sodium 138, potation 0.3, BUN 35, creatinine 1.41, calcium 10.3, magnesium 2.2 EKG reveals paced rhythm with no ST-T wave elevations noted. Ventricular rate 59 bpm, PA interval of 50 ms, QRS duration 129, QTc 417. Chest x-ray shows no acute cardiopulmonary process CTA negative for pulm embolism Review of systems: Pertinent positives and negatives as discussed in HPI, a complete review of systems was performed and all other systems are negative. Physical examination: Vital signs reviewed General: non toxic, no distress Head: atraumatic, normocephalic, symmetric Eyes: EOMI, no lid lag, anicteric sclera, pupils equal round reactive to light ENT: Nose and ears atraumatic Neck: No cervical lymphadenopathy, trachea midline, supple Mouth: no lip lesion, mucus membranes moist Cardiovascular: S1S2 reg, no murmur, positive dorsalis pedis pulse bilateral, no edema Lungs: CTA bilateral, no rhonchi, no rales, no accessory muscle use Abdominal: soft, nontender to palpation, no guarding Ext: muscle strength 5 out of 5 in all 4 extremities grossly, no gross muscle atrophy, no contractures, Neuro: CN II-XI grossly intact, no gross focal neuro deficits Psych: Alert, oriented, appropriate affect Assessment: # NSTEMI #Heart block status post dual-chamber pacemaker #Type 2 diabetes mellitus #Obstructive sleep apnea #Hypertension #Hyperlipidemia aspirin, Plan: Continue aspirin, statin, beta-marlin MILLI score of 3 points Plan for cardiac catheterization of the left heart possibly today Start patient on heparin drip Order echocardiogram Lipid panel, TSH, HbA1c Resume home cardiac medications Dictation was produced using [employer] dictation software. Please excuse any grammatical, word or spelling errors. Past Medical History Past Medical History: Asthma, Diabetes Mellitus, Hyperlipidemia, Hypertension, Osteoarthritis (OA), Sleep Apnea/CPAP/BIPAP Additional Past Medical History / Comment(s): Tachycardia, PVC'S. "Issues with one kidney, Dr Pate watching #'s." CPAP use. Arthritis in back, hips and knees, bone spurs to L2-L5. History of Any Multi-Drug Resistant Organisms: None Reported Past Surgical History: Back Surgery, Orthopedic Surgery, Pacemaker Additional Past Surgical History / Comment(s): LEFT KNEE SURGERY X2, RIGHT KNEE SCOPE, HIATAL HERNIA/ESOPHAGUS REPAIR, COLONOSCOPY, back ablation,EGD Past Anesthesia/Blood Transfusion Reactions: Previous Problems w/ Anesthesia, Motion Sickness Additional Past Anesthesia/Blood Transfusion Reaction / Comment(s): slow to come out of anesthesia a long time ago Type of Cardiac Device: Permanent Pacemaker Device Placement Date:: 2022 Past Psychological History: Depression Smoking Status: Never smoker Past Alcohol Use History: None Reported Past Drug Use History: None Reported - Past Family History Father Family Medical History: Cancer, Coronary Artery Disease (CAD) Mother Family Medical History: Hypertension, Rheumatoid Arthritis (RA) Brother(s) Family Medical History: Deep Vein Thrombosis (DVT) Medications and Allergies Home Medications Medication Instructions Recorded Confirmed Type Metoprolol Tartrate [Lopressor] 25 mg PO BID 09/11/14 06/02/25 History Flecainide Acetate 100 mg PO DAILY 12/18/14 06/02/25 History Doxepin [SINEquan] 10 mg PO HS 09/15/21 06/02/25 History Fluticasone/Vilanterol [Breo 1 puff INHALATION RT-DAILY 09/15/21 06/02/25 History Ellipta 200-25 Mcg Inhaler] Tamsulosin HCl [Flomax] 0.4 mg PO HS 04/27/22 06/02/25 History Empagliflozin [Jardiance] 10 mg PO HS 06/19/24 06/02/25 History predniSONE [Deltasone] 40 mg PO DAILY #8 tab 05/31/25 06/02/25 Rx Flecainide [Tambocor] 50 mg PO HS 06/02/25 06/02/25 History Montelukast [Singulair] 10 mg PO DAILY 06/02/25 06/02/25 History Rosuvastatin [Crestor] 10 mg PO DAILY 06/02/25 06/02/25 History Venlafaxine HCl [Effexor] 200 mg PO DAILY 06/02/25 06/02/25 History Allergies Allergy/AdvReac Type Severity Reaction Status Date / Time garlic Allergy Swelling-TO Verified 06/02/25 07:42 NGUE onion Allergy Swelling-TO Verified 06/02/25 07:42 NGUE gluten AdvReac Nausea & Verified 06/02/25 07:42 Vomiting & Diarrhea Physical Exam Vitals: Vital Signs Temp Pulse Resp BP Pulse Ox 06/02/25 09:17 99 06/02/25 09:11 88 18 149/81 97 06/02/25 09:00 82 20 162/90 98 06/02/25 04:35 72 18 157/101 97 06/01/25 22:55 97.6 F 80 18 173/84 98 06/01/25 18:59 97.8 F 83 16 196/110 100 Intake and Output 06/01/25 06/02/25 06/02/25 22:59 06:59 14:59 Intake Total 200 Balance 200 Intake: IV 200 Other: Weight 113.398 kg Results 06/02/25 10:10 06/02/25 07:16 Cardiac Enzymes 06/01/25 06/01/25 06/02/25 Range/Units 20:54 20:54 01:33 AST 35 (17-59) U/L Troponin I <0.012 0.043 H* (0.000-0.034) ng/mL 06/02/25 06/02/25 Range/Units 04:13 07:16 AST (17-59) U/L Troponin I 0.050 H* 0.037 H* (0.000-0.034) ng/mL Coagulation 06/01/25 Range/Units 20:54 PT 10.9 (10.0-12.5) sec APTT 22.6 (22.0-30.0) sec CBC 06/01/25 06/02/25 06/02/25 Range/Units 20:54 07:16 10:10 WBC 16.82 H 11.40 H 10.93 H (4.50-10.00) 10*3/uL RBC 5.70 H 5.53 5.57 (4.40-5.60) 10*6/uL Hgb 17.7 H 16.8 16.8 (13.0-17.0) g/dL Hct 50.5 H 49.5 51.0 H (39.6-50.0) % Plt Count 217 189 213 (140-440) 10*3/uL Comprehensive Metabolic Panel 06/01/25 06/02/25 Range/Units 20:54 07:16 Sodium 138 140 (137-145) mmol/L Potassium 4.3 4.5 (3.5-5.1) mmol/L Chloride 102 105 (98-107) mmol/L Carbon Dioxide 17 L 19 L (22-30) mmol/L BUN 35 H 30 H (9-20) mg/dL Creatinine 1.41 H 1.21 (0.66-1.25) mg/dL Glucose 127 H 110 H (74-99) mg/dL Calcium 10.3 H 9.5 (8.4-10.2) mg/dL AST 35 (17-59) U/L ALT 31 (4-49) U/L Alkaline Phosphatase 85 (38-126) U/L Total Protein 8.3 H (6.3-8.2) g/dL Albumin 5.2 H (3.5-5.0) g/dL Current Medications Generic Name Dose Route Start Last Admin Trade Name Freq PRN Reason Stop Dose Admin Hydrocodone Bitart/Acetaminophen 1 each 06/02/25 02:30 06/02/25 09:15 Hydrocodone/Apap 5-325mg 1 Each Tab PO 1 each Q4HR PRN Administration Pain Al Hydroxide/Mg Hydroxide 30 ml 06/02/25 11:54 Mag Hydrox/Al Hydrox/Simeth 30 Ml Cup PO Q4HR PRN Heartburn Alprazolam 0.25 mg 06/02/25 09:23 Alprazolam 0.25 Mg Tab PO Q6HR PRN Mild Anxiety Alprazolam 0.5 mg 06/02/25 09:23 Alprazolam 0.5 Mg Tab PO Q6HR PRN Moderate Anxiety Aspirin 81 mg 06/02/25 09:00 06/02/25 09:16 Aspirin 81 Mg PO 81 mg DAILY AMY Administration Atorvastatin Calcium 40 mg 06/02/25 21:00 Atorvastatin 40 Mg Tab PO HS AMY Atropine Sulfate 0.5 mg 06/02/25 11:54 Atropine Sulfate 0.1 Mg/Ml 10ml Syringe IV ONCE PRN Symptomatic Bradycardia Budesonide/Formoterol Fumarate 2 puff 06/02/25 08:00 06/02/25 09:15 Symbicort 160-4.5 Mcg Inhaler INHALATION 2 puff RT-BID AMY Administration Doxepin HCl 10 mg 06/02/25 21:00 Doxepin 10 Mg Cap PO HS AMY Flecainide Acetate 50 mg 06/02/25 21:00 Flecainide 50 Mg Tab PO HS AMY Flecainide Acetate 100 mg 06/02/25 10:00 Flecainide 50 Mg Tab PO DAILY AMY Heparin Sodium (Porcine) 10, 1,001 mls @ 999 mls/hr 06/03/25 07:00 06/02/25 10:26 000 unit/ Sodium Chloride IRRIGATION 06/03/25 23:00 0 mls ONCE PRN Administration INTRA-OP Heparin Sodium (Porcine) 2,500 250.5 mls @ 250 mls/hr 06/03/25 07:00 06/02/25 10:26 unit/ Sodium Chloride IRRIGATION 06/03/25 23:00 0 mls ONCE PRN Administration INTRA-OP Sodium Chloride 1,000 mls @ 75 mls/hr 06/02/25 09:45 06/02/25 09:52 Saline 0.9% IV 75 mls/hr .[id number] AMY Administration Sodium Chloride 1,000 ml/ IV 1,000 mls @ 113.398 mls/hr 06/02/25 12:00 Solution IV 06/02/25 14:59 .Q8H50M AMY 1 ML/KG/HR Metoprolol Tartrate 25 mg 06/02/25 09:00 06/02/25 09:16 Metoprolol Tartrate 25 Mg Tab PO 25 mg BID AMY Administration Miscellaneous Information 1 each 06/02/25 11:54 Rx Info: Iv Contrast Was Given 1 Each Misc MISCELLANE 06/04/25 11:55 DAILY PRN Per Protocol Montelukast Sodium 10 mg 06/02/25 09:00 06/02/25 09:26 Montelukast 10 Mg Tab PO 10 mg DAILY AMY Administration Morphine Sulfate 4 mg 06/02/25 01:24 Morphine Sulfate 4 Mg/Ml Syringe IV Q4HR PRN Chest Pain Nitroglycerin 0.4 mg 06/02/25 01:24 06/02/25 09:05 Nitroglycerin Sl Tabs 0.4 Mg Tab SUBLINGUAL 0.4 mg Q5M PRN Administration Chest Pain Nitroglycerin 0.4 mg 06/02/25 09:23 Nitroglycerin Sl Tabs 0.4 Mg Tab SUBLINGUAL Q5M PRN Chest Pain Nitroglycerin 0.4 mg 06/02/25 11:54 Nitroglycerin Sl Tabs 0.4 Mg Tab SUBLINGUAL Q5M PRN Chest Pain Prasugrel 10 mg 06/03/25 09:00 Prasugrel 10 Mg Tab PO DAILY [facility] Protocol Tamsulosin HCl 0.4 mg 06/02/25 21:00 Tamsulosin 0.4 Mg Cap.Er.24h PO HS [facility] Venlafaxine HCl 200 mg 06/02/25 09:00 06/02/25 09:27 Venlafaxine Hcl 50 Mg Tab PO 200 mg DAILY AMY Administration Zolpidem Tartrate 5 mg 06/02/25 11:54 Zolpidem 5 Mg Tab PO HS PRN Insomnia Intake and Output 06/01/25 06/02/25 06/02/25 22:59 06:59 14:59 Intake Total 200 Balance 200 Intake: IV 200 Other: Weight 113.398 kg 06/02/25 10:10 06/02/25 07:16
--- NOTE | 2025-06-02 12:16 | P.CARDCATH ---
Date of Procedure: 06/02/25 Description of Procedure: Cardiac Catheterization: The patient is a 65-year-old male with known history of hypertension and hyperlipidemia who presented with symptoms of chest comfort with evidence of troponin elevation consistent with non-STEMI. Recommendations were made regarding cardiac catheterization, the risks and the complications were discussed with the patient who is in full understanding and agreement. Procedure Description: Patient was brought to [facility] in fasting semi-sedated state after receiving Fentanyl and Benadryl achieiving moderate conscious sedated state. Using Xylocaine Anesthesia and modified Seldinger technique, a 6-Mongolian sheath was introduced in the right radial artery . Subsequently, selective coronary angiography was performed using a 5-Mongolian 3.5 bend Syl catheter. Multiple views of the coronary artery including hemiaxial views were obtained. PCI: After removing the catheters a 6 Mongolian CLS 3.5 guiding catheter was introduced and after cannulating the left main a 0.014 BMW J-wire was positioned in the distal obtuse marginal branch. Subsequently a [employer] Lounge eye IVUS catheter was introduced and imaging was performed and revealed a distal lumen of 3.5 mm in diameter and proximally a 4 to 4.4 mm in diameter. After removing the balloon a 3.5 x 18 mm Xience sarbjit point stent was advanced and deployed at 16 edgardo after removing the balloon repeat IVUS imaging was performed and revealed mild under deployment proximally and subsequently a 4.0 x 12 mm NC trek balloon was advanced and 1 inflation proximally at 10 edgardo was done. After removing the balloon the wire was removed and images revealed stable successful stenting. Following that, catheter and sheath were removed. Hemostasis was obtained with deployment of vascular band . There was no immediate complication. Patient was returned to room in stable condition. Of note, the patient received a total of 6000 units of intravenous heparin as well as intra-arterial verapamil. He received an oral loading dose of Effient. His ACT was monitored. He had no chest discomfort. He had mild EKG changes that resolved. Findings: Left main: This is a short size vessel, bifurcating into LAD and left circumflex, left main has no obstructive disease. LAD: This is a large size vessel, reaching to the apex with a wraparound the apex segment giving rise to small diagonal branch. The LAD and its branches have no obstructive disease. Left circumflex: This is a large nondominant vessel giving rise to a large obtuse marginal branch. Proximal to the takeoff of the obtuse marginal branch there is an 80% stenosis, the rest of the vessel has no high-grade stenosis RCA: This is a large dominant vessel, bifurcating distally to PDA and PLV. The mid right coronary artery has mild intimal disease of 10 to 20% there is a 30% plaque distally the rest of the vessel has no high-grade stenosis Left Ventriculogram: Not performed Conclusion: 1. Severe stenosis in the proximal left circumflex 2. Mild disease in the RCA 3. Right dominance 4. Successful stenting of the proximal left circumflex with reduction stenosis from 80% to less than 5% with IVUS imaging and MILLI-3 flow Recommendations: The patient will continue on aspirin and Effient for 1 year without any interruption in addition to aggressive coronary risks modification, maintaining LDL to less than 70 mg/dL. The findings and the recommendations were discussed with the patient and the family and they were in full understanding and agreement. Duration of sedation is 67 minutes.
[2025-06-02 12:58] LABS: INR 1.2 (<1.2); Partial Thromboplastin Time 83.9 sec (22.0-30.0); Prothrombin Time 13.2 sec (10.0-12.5)
[2025-06-02] MEDS: SODIUM CHLORIDE 0.9% 1,000 ML in EMPTY BAG 1 BAG IV SCH (14:01)
[2025-06-02 16:34] LABS: Glucose,Whole Blood 97 mg/dL (70-110)
[2025-06-02] MEDS: TAMSULOSIN 0.4 MG CAP.ER.24H PO SCH (19:49)
[2025-06-02] MEDS: ATORVASTATIN 40 MG TAB PO SCH (19:49)
[2025-06-02 20:06] LABS: Glucose,Whole Blood 133 mg/dL (70-110)
[2025-06-02] MEDS ORDERED: ATORVASTATIN 20 MG TAB PO SCH (21:00)
[2025-06-02] MEDS: predniSONE 20 MG TAB PO SCH (21:12)
[2025-06-02] MEDS: DOXEPIN 10 MG CAP PO SCH (22:07)
[2025-06-03 06:14] LABS: Glucose,Whole Blood 146 mg/dL (70-110)
[2025-06-03] MEDS: INSULIN LISPRO (HumaLOG) 100 UNIT/ML 10 mL VL SQ SCH (06:25)
[2025-06-03 06:45] LABS: Basophils # (A) 0.03 10*3/uL (0.00-0.10); Basophils % (A) 0.4 %; Eosinophils # (A) 0.00 10*3/uL (0.04-0.35); Eosinophils % (A) 0.0 %; HCT 49.0 % (39.6-50.0); HGB 16.7 g/dL (13.0-17.0); Lymphocytes # (A) 1.19 10*3/uL (0.90-5.00); Lymphocytes % (A) 16.9 %; MCH 30.3 pg (27.0-32.0); MCHC 34.1 g/dL (32.0-37.0); MCV 88.9 fL (80.0-97.0); Monocytes # (A) 0.26 10*3/uL (0.20-1.00); Monocytes % (A) 3.7 %; Neutrophils # (A) 5.51 10*3/uL (1.80-7.70); Neutrophils % (A) 78.3 %; Platelet Count 191 10*3/uL (140-440); RBC 5.51 10*6/uL (4.40-5.60); RDW 13.8 % (11.5-14.5); WBC 7.04 10*3/uL (4.50-10.00)
[2025-06-03 06:55] LABS: INR 1.0 (<1.2); Prothrombin Time 11.0 sec (10.0-12.5)
[2025-06-03 07:08] LABS: African American GFR (CKD) 79 (>60 ml/min/1.73 sqM); Anion Gap 12 mmol/L; Blood Urea Nitrogen 23 mg/dL (9-20); Calcium 9.7 mg/dL (8.4-10.2); Carbon Dioxide 22 mmol/L (22-30); Chloride 101 mmol/L (98-107); Glucose 152 mg/dL (74-99); Non-African American GFR(CKD) 69 (>60 ml/min/1.73 sqM); Potassium 5.1 mmol/L (3.5-5.1); Sodium 135 mmol/L (137-145)
[2025-06-03] MEDS ORDERED: FLECAINIDE 50 MG TAB PO SCH (09:00)
[2025-06-03] MEDS ORDERED: ASPIRIN 325 MG TAB PO SCH (09:00)
[2025-06-03] MEDS: PRASUGREL 10 MG TAB PO SCH (09:39)
[2025-06-03 10:53] LABS: Cholesterol 207.00 mg/dL (0.00-200.00); HDL Cholesterol 46.90 mg/dL (40.00-60.00); LDL Cholesterol,Calculated 133.3 mg/dL (0.0-131.0); Triglycerides 134.00 mg/dL (0.00-149.00); VLDL Calculation 26.80 mg/dL (5.00-40.00)
[2025-06-03 11:32] LABS: Glucose,Whole Blood 117 mg/dL (70-110)
[2025-06-03] MEDS: HEPARIN SOD,PORK IN 0.45% NACL 25,000 UNIT in 0.45% NACL 1 250ML.BAG IV SCH (11:50)
--- NOTE | 2025-06-03 11:59 | P.PN ---
Subjective Progress Note Date: 06/03/25 Subjective: Patient seen and examined at bedside. No acute events overnight. Feels much better after catheterization. Denies any chest pain. Pertinent positives and negatives as discussed above, a complete review of systems was performed and all other systems are negative. Vitals: Signs Reviewed Physical Exam: General: nontoxic, no distress, appears at stated age Derm: warm, dry, intact Head: atraumatic, normocephalic, symmetric Eyes: EOMI, anicteric sclera Mouth: no lip lesion, mucus membranes moist Cardiovascular: S1 S2 reg, no murmur, rubs, or gallops Lungs: CTA bilateral, no rhonchi, no rales, no accessory muscle use Abdominal: soft, non-tender to palpataion, no appreciable organomegaly Extremities: no gross muscle atrophy, no edema, no contractures Neuro: Alert, Oriented, CNII-XII grossly intact, gait normal Psych: well appearing, appropriate affect Data Received Today: Pertinent Labs: WBC 7.04, Hgb 16.7, sodium 135, BUN 23, creatinine 1.11, glucose 152 Imaging: Echocardiogram pending Assessment and Plan: Patient is a 65-year-old male being seen for acute chest pain and admitted for NSTEMI. Status post catheterization and stent placement at [facility]. #. NSTEMI S/p heart catheterization with left circumflex artery stent Continue aspirin 81 mg daily and prasugrel 10 mg p.o. daily Metoprolol 25 mg p.o. twice daily Echocardiogram pending Cardiology following, wants to monitor overnight #. Hypertension Start patient on lisinopril 20 mg p.o. twice daily Monitor electrolytes Chronic: #. Chronic low back pain Routinely follows up with orthopedic for longstanding back pain Resume prednisone 40 mg p.o. daily from outpatient orthopedic #. AV block block status post dual-chamber pacemaker Continue home flecainide #. Anxiety/depression Effexor 200 mg p.o. daily yeah #. BPH Flomax 0.4 mg p.o. at bedtime Resolved: Hypertensive emergency Code status: FULL CODE Anticipated discharge place: Home Anticipated discharge time: Likely tomorrow Kimberlyn Main MD PGY-1 IM Dictation was produced using [email or web address] dictation software. please excuse any grammatical, word or spelling errors. I have seen and evaluated the patient today. Discussed with the resident and agree with the residents finding and plan as documented in the resident's note. Changes highlighted in blue font. Objective - Vital Signs Vital signs: Vital Signs Temp 97.3 F L 06/03/25 07:52 Pulse 86 06/03/25 07:52 Resp 18 06/03/25 07:52 BP 165/89 06/03/25 07:52 Pulse Ox 97 06/03/25 07:52 FiO2 Intake & Output 06/02/25 06/03/25 06/03/25 18:59 06:59 18:59 Intake Total 300 240 Balance 300 240 Weight 113.398 kg 114.2 kg Intake: IV 300 Oral 240 Other: Voiding Method Toilet # Voids 1 - Labs CBC & Chem 7: 06/03/25 05:28 06/03/25 05:28 Labs: Abnormal Lab Results - Last 24 Hours (Table) 06/02/25 06/02/25 06/02/25 Range/Units 07:16 10:10 10:10 WBC 10.93 H (4.50-10.00) 10*3/uL Hct 51.0 H (39.6-50.0) % Immature Gran # (0.00-0.04) 10*3/uL Neutrophils # 7.71 H (1.80-7.70) 10*3/uL Eosinophils # (0.04-0.35) 10*3/uL PT 13.2 H (10.0-12.5) sec INR 1.2 H (<1.2) APTT 83.9 H (22.0-30.0) sec Sodium (137-145) mmol/L BUN (9-20) mg/dL Glucose (74-99) mg/dL POC Glucose (mg/dL) (70-110) mg/dL Hemoglobin A1c 6.4 H (<=6.0) % Cholesterol (0.00-200.00) mg/dL LDL Cholesterol, Calc (0.0-131.0) mg/dL 06/02/25 06/03/25 06/03/25 Range/Units 20:05 05:28 05:28 WBC (4.50-10.00) 10*3/uL Hct (39.6-50.0) % Immature Gran # 0.05 H (0.00-0.04) 10*3/uL Neutrophils # (1.80-7.70) 10*3/uL Eosinophils # 0.00 L (0.04-0.35) 10*3/uL PT (10.0-12.5) sec INR (<1.2) APTT (22.0-30.0) sec Sodium (137-145) mmol/L BUN (9-20) mg/dL Glucose (74-99) mg/dL POC Glucose (mg/dL) 133 H (70-110) mg/dL Hemoglobin A1c (<=6.0) % Cholesterol 207.00 H (0.00-200.00) mg/dL LDL Cholesterol, Calc 133.3 H (0.0-131.0) mg/dL 06/03/25 06/03/25 06/03/25 Range/Units 05:28 06:13 11:31 WBC (4.50-10.00) 10*3/uL Hct (39.6-50.0) % Immature Gran # (0.00-0.04) 10*3/uL Neutrophils # (1.80-7.70) 10*3/uL Eosinophils # (0.04-0.35) 10*3/uL PT (10.0-12.5) sec INR (<1.2) APTT (22.0-30.0) sec Sodium 135 L (137-145) mmol/L BUN 23 H (9-20) mg/dL Glucose 152 H (74-99) mg/dL POC Glucose (mg/dL) 146 H 117 H (70-110) mg/dL Hemoglobin A1c (<=6.0) % Cholesterol (0.00-200.00) mg/dL LDL Cholesterol, Calc (0.0-131.0) mg/dL
--- NOTE | 2025-06-03 12:29 | CA ---
Transthoracic Echo Report Name: Yousuf Steward Age: 65 Gender: M : 1960 Exam Date: 06/02/2025 16:02 Exam Location: [facility] Ht (in): 72 Wt (lb): 250 Ordering Physician: Elvis Farnsworth DO Attending/Referring Phys: [id number], Javad Culinary Manager Susu Harry, AMRSHA Procedure CPT: Indications: chf Cardiac Hx: Pacemaker, stent Technical Quality: Technically difficult study Contrast 1: Definity Total Dose (mL): 2 Contrast 2: Total Dose (mL): MEASUREMENTS (Male / Female) Normal Values 2D ECHO LV Diastolic Diameter PLAX 5.1 cm 4.2 - 5.9 / 3.9 - 5.3 cm LV Systolic Diameter PLAX 3.3 cm IVS Diastolic Thickness 1.1 cm 0.6 - 1.0 / 0.6 - 0.9 cm LVPW Diastolic Thickness 1.0 cm 0.6 - 1.0 / 0.6 - 0.9 cm LV Relative Wall Thickness 0.4 RV Internal Dim ED PLAX 3.6 cm LA Systolic Diameter LX 3.4 cm 3.0 - 4.0 / 2.7 - 3.8 cm M-MODE Aortic Root Diameter MM 3.3 cm AV Cusp Separation MM 2.2 cm DOPPLER AV Peak Velocity 113.2 cm/s AV Peak Gradient 5.1 mmHg Mitral E Point Velocity 90.8 cm/s Mitral A Point Velocity 75.9 cm/s Mitral E to A Ratio 1.2 MV Deceleration Time 156.2 ms MV E' Velocity 8.9 cm/s Mitral E to MV E' Ratio 10.2 TR Peak Velocity 216.4 cm/s TR Peak Gradient 18.7 mmHg Right Ventricular Systolic Press 28.7 mmHg FINDINGS Left Ventricle Left ventricular ejection fraction is estimated at 55-60 %. Left ventricular cavity size normal. Left ventricular wall thickness normal. No obvious regional wall motion abnormalities. Right Ventricle Mild right ventricular dilatation. Right ventricular systolic pressure within normal limits. Right Atrium Right atrium not well visualized. Left Atrium Normal left atrial size. No left atrial thrombus or mass present. Mitral Valve Mitral valve thickened. Mild mitral annular calcification. No evidence for mitral valve prolapse. No mitral stenosis. Aortic Valve Trileaflet aortic valve. No aortic stenosis. Mild aortic regurgitation. Tricuspid Valve Structurally normal tricuspid valve. Mild tricuspid regurgitation. Pulmonic Valve Structurally normal pulmonic valve. Trace pulmonic regurgitation. Pericardium No pericardial effusion. Aorta Normal size aortic root and proximal ascending aorta. CONCLUSIONS Normal LV systolic function Mild aortic insufficiency Mitral annular calcification noted Normal pulmonary artery systolic pressure Previewed by: Dr. Raimundo Vigil MD (Electronically Signed) Final Date: 03 June 2025 12:28
[2025-06-03 12:48] VITALS: BMI 34.1
[2025-06-03 16:18] LABS: Glucose,Whole Blood 132 mg/dL (70-110)
--- NOTE | 2025-06-03 19:45 | P.PN ---
Subjective Progress Note Date: 06/03/25 Patient is a 65-year-old male with history of heart block status post dual- chamber pacemaker, type 2 diabetes mellitus, obstructive sleep apnea, hypertension and hyperlipidemia presented to the ER with a complaint of sudden onset chest pain yesterday evening at home which he describes as squeezing type substernal radiating across his chest 10 out of 10 associated with dizziness, nausea vomiting and diaphoresis with no alleviating or aggravating factors. Patient reports that he was initially experiencing tightness of his jaw before he started experiencing this squeezing type substernal chest pain. Patient reports that he has been endorsing chest pain recently with physical activities. Patient is established with his primary top frame fitter Dr. Meyer whom he saw last summer for a stress test and apparently it was negative. He also underwent heart catheterization 10 years ago which was unremarkable for coronary artery disease. At the time of the interview, patient is still in 1 out of 10 pain. Patient denies orthopnea, PND, worsening ankle edema. Patient denies smoking history, alcohol history, use of illicit drugs. Labs and images: Troponin: 0.043, 0.050, 0.037 WBC 16.8, hemoglobin 7.7, platelet count 217, sodium 138, potation 0.3, BUN 35, creatinine 1.41, calcium 10.3, magnesium 2.2 EKG reveals paced rhythm with no ST-T wave elevations noted. Ventricular rate 59 bpm, GA interval of 50 ms, QRS duration 129, QTc 417. Chest x-ray shows no acute cardiopulmonary process CTA negative for pulm embolism 06/03/2025: Patient was seen and examined at bedside. Patient underwent stenting of the proximal left circumflex yesterday. Overnight no acute events. Patient reports no chest pain or shortness of breath. Sodium 135 potassium BUN 23, creatinine 1.1. Physical examination: Vital signs reviewed General: non toxic, no distress Head: atraumatic, normocephalic, symmetric Eyes: EOMI, no lid lag, anicteric sclera, pupils equal round reactive to light ENT: Nose and ears atraumatic Neck: No cervical lymphadenopathy, trachea midline, supple Mouth: no lip lesion, mucus membranes moist Cardiovascular: S1S2 reg, no murmur, positive dorsalis pedis pulse bilateral, no edema Lungs: CTA bilateral, no rhonchi, no rales, no accessory muscle use Abdominal: soft, nontender to palpation, no guarding Ext: muscle strength 5 out of 5 in all 4 extremities grossly, no gross muscle atrophy, no contractures, Neuro: CN II-XI grossly intact, no gross focal neuro deficits Psych: Alert, oriented, appropriate affect Assessment: #NSTEMI status post stenting of the proximal left circumflex artery #Heart block status post dual-chamber pacemaker #Type 2 diabetes mellitus #Obstructive sleep apnea #Hypertension #Hyperlipidemia aspirin, Plan: Continue with dual antiplatelet therapy with aspirin and Effient Continue statin, beta-marlin Order echocardiogram Possible discharge tomorrow Outpatient follow-up within 1 to 2 weeks Dictation was produced using [employer] dictation software. Please excuse any grammatical, word or spelling errors. Objective - Vital Signs Vital signs: Vital Signs Temp 97.3 F L 06/03/25 07:52 Pulse 84 06/03/25 15:01 Resp 18 06/03/25 15:01 BP 144/88 06/03/25 15:01 Pulse Ox 98 06/03/25 15:01 FiO2 Intake & Output 06/03/25 06/03/25 06/04/25 06:59 18:59 06:59 Intake Total 657 Balance 657 Weight 114.2 kg 114.2 kg Intake: Oral 657 Other: Voiding Method Toilet Toilet # Voids 4 # Bowel Movements 1 - Labs CBC & Chem 7: 06/03/25 05:28 06/03/25 05:28 Labs: Abnormal Lab Results - Last 24 Hours (Table) 06/02/25 06/03/25 06/03/25 Range/Units 20:05 05:28 05:28 Immature Gran # 0.05 H (0.00-0.04) 10*3/uL Eosinophils # 0.00 L (0.04-0.35) 10*3/uL Sodium (137-145) mmol/L BUN (9-20) mg/dL Glucose (74-99) mg/dL POC Glucose (mg/dL) 133 H (70-110) mg/dL Cholesterol 207.00 H (0.00-200.00) mg/dL LDL Cholesterol, Calc 133.3 H (0.0-131.0) mg/dL 06/03/25 06/03/25 06/03/25 Range/Units 05:28 06:13 11:31 Immature Gran # (0.00-0.04) 10*3/uL Eosinophils # (0.04-0.35) 10*3/uL Sodium 135 L (137-145) mmol/L BUN 23 H (9-20) mg/dL Glucose 152 H (74-99) mg/dL POC Glucose (mg/dL) 146 H 117 H (70-110) mg/dL Cholesterol (0.00-200.00) mg/dL LDL Cholesterol, Calc (0.0-131.0) mg/dL 06/03/25 Range/Units 16:16 Immature Gran # (0.00-0.04) 10*3/uL Eosinophils # (0.04-0.35) 10*3/uL Sodium (137-145) mmol/L BUN (9-20) mg/dL Glucose (74-99) mg/dL POC Glucose (mg/dL) 132 H (70-110) mg/dL Cholesterol (0.00-200.00) mg/dL LDL Cholesterol, Calc (0.0-131.0) mg/dL
[2025-06-03 19:48] LABS: Glucose,Whole Blood 229 mg/dL (70-110)
[2025-06-04 04:22] VITALS: RESP 18; TEMP 97.4
[2025-06-04 06:09] LABS: Glucose,Whole Blood 114 mg/dL (70-110)
[2025-06-04 07:22] LABS: African American GFR (CKD) 76 (>60 ml/min/1.73 sqM); Anion Gap 9 mmol/L; Blood Urea Nitrogen 26 mg/dL (9-20); Calcium 9.4 mg/dL (8.4-10.2); Carbon Dioxide 24 mmol/L (22-30); Chloride 105 mmol/L (98-107); Glucose 124 mg/dL (74-99); Magnesium 2.5 mg/dL (1.6-2.3); Non-African American GFR(CKD) 65 (>60 ml/min/1.73 sqM); Potassium 4.3 mmol/L (3.5-5.1); Sodium 138 mmol/L (137-145)
[2025-06-04 08:09] VITALS: BP 107/71; PULSE 79
--- NOTE | 2025-06-04 10:31 | P.PN ---
Subjective Progress Note Date: 06/04/25 Patient is a 65-year-old male with history of heart block status post dual- chamber pacemaker, type 2 diabetes mellitus, obstructive sleep apnea, hypertension and hyperlipidemia presented to the ER with a complaint of sudden onset chest pain yesterday evening at home which he describes as squeezing type substernal radiating across his chest 10 out of 10 associated with dizziness, nausea vomiting and diaphoresis with no alleviating or aggravating factors. Patient reports that he was initially experiencing tightness of his jaw before he started experiencing this squeezing type substernal chest pain. Patient reports that he has been endorsing chest pain recently with physical activities. 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 Meyer whom he saw last summer for a stress test and apparently it was negative. He also underwent heart catheterization 10 years ago which was unremarkable for coronary artery disease. At the time of the interview, patient is still in 1 out of 10 pain. Patient denies orthopnea, PND, worsening ankle edema. Patient denies smoking history, alcohol history, use of illicit drugs. Labs and images: Troponin: 0.043, 0.050, 0.037 WBC 16.8, hemoglobin 7.7, platelet count 217, sodium 138, potation 0.3, BUN 35, creatinine 1.41, calcium 10.3, magnesium 2.2 EKG reveals paced rhythm with no ST-T wave elevations noted. Ventricular rate 59 bpm, IA interval of 50 ms, QRS duration 129, QTc 417. Chest x-ray shows no acute cardiopulmonary process CTA negative for pulm embolism 06/03/2025: Patient was seen and examined at bedside. Patient underwent stenting of the proximal left circumflex yesterday. Overnight no acute events. Patient reports no chest pain or shortness of breath. Sodium 135 potassium BUN 23, creatinine 1.1. 06/04/2025: Patient seen and examined at bedside. No acute events overnight. He reports no chest pain or shortness of breath. Sodium 138, potassium 4.3, BUN 26, creatinine 1.16 Echocardiogram shows LVEF of 55 to 60%. Mild AI. Physical examination: Vital signs reviewed General: non toxic, no distress Head: atraumatic, normocephalic, symmetric Eyes: EOMI, no lid lag, anicteric sclera, pupils equal round reactive to light ENT: Nose and ears atraumatic Neck: No cervical lymphadenopathy, trachea midline, supple Mouth: no lip lesion, mucus membranes moist Cardiovascular: S1S2 reg, no murmur, positive dorsalis pedis pulse bilateral, no edema Lungs: CTA bilateral, no rhonchi, no rales, no accessory muscle use Abdominal: soft, nontender to palpation, no guarding Ext: muscle strength 5 out of 5 in all 4 extremities grossly, no gross muscle atrophy, no contractures, Neuro: CN II-XI grossly intact, no gross focal neuro deficits Psych: Alert, oriented, appropriate affect Assessment: #NSTEMI status post stenting of the proximal left circumflex artery #Heart block status post dual-chamber pacemaker #Type 2 diabetes mellitus #Obstructive sleep apnea #Hypertension #Hyperlipidemia aspirin, Plan: Continue with dual antiplatelet therapy with aspirin and Effient Continue statin, beta-marlin Patient is medically optimized cleared discharge from cardiology standpoint. Outpatient follow-up within [address] Yu Dictation was produced using [employer] dictation software. Please excuse any grammatical, word or spelling errors. Humza Michael MD PGY 2 Objective - Vital Signs Vital signs: Vital Signs Temp 97.4 F L 06/04/25 04:00 Pulse 79 06/04/25 07:57 Resp 18 06/04/25 07:57 BP 107/71 06/04/25 07:57 Pulse Ox 97 06/04/25 07:57 FiO2 Intake & Output 06/03/25 06/04/25 06/04/25 18:59 06:59 18:59 Intake Total 657 10 400 Balance 657 10 400 Weight 114.2 kg 112.3 kg Intake: IV 10 Invasive Line 1 10 Oral 657 400 Other: Voiding Method Toilet Toilet Toilet # Voids 4 # Bowel Movements 1 - Labs CBC & Chem 7: 06/03/25 05:28 06/04/25 06:36 Labs: Abnormal Lab Results - Last 24 Hours (Table) 06/03/25 06/03/25 06/03/25 Range/Units 05:28 11:31 16:16 BUN (9-20) mg/dL Glucose (74-99) mg/dL POC Glucose (mg/dL) 117 H 132 H (70-110) mg/dL Magnesium (1.6-2.3) mg/dL Cholesterol 207.00 H (0.00-200.00) mg/dL LDL Cholesterol, Calc 133.3 H (0.0-131.0) mg/dL 06/03/25 06/04/25 06/04/25 Range/Units 19:47 06:08 06:36 BUN 26 H (9-20) mg/dL Glucose 124 H (74-99) mg/dL POC Glucose (mg/dL) 229 H 114 H (70-110) mg/dL Magnesium 2.5 H (1.6-2.3) mg/dL Cholesterol (0.00-200.00) mg/dL LDL Cholesterol, Calc (0.0-131.0) mg/dL
--- NOTE | 2025-06-04 13:40 | P.DS ---
Providers Date of admission: 06/03/25 08:41 Attending physician: Leodan Fay MD Consults: 06/02/25 01:24 Consult Physician Urgent Consulting Provider: Homero Loera Consult Reason/Comments: cp Do you want consulting provider notified?: Yes 06/02/25 11:55 Consult Physician Routine Consulting Provider: [facility] Consult Reason/Comments: Post Interventional Patient Do you want consulting provider notified?: Already Contacted Primary care physician: Cory Villarreal MD Hospital Course: Discharge Diagnosis: NSTEMI s/p stenting of the proximal left circumflex artery CAD Hypertension Chronic: Chronic low back pain AV block s/p dual-chamber pacemaker Hyperlipidemia Obstructive sleep apnea Type 2 DM Anxiety/depression BPH Resolved: Hypertensive emergency Hospital Course: Patient is a 65-year-old male with history of heart block status post dual- chamber pacemaker, type 2 diabetes mellitus, obstructive sleep apnea, hypertension and hyperlipidemia presented to the ER with a complaint of sudden onset chest pain that started at home about 3 hours prior to presenting at the ED. Patient was admitted to the inpatient team and found to have NSTEMI. Vitals at the time of presentation were T - 97.8 F, AK - 83 bpm, BP - 196/110, O2Sat - 98% on room air. Labs and images: Troponin: 0.043, 0.050, 0.037, WBC 16.8, hemoglobin 7.7, platelet count 217, sodium 138, potation 0.3, BUN 35, creatinine 1.41, calcium 10.3, magnesium 2.2, EKG reveals paced rhythm with no ST-T wave elevations noted. Ventricular rate 59 bpm, AK interval of 50ms, QRS duration 129, QTc 417. Chest x-ray shows no acute cardiopulmonary process CTA negative for pulmonary embolism Echo showed normal LV systolic function, mild aortic insufficiency, mitral annular calcification, normal pulmonary artery systolic pressure. Patient was seen by the flake or shred roll operator and had a successful stenting of the proximal left circumflex artery with reduction in stenosis from 80% to less than 5%. Patient has been discharged on home medications, aspirin, lisinopril, prasugrel, atorvastatin. Patient is being discharged home and was recommended to follow-up with PCP and Cardiology. Patient seen and examined at bedside. Patient has no new complaints and is hemodynamically stable. Vital signs reviewed and stable Physical Exam: General: nontoxic, no distress, appears at stated age Derm: warm, dry, intact Head: atraumatic, normocephalic, symmetric Eyes: EOMI, anicteric sclera Mouth: no lip lesion, mucus membranes moist Cardiovascular: S1 S2 reg, no murmur, rubs, or gallops Lungs: CTA bilateral, no rhonchi, no rales, no accessory muscle use Abdominal: soft, non-tender to palpataion, no appreciable organomegaly Extremities: no gross muscle atrophy, no edema, no contractures Neuro: Alert, Oriented, CNII-XII grossly intact, gait normal Psych: well appearing, appropriate affect A total of greater than 30 minutes of time were spent preparing this complex discharge summary. Patient was discharged on 06/04/2025. I have seen and evaluated the patient today. Discussed with the resident and agree with the residents finding and plan as documented in the resident's note. Changes highlighted in blue font. Patient Condition at Discharge: Fair Plan - Discharge Summary New Discharge Prescriptions: New Aspirin 81 mg PO DAILY #90 tab lisinopriL [Zestril] 20 mg PO BID #60 tab Prasugrel [Effient] 10 mg PO DAILY #30 tab Atorvastatin [Lipitor] 40 mg PO HS #30 tab Continue Metoprolol Tartrate [Lopressor] 25 mg PO BID Flecainide Acetate 100 mg PO DAILY Empagliflozin [Jardiance] 10 mg PO HS Flecainide [Tambocor] 50 mg PO HS Venlafaxine HCl [Effexor] 200 mg PO DAILY Doxepin [SINEquan] 10 mg PO HS Fluticasone/Vilanterol [Breo Ellipta 200-25 Mcg Inhaler] 1 puff INHALATION RT-DAILY Tamsulosin HCl [Flomax] 0.4 mg PO HS predniSONE [Deltasone] 40 mg PO DAILY #8 tab Montelukast [Singulair] 10 mg PO DAILY Discontinued Rosuvastatin [Crestor] 10 mg PO DAILY Discharge Medication List Metoprolol Tartrate [Lopressor] 25 mg PO BID 09/11/14 [History] Flecainide Acetate 100 mg PO DAILY 12/18/14 [History] Doxepin [SINEquan] 10 mg PO HS 09/15/21 [History] Fluticasone/Vilanterol [Breo Ellipta 200-25 Mcg Inhaler] 1 puff INHALATION RT- DAILY 09/15/21 [History] Tamsulosin HCl [Flomax] 0.4 mg PO HS 04/27/22 [History] Empagliflozin [Jardiance] 10 mg PO HS 06/19/24 [History] predniSONE [Deltasone] 40 mg PO DAILY #8 tab 05/31/25 [Rx] Flecainide [Tambocor] 50 mg PO HS 06/02/25 [History] Montelukast [Singulair] 10 mg PO DAILY 06/02/25 [History] Venlafaxine HCl [Effexor] 200 mg PO DAILY 06/02/25 [History] Aspirin 81 mg PO DAILY #90 tab 06/04/25 [Rx] Atorvastatin [Lipitor] 40 mg PO HS #30 tab 06/04/25 [Rx] Prasugrel [Effient] 10 mg PO DAILY #30 tab 06/04/25 [Rx] lisinopriL [Zestril] 20 mg PO BID #60 tab 06/04/25 [Rx] Follow up Appointment(s)/Referral(s): Mando Yu MD [Medical Doctor] - 1 Week (Office will have to call you with a follow up appoitment time. ) Cory Villarreal MD [Primary Care Provider] - 06/11/25 4:00 pm Patient Instructions/Handouts: Heart Attack (DC), Chest Pain (DC), Heart Catheterization (DC) Activity/Diet/Wound Care/Special Instructions: Please follow up with PCP and cardiology. Discharge Disposition: HOME SELF-CARE
== END 2025-06-04 11:55 | disposition home or self-care (01) | DRG 322 ==
LOC: EC 18:43 → 6NMEDSUR 06-02 01:25 → 3SCARD 06-02 02:59 → OBSVTOIN 06-03 08:41
PROVIDERS: ADMIT Internal Medicine; ATTEND Internal Medicine
PROC: 027034Z Dilation of Coronary Artery, One Artery with Drug-eluting Intraluminal Device, Percutaneous Approach (ICD-10-PCS; principal; 2025-06-03)
PROC: 4A023N7 Measurement of Cardiac Sampling and Pressure, Left Heart, Percutaneous Approach (ICD-10-PCS; 2025-06-03)
PROC: B2111ZZ Fluoroscopy of Multiple Coronary Arteries using Low Osmolar Contrast (ICD-10-PCS; 2025-06-03)
PROC: B240ZZ3 Ultrasonography of Single Coronary Artery, Intravascular (ICD-10-PCS; 2025-06-03)
DX: I21.4 Non-ST elevation (NSTEMI) myocardial infarction (principal); I16.1 Hypertensive emergency; E11.9 Type 2 diabetes mellitus without complications; J45.909 Unspecified asthma, uncomplicated; F32.A Depression, unspecified; K90.41 Non-celiac gluten sensitivity; I10 Essential (primary) hypertension; G89.29 Other chronic pain; G47.33 Obstructive sleep apnea (adult) (pediatric); F41.9 Anxiety disorder, unspecified; E78.5 Hyperlipidemia, unspecified; M54.50 Low back pain, unspecified; I25.10 Atherosclerotic heart disease of native coronary artery without angina pectoris; I44.30 Unspecified atrioventricular block; M19.90 Unspecified osteoarthritis, unspecified site; N40.0 Benign prostatic hyperplasia without lower urinary tract symptoms; Z79.02 Long term (current) use of antithrombotics/antiplatelets; Z79.82 Long term (current) use of aspirin; Z79.84 Long term (current) use of oral hypoglycemic drugs; Z79.899 Other long term (current) drug therapy; Z82.49 Family history of ischemic heart disease and other diseases of the circulatory system; Z95.0 Presence of cardiac pacemaker
CPT/HCPCS: 36415; 71046; 71275; 74177; 80048; 80053; 80061; 83036; 83735; 83880; 84443; 84484; 85025; 85379; 85610; 85730; 92978; 93005; 93306; 93454; 94640; 96374; 99285